=== PATIENT | male | born 1960 | race Caucasian/White ===

== ENCOUNTER → 2019-07-13 09:06 | Outpatient (BNVA) | payer SELFPAY | PROVIDERS: Family Provider Family Medicine; PCP Family Medicine; Visit Provider Family Medicine | DX: E11.9 Type 2 diabetes mellitus without complications (principal); R79.89 Other specified abnormal findings of blood chemistry; E29.1 Testicular hypofunction; F17.219 Nicotine dependence, cigarettes, with unspecified nicotine-induced disorders; I10 Essential (primary) hypertension; K52.9 Noninfective gastroenteritis and colitis, unspecified | CPT/HCPCS: 80053; 83036 ==

== ENCOUNTER → 2020-01-10 08:43 | Outpatient (BNVA) | payer MEDICARE, SELFPAY | PROVIDERS: Family Provider Family Medicine; PCP Family Medicine; Visit Provider Family Medicine | DX: I10 Essential (primary) hypertension (principal); E11.9 Type 2 diabetes mellitus without complications; G47.10 Hypersomnia, unspecified | CPT/HCPCS: 80053; 80061; 82043; 83036; 85025 ==

== ENCOUNTER → 2020-02-01 08:45 | Outpatient (BNVA) | payer MEDICARE, SELFPAY | PROVIDERS: Family Provider Family Medicine; PCP Family Medicine; Visit Provider Family Medicine | DX: N28.9 Disorder of kidney and ureter, unspecified (principal); R79.89 Other specified abnormal findings of blood chemistry; J22 Unspecified acute lower respiratory infection; L30.9 Dermatitis, unspecified | CPT/HCPCS: 80048; 84403 ==

== ENCOUNTER → 2020-03-25 13:40 | Outpatient (BNVA) | payer MEDICARE, SELFPAY | PROVIDERS: Family Provider Family Medicine; PCP Family Medicine; Visit Provider Family Medicine | DX: N28.9 Disorder of kidney and ureter, unspecified (principal) | CPT/HCPCS: 80048 ==

== ENCOUNTER 2020-04-24 08:51 | Outpatient (CLI) | payer MEDICARE, SELFPAY | END 2020-04-24 08:52 | disposition home or self-care (01) | LOC: LAB 02-21 12:34 | PROVIDERS: PCP Family Medicine; Visit Provider Family Medicine | DX: E11.9 Type 2 diabetes mellitus without complications (principal) | CPT/HCPCS: 80053; 83036 ==

== ENCOUNTER 2020-05-05 11:22 | Emergency (ER) | payer MEDICARE, MEDICAID, SELFPAY ==
[2020-05-05 11:29] VITALS: BP 130/88; PULSE 109; RESP 18; TEMP 36.8; O2SAT 96; BMI 40.3
--- NOTE | 2020-05-05 11:43 | XRR_ITS ---
PROCEDURE INFORMATION: Exam: XR Left Ribs with PA Chest, 3 Views Exam date and time: 05/05/2020 1:00 PM Age: 59 years old Clinical indication: Chest wall pain; Left; Additional info: Left rib pain TECHNIQUE: Imaging protocol: XR Left ribs 3 views with PA chest. COMPARISON: CR Chest 2 views* [id number] 07/22/2017 3:30 PM FINDINGS: Lungs: Unremarkable. No consolidation. Pleural space: Unremarkable. No pleural effusion. No pneumothorax. Heart/Mediastinum: Unremarkable. No cardiomegaly. Bones/joints: Negative for acute left rib bone abnormalities. There is a chronic fracture right 8th rib. XR/XR ribs LT mn 3V w CXR1V [id number] IMPRESSION: 1. No acute findings. 2. Chronic fracture right 8th rib. 3. Negative for acute left rib bone abnormality
--- NOTE | 2020-05-05 11:59 | PC.NURSE ---
Read and agree with triage assessment.
--- NOTE | 2020-05-05 12:02 | ED_ITS ---
HPI - General Adult General: Chief complaint: General Medical Stated complaint: L lateral chest wall pain after lifting heavy item Time Seen by Provider: 05/05/20 11:35 Source: patient Mode of arrival: ambulatory Limitations: no limitations History of Present Illness: HPI narrative: 59-year-old male patient presents to the emergency department with complaints of left lower chest wall pain. He reports was lifting a 50 pound computer earlier today, was in the bent position during his lift of the object, coughed and felt an excruciating pain of his left lower chest wall. He reports similar symptoms in the past when he tore a muscle on the right side of his chest during heavy lifting. He reports cough is chronic, has not changed from baseline. He denies shortness of breath, lightheadedness or near syncope episode. States did not take pain medication prior to arrival. Location: chest (left lateral wall) Radiation: non-radiation Severity: moderate Severity scale (1-10): 7 Quality: stabbing, aching and dull Pain Consistency: intermittent Relieving factors: immobilization and rest Exacerbating factors: movement Associated symptoms: Reports no associated symptoms and cough (not changed from baseline); Deny chest pain, diaphoresis, dyspnea, headache(s), nausea, rash, palpitations or vomiting Treatments prior to arrival: none Review of Systems General: Reports: 10 or more systems reviewed and unremarkable except in HPI and below Const: Denies: fever(s), chills or diaphoresis Eyes: Denies: blurry vision or eye redness ENMT: Denies: throat pain, dental pain or disequilibrium Card: Reports: dyspnea on exertion (due to left lateral chest wall pain); Denies: chest pain, palpitations, irregular heart rhythm or swelling of feet/ankles Resp: Denies: dyspnea, productive cough, non-productive cough or wheezing GI: Denies: abdominal pain, nausea or vomiting : Denies: dysuria Musc: Denies: neck pain, back pain, joint swelling, joint warmth or muscle weakness Skin/Breast: Denies: rash or pruritus Neuro: Denies: headache(s), weakness in extremities or behavioral changes Psych: Denies: anxiety or depression Uday/Lymph: Denies: easy bruising PFS ED PFSH: Medical History (Updated 05/05/20 @ 13:54 by DANDY Lux) Benign essential HTN COPD (chronic obstructive pulmonary disease) Depression GERD (gastroesophageal reflux disease) Low testosterone EMMANUEL (obstructive sleep apnea) Type 2 diabetes mellitus, without long-term current use of insulin Surgical History History of cholecystectomy Family History Other Alzheimer disease Cancer Hypertension Social History Smoking and tobacco status: current every day smoker cigarettes Packs smoked per day: 1 Alcohol intake: never Physical Exam Const: COMMON NORMALS: no acute distress, patient oriented x3, healthy appearing, alert and well nourished GENERAL APPEARANCE: cooperative, comfortable and well hydrated; not in distress and not anxious NUTRITIONAL APPEARANCE: obese ORIENTATION/CONSCIOUSNESS: Yes awake, Yes oriented to person, Yes oriented to place and Yes oriented to time HENMT: COMMON NORMALS: normocephalic, atraumatic, Normal external nose present and moist oral mucous membranes HEAD & SCALP: normal to inspection, normocephalic and atraumatic NOSE: Normal external nose present Eye: COMMON NORMALS: Equal, round and reactive pupils present and EOMs intact bilaterally GENERAL EYE: appearance normal, both eyes and all related structures EYELID: eyelids normal PUPIL: Yes Equal, round and reactive pupils present Neck/C-Spine: COMMON NORMALS: full ROM and no lymphadenopathy GENERAL: Yes normal visual inspection, Yes trachea midline and No anterior neck swelling CERVICAL SPINE: Yes cervical ROM normal, No Cervical spine tenderness, No Paracervical muscle tenderness, No Paracervical spasm and No Trapezius muscle tenderness Lymph: LYMPHATIC: no lymphadenopathy noted Chest: COMMONS NORMALS: normal inspection of the chest and normal inspection of the breasts CHEST: Yes localized rib tenderness with anteroposterior compression (left) Location: 9th rib, 10th rib, 11th rib and 12th rib and Yes tenderness pectoral muscle on the left (lower) with point tenderness laterally Breast/axilla inspection: Yes normal inspection of the breasts Resp: COMMON NORMALS: normal respiratory effort and clear to auscultation bilaterally AUSCULTATION: clear to auscultation bilaterally Cardio: COMMON NORMALS: regular rhythm, S1 normal heart sound present, S2 normal heart sound present and Peripheral pulses 2+ throughout RHYTHM: regular rhythm HEART SOUNDS: S1 normal heart sound present and S2 normal heart sound present PERIPHERAL PULSES: Peripheral pulses 2+ throughout GI: COMMON NORMALS: Normal to inspection, nondistended, normoactive bowel s ounds present, Soft to palpation and non-tender INSPECTION: Yes normal to inspection, No abdominal wall ecchymosis, No Abdominal wall edema, No abdominal distension, Yes central obesity and No GI erythema present PALPATION: Yes Soft to palpation : COMMON NORMALS: Yes no CVA tenderness BLADDER/KIDNEY EXAM: Yes no CVA tenderness Back/Pelvis: COMMON NORMALS: no CVA tenderness, thoracic and lumbar spine normal to inspection, no thoracic nor lumbar tenderness, thoraco-lumbar ROM normal and straight leg raise negative bilaterally THORACIC SPINE/UPPER BACK: Yes normal to inspection, Yes thoracic ROM normal, No ROM limited, No pain with ROM, No thoracic spinal tenderness, No paraspinal muscle tenderness and No paraspinal muscle spasm LUMBAR SPINE/LOWER BACK: Yes normal to inspection, Yes lumbar ROM normal, No ROM limited, No lumbar spinal tenderness, No paraspinal muscle tenderness and No paraspinal muscle spasm Extremity: COMMON NORMALS: normal to inspection and capillary refill normal Neuro: COMMON NORMALS: patient oriented x3 and no focal motor deficits SENSORIUM/ORIENTATION: Yes alert, Yes oriented to person, Yes oriented to place and Yes oriented to time Psych: COMMON NORMALS: mental status grossly normal, Normal thought process present and cooperative ACTIVITY/MOTOR BEHAVIOR: Yes appropriate eye contact THOUGHT PROCESS: Normal thought process present Skin: COMMON NORMALS: no rashes or lesions noted and turgor normal GENERAL SKIN EXAM: no rashes or lesions noted and turgor normal Course ED course: 59-year-old male patient presents to the emergency department with left chest wall strain status post lifting 50 pound computer, x-ray results negative for rib fracture, results of testing discussed with the patient. He is requesting Robitussin liquid as cough increases pain in the left chest. Prescription of Robitussin provided, he was advised to follow-up with his primary care physician this week, advised to return to emergency department if concerning symptoms. Advised to refrain from heavy lifting, greater than 10 pounds for 7 days. Prescription of tramadol at home. Advised to continue medication for pain along with Tylenol. Verbalized understanding. Vital Signs: Vital signs: Vital Signs Temperature 98.2 F 05/05/20 11:29 Pulse Rate 84 12/06/20 14:17 Respiratory Rate 16 05/05/20 14:17 Blood Pressure 118/84 05/05/20 14:17 Pulse Oximetry 94 05/05/20 14:17 [facility] - General Adult Imaging Data^: CXR: Radiologist's impression: [facility] [address] [place] [address] XRay Report Signed Patient: Ovi Jeronimo #: [id number] : 1960Acct#:[id number] Age/Sex: 59 / MADM Date: 05/05/20 Loc: ERRoom/Bed: Attending Dr: Ordering Provider/Ordering MD: Jhoana Pierre Date of Service: 05/05/20 Procedure(s): XR ribs LT mn 3V w CXR1V [id number] Accession Number(s): [id number] Report Number: [id number] PROCEDURE INFORMATION: Exam: XR Left Ribs with PA Chest, 3 Views Exam date and time: 05/05/2020 1:00 PM Age: 59 years old Clinical indication: Chest wall pain; Left; Additional info: Left rib pain TECHNIQUE: Imaging protocol: XR Left ribs 3 views with PA chest. COMPARISON: CR Chest 2 views* [id number] 07/22/2017 3:30 PM FINDINGS: Lungs: Unremarkable. No consolidation. Pleural space: Unremarkable. No pleural effusion. No pneumothorax. Heart/Mediastinum: Unremarkable. No cardiomegaly. Bones/joints: Negative for acute left rib bone abnormalities. There is a chronic fracture right 8th rib. XR/XR ribs LT mn 3V w CXR1V [id number] IMPRESSION: 1. No acute findings. 2. Chronic fracture right 8th rib. 3. Negative for acute left rib bone abnormality Dictated By:Patric Mckeon Signed By:Simi Mckeon Date/Time:05/05/201337 DD/ 36 Discharge Plan Discharge Patient Disposition: Home Clinical Impression: Rib pain on left side Chest wall muscle strain Qualifiers: Encounter type: initial encounter Qualified Code(s): S29.011A - Strain of muscle and tendon of front wall of thorax, initial encounter Condition: Stable Prescriptions: No Action benzonatate 200 mg capsule 200 mg PO BID PRN (Reason: cough) Qty: 90 RF: 0 (DME) pen needle, diabetic [Comfort EZ Pen Coolidge] 32 gauge x 1/4 needle See Rx Instructions .ROUTE .MEDSUPPLY Qty: 50 RF: 2 testosterone cypionate 200 mg/mL oil 300 mg IM .EVERY 2 WEEKS Qty: 3 RF: 5 cholestyramine-aspartame [Cholestyramine Light] 4 gram powder See Rx Instructions .ROUTE .COMPLEX Qty: 239.4 RF: 0 albuterol sulfate [ProAir HFA] 90 mcg/actuation HFA aerosol inhaler 2 puff INHALATION Q6H PRN (Reason: shortness of breath or wheezing) Qty: 8.5 RF: 5 citalopram 40 mg tablet 40 mg PO QDAY@0400 RF: 0 tramadol-acetaminophen 37.5-325 mg tablet 1 tab PO QDAY@0400 PRN (Reason: pain) RF: 0 spironolactone 25 mg tablet 25 mg PO QDAY@0400 RF: 0 meloxicam 7.5 mg tablet 7.5 mg PO DAILY@0400 RF: 0 Protonix 40 mg tablet,delayed release (DR/EC) 40 mg PO DAILY@0400 RF: 0 lisinopril 10 mg tablet 10 mg PO DAILY@0400 RF: 0 gabapentin 300 mg capsule 300 mg PO TID@04,11,14 RF: 0 Singulair 10 mg tablet 10 mg PO QDAY@0400 RF: 0 hydrochlorothiazide 25 mg tablet 25 mg PO QAM@0400 RF: 0 Spiriva with HandiHaler 18 mcg capsule, w/inhalation device 1 cap INHALATION QDAY@1400 RF: 0 Abilify 2 mg tablet 2 mg PO DAILY@0400 RF: 0 Symbicort 80-4.5 mcg/actuation HFA aerosol inhaler 2 puff INHALATION BID@14,18 RF: 0 Victoza 2-Peter 0.6 mg/0.1 mL (18 mg/3 mL) pen injector 1.2 mg SUBCUT DAILY@1500 RF: 0 esomeprazole magnesium 40 mg Capsule,Delayed Release(Dr/Ec) 40 mg PO DAILY@0400 RF: 0 Discharge Orders: Discharge ED (Routine); Ordered 05/05/20 Ordered By: Jhoana Pierre Referrals: Trudy Cason DO [Primary Care Provider] - Discharge Diet: Diabetic and Low Fat Discharge Activity: Limit activity as instructed Patient Instructions: Chest Pain - Chest Wall, Muscle Strain (ED) Activity Restrictions/Additional Instructions: Continue tramadol as prescribed for pain May take Tylenol, [id number], as needed for pain Follow-up with up with your primary care provider this week if pain is not improved, return to the emergency department if you develop worsening symptoms such as nausea, abdominal pain, fever or worsening chest pain Warm moist heat alternate with cool compresses to the affected area several times daily to help with pain No heavy lifting, greater than 10 pounds for the next 7 days Take Robitussin as needed for cough Coding Level of Care Code ED Underwear Finisher for Chg Fwd Exam Comprehensive
[2020-05-05] MEDS: HYDROcodone-acetaminophen 5-325 mg Tablet 1 TAB PO (12:23)
[2020-05-05 13:50] VITALS: BP 109/62; PULSE 92; RESP 16
[2020-05-05 14:17] VITALS: BP 118/84; PULSE 84; RESP 16; O2SAT 94
== END 2020-05-05 14:17 | disposition home or self-care (01) ==
PROVIDERS: Emergency Provider Nurse Practitioner Family; PCP Family Medicine
DX: S29.011A Strain of muscle and tendon of front wall of thorax, initial encounter (principal); R07.81 Pleurodynia; I10 Essential (primary) hypertension; J44.9 Chronic obstructive pulmonary disease, unspecified; E11.9 Type 2 diabetes mellitus without complications; F17.210 Nicotine dependence, cigarettes, uncomplicated; X50.0XXA Overexertion from strenuous movement or load, initial encounter
CPT/HCPCS: 12345; 71101; 99281; 99283

== ENCOUNTER → 2020-06-17 11:26 | Outpatient (BNVA) | payer MEDICARE, MEDICAID, SELFPAY | PROVIDERS: PCP Family Medicine; Visit Provider Family Medicine | DX: E11.9 Type 2 diabetes mellitus without complications (principal) | CPT/HCPCS: 80048 ==

== ENCOUNTER → 2020-09-16 09:53 | Outpatient (BNVA) | payer MEDICARE, SELFPAY | PROVIDERS: PCP Family Medicine; Visit Provider Family Medicine | DX: N28.9 Disorder of kidney and ureter, unspecified (principal); I10 Essential (primary) hypertension; E11.9 Type 2 diabetes mellitus without complications | CPT/HCPCS: 80048 ==

== ENCOUNTER → 2020-10-14 08:54 | Outpatient (BNVA) | payer MEDICARE, SELFPAY | PROVIDERS: PCP Family Medicine; Visit Provider Family Medicine | DX: G89.29 Other chronic pain (principal); M54.2 Cervicalgia; R79.89 Other specified abnormal findings of blood chemistry | CPT/HCPCS: 80048; 84403 ==

== ENCOUNTER → 2020-11-19 08:08 | Outpatient (BNVA) | payer MEDICARE, SELFPAY | PROVIDERS: PCP Family Medicine; Visit Provider Family Medicine | DX: E11.9 Type 2 diabetes mellitus without complications (principal); I10 Essential (primary) hypertension; F17.219 Nicotine dependence, cigarettes, with unspecified nicotine-induced disorders | CPT/HCPCS: 80061; 83036; 85025 ==

== ENCOUNTER → 2020-12-02 14:37 | Outpatient (BNVA) | payer MEDICARE, SELFPAY | PROVIDERS: PCP Family Medicine; Visit Provider Nurse Practitioner | DX: E11.42 Type 2 diabetes mellitus with diabetic polyneuropathy (principal) | CPT/HCPCS: 82043 ==

== ENCOUNTER → 2021-01-31 14:48 | Outpatient (BNVA) | payer MEDICARE, SELFPAY | PROVIDERS: PCP Family Medicine; Visit Provider Family Medicine | DX: E11.22 Type 2 diabetes mellitus with diabetic chronic kidney disease (principal); N18.9 Chronic kidney disease, unspecified; E11.42 Type 2 diabetes mellitus with diabetic polyneuropathy | CPT/HCPCS: 80048 ==

== ENCOUNTER → 2021-05-02 08:26 | Outpatient (BNVA) | payer MEDICARE, SELFPAY | PROVIDERS: PCP Family Medicine; Visit Provider Family Medicine | DX: E11.9 Type 2 diabetes mellitus without complications (principal) | CPT/HCPCS: 80053; 83036 ==

== ENCOUNTER → 2021-07-09 09:35 | Outpatient (BNVA) | payer MEDICARE, SELFPAY | PROVIDERS: PCP Family Medicine; Visit Provider Family Medicine | DX: N18.9 Chronic kidney disease, unspecified (principal) | CPT/HCPCS: 80048 ==

== ENCOUNTER → 2021-08-15 13:27 | Outpatient (BNVA) | payer MEDICARE, SELFPAY | PROVIDERS: PCP Family Medicine; Visit Provider Family Medicine | DX: E87.1 Hypo-osmolality and hyponatremia (principal) | CPT/HCPCS: 80048 ==

== ENCOUNTER → 2021-10-31 08:22 | Outpatient (BNVA) | payer MEDICARE, SELFPAY | PROVIDERS: PCP Family Medicine; Visit Provider Family Medicine | DX: I10 Essential (primary) hypertension (principal); E11.9 Type 2 diabetes mellitus without complications; K21.9 Gastro-esophageal reflux disease without esophagitis; Z12.11 Encounter for screening for malignant neoplasm of colon; R60.0 Localized edema; F17.219 Nicotine dependence, cigarettes, with unspecified nicotine-induced disorders | CPT/HCPCS: 80053; 80061; 82043; 83036; 85025 ==

== ENCOUNTER → 2021-11-10 08:52 | Outpatient (BNVA) | payer MEDICARE, MEDICAID, SELFPAY | PROVIDERS: PCP Family Medicine; Visit Provider Surgery | DX: K21.9 Gastro-esophageal reflux disease without esophagitis (principal); Z12.11 Encounter for screening for malignant neoplasm of colon | CPT/HCPCS: 99203 ==

== ENCOUNTER 2022-01-06 08:55 | Inpatient (IN) | payer MEDICARE, MEDICAID, SELFPAY ==
[2022-01-06] VITALS (19 sets, daily range): BP systolic 72–112; BP diastolic 46–90; PULSE 68–90; RESP 18; TEMP 36.4–36.8; O2SAT 93–99; BMI 27.6
--- NOTE | 2022-01-06 09:06 | XRR_ITS ---
PROCEDURE INFORMATION: Exam: XR Chest Exam date and time: 01/06/2022 9:33 AM Age: 61 years old Clinical indication: Cough and dyspnea; Additional info: Dyspnea/cough TECHNIQUE: Imaging protocol: Radiologic exam of the chest. Views: 1 view. Total images: 3 COMPARISON: CR XR ribs LT mn 3V w CXR1V [id number] 05/05/2020 1:00 PM FINDINGS: Lungs: Unremarkable. No consolidation. Pleural spaces: Unremarkable. No pleural effusion. No pneumothorax. Heart/Mediastinum: Unremarkable. No cardiomegaly. Bones/joints: Old right rib fractures are evident. Osseous structures are unchanged from the prior exam. XR/XR chest 1V portable [id number] IMPRESSION: No acute cardiopulmonary process.
--- NOTE | 2022-01-06 09:13 | ECG_ITS ---
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 Measurements Intervals Lyndon Rate: 81 P: 77 WV: 140 QRS: 150 QRSD: 103 T: 48 QT: 414 QTc: 482 Interpretive Statements SINUS RHYTHM POSSIBLE RIGHT VENTRICULAR HYPERTROPHY [SOME/ALL OF: PROMINENT R IN V1, LATE TRANSITION, RAD, JESSI, SSS] MODERATE ST DEPRESSION [0.05+ mV ST DEPRESSION] No previous ECG available for comparison Electronically Signed On 01-06-2022 18:58:05 CDT by Neymar Pollard M.D. [id number]
[2022-01-06 09:27] LABS: ABG PCO2 36.6 mmHg (35-45); ABG PH Result 7.55 (7.35-7.45); Alveolar-Arterial Oxygen Gradi 4.5 mmHg (5-10); Arterial Blood Gas Hematocrit 56.9 % (42-52); Base Excess ABG 9.5 mmol/L (-2.0-2.0); Blood Gas Operator Identificat glc; Blood Gas Sample Site Brachial, right; Blood Gas Sample Type Arterial; Carboxyhemoglobin 8.6 %THgb (0.4-20.1); HCO3 ABG 32.3 mmol/L (22-26); HGB O2 Sat 89.3 % (95-100); Ionized Calcium Level - ABG 1.1 mmol/L (1.1-1.4); Methemoglobin 0.2 % (0.4-1.5); Oxygen Device ROOM AIR; Oxygen Saturation ABG 97.8; PO2 ABG 69.9 mmHg (80.0-100.0); Potassium Level - ABG 2.1 mmol/L (3.5-5.0); Total Hemoglobin 18.6 g/dL (14-18)
--- NOTE | 2022-01-06 09:32 | ED_ITS ---
HPI - Dizziness General: Chief Complaint: Dizziness Stated Complaint: headache, dizzy Time Seen by Provider: 01/06/22 09:04 Source: patient Mode of arrival: ambulatory Limitations: no limitations History of Present Illness: HPI Narrative: 61-year-old male presents emergency room with hypotension. Patient has nearly had a 100 pound weight loss in the last 10 months unintentionally. He denies any fever sweats or chills counterpoint was very weak and now using a cane he frequently has vomiting and early satiety difficulty with swallowing he denies any chest pain or shortness of breath denies any medic easy melena hematemesis coffee-ground emesis no hematuria no dysuria urgency or frequency no recent fever sweats or chills no productive cough. MD elicited complaint: dizziness and lightheadedness Timing: gradual onset Exacerbating factors: other (Eating makes nausea and vomiting worse) Relieving factors: nothing Associated symptoms: Reports malaise, nausea and vomiting; Denies chest pain, chills, nasal congestion or palpitations Associated neuro symptoms: Reports dysphagia; Deny confusion, difficulty speaking, diplopia, extremity weakness, facial numbness, facial weakness, gait changes, numbness in extremities or visual changes Review of Systems Const: Reports: change in appetite, fatigue and malaise; Denies: fever(s), chills or body aches ENMT: Denies: throat pain, ear or mastoid pain, nasal discharge or nasal congestion Card: Denies: chest pain, palpitations, irregular heart rhythm, edema, dyspnea on exertion or orthopnea Resp: Denies: dyspnea, productive cough or non-productive cough GI: Reports: nausea, vomiting, dysphagia, early satiety and other (Unexplained weight loss of nearly 100 pounds in 10 months); Denies: abdominal pain, hematemesis, coffee ground emesis, diarrhea, con stipation, bloating, hematochezia or melena : Denies: flank pain, difficulty urinating, dysuria, urinary frequency or urinary urgency Skin/Breast: Denies: rash or pruritus Neuro: Denies: numbness in extremities or confusion PFS ED PFSH: Medical History Benign essential HTN COPD (chronic obstructive pulmonary disease) Depression GERD (gastroesophageal reflux disease) Low testosterone EMMANUEL (obstructive sleep apnea) Type 2 diabetes mellitus, without long-term current use of insulin Surgical History History of cholecystectomy Family History Other Alzheimer disease Cancer Hypertension Social History Smoking and tobacco status: current every day smoker cigarettes Packs smoked per day: 1 Alcohol intake: never Physical Exam Const: GENERAL APPEARANCE: cooperative and comfortable ORIENTATION/CONSCIOUSNESS: Yes awake, Yes oriented to person, Yes oriented to place and Yes oriented to time HENMT: COMMON NORMALS: normocephalic, atraumatic and hearing grossly normal bilaterally HEAD & SCALP: normocephalic and atraumatic Resp: COMMON NORMALS: normal respiratory effort, No retractions, No use of accessory muscles and clear to auscultation bilaterally AUSCULTATION: clear to auscultation bilaterally Cardio: COMMON NORMALS: regular rate, regular rhythm and No murmurs present (Cardio) RATE: regular rate RHYTHM: regular rhythm GI: COMMON NORMALS: Soft to palpation and No hepatosplenomegaly present AUSCULTATION: Yes normoactive bowel sounds PALPATION: Yes Soft to palpation, No Tenderness to palpation present (GI), No Guarding due to palpation present (GI) and Yes No hepatosplenomegaly present Extremity: COMMON NORMALS: normal to inspection, capillary refill normal, no clubbing, cyanosis or edema, no calf tenderness and no pedal edema Neuro: SENSORIUM/ORIENTATION: Yes oriented to person, Yes oriented to place and Yes oriented to time Skin: COMMON NORMALS: no rashes or lesions noted GENERAL SKIN EXAM: no rashes or lesions noted Course Vital Signs: Vital signs: Vital Signs Temperature 97.6 F 01/06/22 08:58 Pulse Rate 69 01/06/22 13:00 Respiratory Rate 18 01/06/22 08:58 Blood Pressure 99/70 01/06/22 13:00 Pulse Oximetry 94 01/06/22 13:00 Oxygen Delivery Me thod 01/06/22 13:00 MDM - Dizziness Medical Decision Making CT concerning for esophageal cancer especially given his weight loss and his description of dysphagia. Discussed Dr. Carter will admit he is consulted Dr. Frederick. Patient has hypokalemia which we have begun to address he also has acute kidney injury Dr. Carter is aware. Reviewed with patient any he is aware of plan as well. Medical Records I reviewed the patient's medical records. Lab Data I reviewed the patient's lab results. : 01/06/22 09:30 01/06/22 09:30 Radiology Impressions Chest X-Ray 01/06/22 09:06 IMPRESSION: No acute cardiopulmonary process. Chest/Abdomen/Pelvis CT 01/06/22 12:32 IMPRESSION: 1. Distal esophageal wall thickening with extension into the fundus of the st omach. Differential includes esophagitis and neoplasm. Suspect neoplasm as there are several enlarged lymph nodes at the gastrohepatic ligament with the largest measuring 2.4 cm in diameter. 2. Additional lobulated thickening extending into the fundus of the stomach with mild diffuse mucosal thickening of the stomach. 3. Recommend upper endoscopy to evaluate the distal esophagus and the stomach. 4. PET/CT may be helpful to evaluate the abnormal lymph nodes along the gastrohepatic ligament. There are smaller retroperitoneal lymph nodes. 5. Indeterminate bilateral hilar lymph nodes with the largest measuring 12 mm on the LEFT. Laboratory Results WBC 12.3 10^3/uL (4.0-10.0) H 01/06/22 09:30 RBC 5.53 10^6/uL (4.1-5.3) H 01/06/22 09:30 Hgb 17.6 g/dL (11.7-16.6) H 01/06/22 09:30 Hct 48.8 % (42.0-52.0) 01/06/22 09:30 MCV 88.2 fl (80-94) 01/06/22 09:30 MCH 31.8 pg (28.0-34.0) 01/06/22 09:30 MCHC 36.1 g/dL (30.0-36.0) H 01/06/22 09:30 RDW 13.1 % (12.1-15.1) 01/06/22 09:30 Plt Count 320 10^3/cmm (130-400) 01/06/22 09:30 MPV 9.8 fL (7.4-10.4) 01/06/22 09:30 Neut % (Auto) 73.0 % 01/06/22 09:30 Lymph % (Auto) 20.4 % 01/06/22 09:30 [place] % (Auto) 5.1 % 01/06/22 09:30 Eos % (Auto) 0.8 % 01/06/22 09:30 Baso % (Auto) 0.4 % 01/06/22 09:30 Neut # (Auto) 8.95 10^3/uL (1.8-7.7) H 01/06/22 09:30 Lymph # (Auto) 2.5 10^3/uL (0.8-4.8) 01/06/22 09:30 [place] # (Auto) 0.6 10^3/uL (0.2-0.9) 01/06/22 09:30 Eos # (Auto) 0.1 10^3/uL (0.0-0.8) 01/06/22 09:30 Baso # (Auto) 0.1 10^3/uL (0.0-0.1) 01/06/22 09:30 Nucleated RBC % (auto) 0 % 01/06/22 09:30 Nucleated RBCs # 0.0 /100WBC 01/06/22 09:30 Specimen Type Arterial 01/06/22 09:15 Sample Site Brachial, right 01/06/22 09:15 ABG pH 7.55 (7.35-7.45) H 01/06/22 09:15 ABG pCO2 36.6 mmHg (35-45) 01/06/22 09:15 ABG pO2 69.9 mmHg (80.0-100.0) L 01/06/22 09:15 ABG HCO3 32.3 mmol/L (22-26) H 01/06/22 09:15 ABG O2 Saturation 97.8 01/06/22 09:15 ABG Base Excess 9.5 mmol/L (-2.0-2.0) H 01/06/22 09:15 Jamel Test N/a 01/06/22 09:15 A-a O2 Gradient 4.5 mmHg (5-10) L 01/06/22 09:15 Hematocrit 56.9 % (42-52) H 01/06/22 09:15 Hgb O2 Saturation 89.3 % (95-100) L 01/06/22 09:15 Carboxyhemoglobin 8.6 %THgb (0.4-20.1) 01/06/22 09:15 Methemoglobin 0.2 % (0.4-1.5) L 01/06/22 09:15 Total Hemoglobin 18.6 g/dL (14-18) H 01/06/22 09:15 Sodium 126.0 mmol/L (131-143) L 01/06/22 09:15 Potassium 2.1 mmol/L (3.5-5.0) L 01/06/22 09:15 Glucose 82.0 mg/dL (70-115) 01/06/22 09:15 Ionized Calcium 1.1 mmol/L (1.1-1.4) 01/06/22 09:15 O2 Delivery Device Room air 01/06/22 09:15 FiO2 21.0 % 01/06/22 09:15 Torpedo Shooter ID glc 01/06/22 09:15 Sodium 130 mmol/L (136-145) L 01/06/22 09:30 Potassium 2.1 mmol/L (3.5-5.1) L* 01/06/22 09:30 Chloride 84 mmol/L (98-107) L 01/06/22 09:30 Carbon Dioxide 31 mmol/L (22-29) H 01/06/22 09:30 Anion Gap 17.1 (5-19) 01/06/22 09:30 BUN 19 mg/dL (6-20) 01/06/22 09:30 Creatinine 1.8 mg/dL (0.7-1.2) H 01/06/22 09:30 GFR Calculation 38.8 mL/min (90-130) L 01/06/22 09:30 Glucose 82 mg/dL (65-115) 01/06/22 09:30 Calculated Osmolality 271 mOsm/kg (285-295) L 01/06/22 09:30 Lactic Acid 1.3 mmol/L (0.5-2.2) 01/06/22 09:30 Calcium 8.5 mg/dL (8.5-10.5) 01/06/22 09:30 Total Bilirubin 0.6 mg/dL (0.15-1.2) 01/06/22 09:30 AST 14 U/L (0-40) 01/06/22 09:30 ALT 10 U/L (0-41) 01/06/22 09:30 Alkaline Phosphatase 87 IU/L (40-130) 01/06/22 09:30 Troponin T Baseline 22 ng/L (0-15) H 01/06/22 09:30 Troponin T 120 Minute 17.80 ng/L (0-15) H 01/06/22 11:16 Delta Troponin T -4.20 ABS# (0-10) L 01/06/22 11:16 Troponin T Hi Sens 6Hr 17.92 ng/L (0-15) H 01/06/22 15:10 Troponin T Hi Sens 6Hr Delta -4.08 ng/L (0-12) L 01/06/22 15:10 Total Protein 6.5 g/dL (6.6-8.7) L 01/06/22 09:30 Albumin 2.9 g/dL (3.5-5.2) L 01/06/22 09:30 Globulin 3.6 g/dL (1.3-4.6) 01/06/22 09:30 Lipase 14 U/L (13-60) 01/06/22 09:30 Urine Color Yellow (Yellow) 01/06/22 11:27 Urine Appearance Clear (CLEAR) 01/06/22 11:27 Urine pH 5 (5-7) 01/06/22 11:27 Ur Specific [place] 1.015 (1.005-1.030) 01/06/22 11:27 Urine Protein Neg (Negative) 01/06/22 11:27 Urine Glucose (UA) Norm (Normal) 01/06/22 11:27 Urine Ketones Negative (Negative) 01/06/22 11:27 Urine Blood Neg (Negative) 01/06/22 11:27 Urine Nitrate Negative (Negative) 01/06/22 11:27 Urine Bilirubin Neg (Negative) 01/06/22 11:27 Urine Urobilinogen Norm mg/dL (Negative) 01/06/22 11:27 Ur Leukocyte Esterase Negative (Negative) 01/06/22 11:27 Discharge Plan Discharge Patient Disposition: Admitted As Inpatient Clinical Impression: Esophageal mass, Type 2 diabetes mellitus, without long-term current use of insulin, Weight loss, abnormal, Hypokalemia, Acute kidney injury, Benign essential HTN Condition: Stable Prescriptions: No Action Spiriva with HandiHaler 18 mcg capsule, w/inhalation device 1 cap INHALATION QDAY@1400 90 Days Qty: 90 1RF pantoprazole [Protonix] 40 mg tablet,delayed release (DR/EC) 40 mg PO BID 90 Days Qty: 180 0RF (DME) pen needle, diabetic [Comfort EZ Pen [place]] 32 gauge x 1/4 needle See Rx Instructions .ROUTE .MEDSUPPLY Qty: 50 2RF Rx Instructions: As directed for Victoza Singulair 10 mg tablet 10 mg PO DAILY Qty: 90 3RF spironolactone 25 mg tablet 25 mg PO QDAY@0400 Qty: 90 0RF potassium chloride [Klor-Con 10] 10 mEq tablet extended release 10 meq PO DAILY Qty: 90 0RF fluticasone propion-salmeterol [Advair Diskus] 250-50 mcg/dose blister with device 1 inh inhalation BID Qty: 60 5RF citalopram 40 mg tablet 40 mg PO QDAY@0400 Qty: 90 0RF furosemide [Lasix] 20 mg tablet 20 mg PO DAILY 30 Days Qty: 30 1RF lisinopril 10 mg tablet 10 mg PO DAILY@0400 90 Days Qty: 90 0RF albuterol sulfate [ProAir HFA] 90 mcg/actuation HFA aerosol inhaler 2 puff INHALATION Q6H PRN (Reason: shortness of breath or wheezing) Qty: 8.5 5RF tramadol-acetaminophen 37.5-325 mg tablet 1 tab PO QDAY@0400 PRN (Reason: pain) Qty: 30 1RF Rx Instructions: Must last 30 days testosterone cypionate 200 mg/mL oil 300 mg IM .EVERY 2 WEEKS 30 Days Qty: 3 3RF Rx Instructions: three bottles each month total of 3 ML gabapentin 300 mg capsule See Rx Instructions .ROUTE .COMPLEX Qty: 120 0RF Dose Instruction: TAKE 1 CAPSULE BY MOUTH AT 1:00AM, TAKE 1 CAPSULE AT NOON, AND TAKE 1 CAPSULE EVERY DAY AT BEDTIME Rx Instructions: TAKE 1 CAPSULE BY MOUTH AT 1:00AM, TAKE 1 CAPSULE AT NOON, AND TAKE 1 CAPSULE EVERY DAY AT BEDTIME (DME) pen needle, diabetic [BD Ultra-Fine Micro Pen Needle] 32 gauge x 1/4 needle See Rx Instructions .Route Qty: 100 11RF Rx Instructions: USE DIRECTED FOR VICTOZA aripiprazole [Abilify] 2 mg tablet 2 mg PO DAILY Rx Instructions: TAKE 1 TABLET BY MOUTH DAILY AT 4 AM Cholestyramine Light 4 gram powder 4 g PO BID PRN (Reason: Diarrhea) Victoza 2-Peter 0.6 mg/0.1 mL (18 mg/3 mL) pen injector 1.2 mg SUBCUT DAILY Rx Instructions: ADMINISTER 1.2 MG UNDER THE SKIN DAILY AT 3 PM Carafate 1 gram tablet 1 g PO Q6H PRN (Reason: Stomach Upset) Flonase Allergy Relief 50 mcg/actuation spray,suspension 2 spray intranasal DAILY PRN (Reason: Shortness Of Breath) Rx Instructions: administer into each nostril Referrals: Trudy Cason DO [Primary Care Provider] - Coding Level of Care Code ED Vest Front Presser for Colleen Chaidez
[2022-01-06] MEDS: sodium chloride 0.9% 2,558.25 ML 2558.25 ML IV (09:42)
[2022-01-06 09:45] LABS: Basophils # 0.1 10^3/uL (0.0-0.1); Basophils % 0.4 %; Eosinophils # 0.1 10^3/uL (0.0-0.8); Eosinophils % 0.8 %; Hematocrit 48.8 % (42.0-52.0); Hemoglobin 17.6 g/dL (11.7-16.6); Lymphocytes # 2.5 10^3/uL (0.8-4.8); Lymphocytes % 20.4 %; Mean Corpuscular HGB Conc 36.1 g/dL (30.0-36.0); Mean Corpuscular Hemoglobin 31.8 pg (28.0-34.0); Mean Corpuscular Volume 88.2 fl (80-94); Mean Platelet Volume 9.8 fL (7.4-10.4); Monocytes # 0.6 10^3/uL (0.2-0.9); Monocytes % 5.1 %; Neutrophils # 8.95 10^3/uL (1.8-7.7); Nucleated Red Blood Cells % 0 %; Platelet Count 320 10^3/cmm (130-400); Red Blood Count 5.53 10^6/uL (4.1-5.3); Red Cell Distribution Width 13.1 % (12.1-15.1); White Blood Count 12.3 10^3/uL (4.0-10.0)
[2022-01-06 10:09] LABS: Lactic Sepsis W/Reflex 1.3 mmol/L (0.5-2.2)
[2022-01-06 10:11] LABS: Troponin(5th) Baseline 22 ng/L (0-15)
[2022-01-06 10:32] LABS: Alanine Aminotransferase 10 U/L (0-41); Albumin Level 2.9 g/dL (3.5-5.2); Alkaline Phosphatase 87 IU/L (40-130); Aspartate Amino Transferase 14 U/L (0-40); Blood Urea Nitrogen 19 mg/dL (6-20); Calcium 8.5 mg/dL (8.5-10.5); Carbon Dioxide 31 mmol/L (22-29); Chloride 84 mmol/L (98-107); Globulin 3.6 g/dL (1.3-4.6); Glomerular Filtration Rate 38.8 mL/min (90-130); Glucose 82 mg/dL (65-115); Lipase 14 U/L (13-60); Osmolality Calculated 271 mOsm/kg (285-295); Sodium 130 mmol/L (136-145); Total Bilirubin 0.6 mg/dL (0.15-1.2); Total Protein 6.5 g/dL (6.6-8.7)
[2022-01-06 10:37] LABS: Anion Gap 17.1 (5-19)
[2022-01-06 10:38] LABS: Potassium 2.1 mmol/L (3.5-5.1)
--- NOTE | 2022-01-06 11:11 | ECG_ITS ---
[facility] Test Date: 2022-01-06 Pat Name: Ovi Jeronimo Department: Room: Gender: Male Telecommunications Clerk: : 1960 Requested By: Jose Angel Hebert Order Number: [id number] Julita MD: Neymar Pollard M.D. Measurements Intervals [place] Rate: 69 P: 72 ND: 173 QRS: 128 QRSD: 111 T: 50 QT: 367 QTc: 396 Interpretive Statements SINUS RHYTHM POSSIBLE RIGHT VENTRICULAR HYPERTROPHY [SOME/ALL OF: PROMINENT R IN V1, LATE TRANSITION, RAD, JESSI, SSS] NONSPECIFIC T-WAVE ABNORMALITY Compared to ECG 01/06/2022 09:13:00 T-wave abnormality now present ST (T wave) deviation no longer present Electronically Signed On 01-06-2022 19:01:31 CDT by Neymar Pollard M.D. [id number]
[2022-01-06 11:32] LABS: Add Urine Microscopic? NO; Charge for UA Resulting for Rev
[2022-01-06 11:33] LABS: Bilirubin Urine Neg (Negative); Blood Urine Neg (Negative); Glucose Urine UA Norm (Normal); Ketones Urine Negative (Negative); Leukocyte Esterase Urine Negative (Negative); Nitrate Urine Negative (Negative); Protein Urine Neg (Negative); Specific Gravity, Urine 1.015 (1.005-1.030); Urine Appearance Clear (CLEAR); Urine Color Yellow (Yellow); Urobilinogen Urine Norm (Negative); pH Urine 5 (5-7)
--- NOTE | 2022-01-06 12:32 | CT_ITS ---
WS: [id number] CT CHEST, ABDOMEN AND PELVIS WITH CONTRAST. HISTORY: weight loss, dysphagia TECHNIQUE: Contiguous 5 mm axial imaging performed through the chest, abdomen and pelvis with IV cont rast, oral contrast has not been provided. Coronal and sagittal reformats chest. Coronal and sagittal reformats through the abdomen and pelvis. All CT scans at [facility] use at least one of the se dose optimization techniques: automated exposure control; mA and/or kV adjustment per patient size (includes targeted exams where dose is matched to clinical indication); or iterative reconstruction. CONTRAST: Omnipaque 350; 95 mL IV. DLP: 1098.65 mGy.cm COMPARISON: None available. Chest CT: No pulmonary mass, pneumonia or nodules. There is some very minimal distal interstitial thi ckening which is diffuse and can be seen with a mild pneumonitis. No pleural effusion. Heart size is normal. Very mild atherosclerosis in the aorta. Normal size pulmonary artery. Fluid distention of the esophagus beginning at the level of the james extending to the gastroesophag eal junction. There is diffuse wall thickening of the distal esophagus measuring up to 14 mm. Possibl e stricture at the GE junction with increased soft tissue. Small hilar lymph nodes with the largest on the LEFT measuring [address]: Normal size liver. No bile duct dilatation. Prior cholecystectomy. Normal size spleen. No rmal pancreas and adrenal glands. Normal size kidneys. Cortical cyst lower pole LEFT kidney measures 8 mm. Atherosclerosis aorta. No aneurysm. Diffuse wall thickening throughout the stomach. No obstruction from the antrum. Nodular thickening to wards the fundus of the stomach. Enlarged lymph node along the gastrohepatic ligament. There is a lym ph node measuring 2.4 cm in diameter. There is a smaller adjacent 1.0 cm lymph node. There are severa l small subcentimeter retrocrural and retroperitoneal lymph nodes. No significant diverticula throughout the colon. The appendix is not definitely identified. Pelvic CT: Urinary bladder is well distended. No free fluid or adenopathy within the pelvis. No osteoblastic or osteolytic bone disease. Prior healed rib fractures in the posterior RIGHT mid to lower thorax. CT/CT chest abd pel w con* IMPRESSION: 1. Distal esophageal wall thickening with extension into the fundus of the sto mach. Differential includes esophagitis and neoplasm. Suspect neoplasm as there are several enlarged lymph nodes at the gastrohepatic ligament with the larges t measuring 2.4 cm in diameter. 2. Additional lobulated thickening extending into the fundus of the stomach wi th mild diffuse mucosal thickening of the stomach. 3. Recommend upper endoscopy to evaluate the distal esophagus and the stomach. 4. PET/CT may be helpful to evaluate the abnormal lymph nodes along the gastro hepatic ligament. There are smaller retroperitoneal lymph nodes. 5. Indeterminate bilateral hilar lymph nodes with the largest measuring 12 mm on the LEFT.
[2022-01-06] MEDS: iohexol 350 mg/mL 100 mL Btl IV (12:40)
[2022-01-06] MEDS: potassium chloride premix 100 ML 25 MEQ IV ×2 (13:12→16:53)
--- NOTE | 2022-01-06 13:23 | PM.HP ---
Providers/Chief Complaint Admitting Physician: Jhoan Ornelas MD, hospitalist Primary Care Provider: Trudy Cason DO Chief Complaint: headache, dizzy History of Present Illness Ovi Jeronimo is a 61 year old male who presents to the emergency department complaining of dizziness, and significant weight loss. He reports he is having trouble keeping any kind of food down. He has had gradual increase in difficulty swallowing solids, for many months. He believes this became more significant in November. He has had some issues with liquids as well, but not as much. He has an occasional loose stool after 3 to 4 days. Over the last 6 to 10 months he has lost a tremendous amount of weight. He used to weigh approximately 140 kg, in 2019. No fever, cough, rhinorrhea. Does not really complain of headache to me. Denies nauseousness. Points to his upper sternum in regards to where food gets stuck or does not go down and he has to spit back up. He has had no blood in his stool, or black or tarry stools. He has not vomited any blood. In his primary care provider's office he was found to be hypotensive. In the emergency department he was found to be hypotensive and was given fluid boluses. Potassium is currently being supplemented. Review of Systems General: Reports: 10 or more systems reviewed and unremarkable except in HPI and below Const: Reports: change in appetite, change in weight, fatigue and malaise; Denies: fever(s) or chills Eyes: Denies: change in vision ENMT: Denies: throat pain Card: Denies: chest pain Resp: Denies: dyspnea GI: Reports: dysphagia and change in bowel habits : Denies: flank pain Musc: Denies: neck pain Skin/Breast: Denies: rash Neuro: Reports: dizziness; Denies: headache(s) Psych: Denies: anxiety or depression Endo: Denies: polyuria Uday/Lymph: Denies: easy bruising All/Imm: Denies: urticaria Medications/Allergies Home Medications Medication Instructions Recorded Confirmed Last Taken Type pen needle, diabetic 32 gauge x #50 ea 05/21/20 01/06/22 Unknown Rx / (Comfort EZ Pen [place]) montelukast 10 mg tablet 10 mg PO DAILY #90 tabs 12/13/20 01/06/22 01/05/22 Rx (Singulair) spironolactone 25 mg tablet 25 mg PO QDAY@0400 #90 tabs 07/28/21 01/06/22 01/05/22 Rx tiotropium bromide 18 mcg capsule 1 cap inhalation QDAY@1400 90 days 08/15/21 01/06/22 01/05/22 Rx with inhalation device (Spiriva #90 inhalations with HandiHaler) potassium chloride 10 mEq 10 meq PO DAILY #90 tabs 08/19/21 01/06/22 01/05/22 Rx tablet,extended release (Klor-Con) fluticasone 250 mcg-salmeterol 50 1 inh inhalation BID #60 ea 09/01/21 01/06/22 01/05/22 Rx mcg/dose blistr powdr for inhalation (Advair Diskus) citalopram 40 mg tablet 40 mg PO QDAY@0400 #90 tabs 09/10/21 01/06/22 01/06/22 Rx furosemide 20 mg tablet (Lasix) 20 mg PO DAILY 30 days #30 tabs 10/15/21 01/06/22 01/05/22 Rx lisinopril 10 mg tablet 10 mg PO DAILY@0400 90 days #90 10/23/21 01/06/22 01/05/22 Rx tabs albuterol sulfate 90 mcg/actuation 2 puff inhalation Q6H PRN 10/30/21 01/06/22 Unknown Rx aerosol inhaler (ProAir HFA) shortness of breath or wheezing #8.5 grams pantoprazole 40 mg tablet,delayed 40 mg PO BID 90 days #180 tabs 11/10/21 01/06/22 01/05/22 Rx release (Protonix) tramadol 37.5 mg-acetaminophen 325 1 tab PO QDAY@0400 PRN pain #30 11/18/21 01/06/22 01/05/22 Rx mg tablet tabs testosterone cypionate 200 mg/mL 300 mg (1.5 mL) IM .EVERY 2 WEEKS 12/08/21 01/06/22 Unknown Rx intramuscular oil 30 days #3 mL gabapentin 300 mg capsule See Rx Instructions .Route 12/24/21 01/06/22 01/06/22 Rx .COMPLEX #120 caps pen needle, diabetic 32 gauge x #100 ea 12/26/21 01/06/22 Unknown Rx 1/4 (BD Ultra-Fine Micro Pen Needle) aripiprazole 2 mg tablet (Abilify) 2 mg PO DAILY 12/30/21 01/06/22 01/06/22 History cholestyramine-aspartame 4 gram 4 g PO BID PRN Diarrhea 12/30/21 01/06/22 Unknown History oral powder (Cholestyramine Light) liraglutide 0.6 mg/0.1 mL (18 mg/3 1.2 mg SUBCUT DAILY 12/30/21 01/06/22 01/05/22 History mL) subcutaneous pen injector (Victoza 2-Peter) fluticasone propionate 50 2 spray intranasal DAILY PRN 01/06/22 01/06/22 Unknown History mcg/actuation nasal Shortness Of Breath spray,suspension (Flonase Allergy Relief) sucralfate 1 gram tablet (Carafate) 1 g PO Q6H PRN Stomach Upset 01/06/22 01/06/22 Unknown History Allergies Allergy/AdvReac Type Severity Reaction Status Date / Time No Known Allergies Allergy Verified 01/06/22 08:34 PFSH Acute PFSH: Medical History Benign essential HTN COPD (chronic obstructive pulmonary disease) Depression GERD (gastroesophageal reflux disease) Low testosterone EMMANUEL (obstructive sleep apnea) Type 2 diabetes mellitus, without long-term current use of insulin Surgical History History of cholecystectomy Family History Other Alzheimer disease Cancer Hypertension Social History Smoking and tobacco status: current every day smoker cigarettes Packs smoked per day: 1 Alcohol intake: never Vitals/I&O/Wt Last Vital Signs Temp 97.6 F 01/06/22 08:58 Pulse 88 01/06/22 08:58 Resp 18 01/06/22 08:58 BP 74/53 01/06/22 08:58 Pulse Ox 99 01/06/22 08:58 O2 Del Method 01/06/22 08:58 01/05/22 01/06/22 01/06/22 22:59 06:59 14:59 Intake Total 2558.25 / 2558.25 Balance 2558.25 / 2558.25 Weight last 48 hrs Weight 85.275 kg Data : 01/06/22 09:30 01/06/22 09:30 Other Labs: ABG demonstrates a pH of 7.55, PCO2 36, PO2 of 69 1.3 LFTs normal Troponin 22 with repeat of 17 Albumin 2.9 Urinalysis negative Chest x-ray read as negative CT chest abdomen pelvis suspect neoplasm distal esophageal wall secondary to thickening and some enlarged lymph nodes. He demonstrates sinus rhythm, right axis deviation, nonspecific ST-T wave changes A&P Assessment and plan (1) Dysphagia: Patient's history is very concerning for esophageal obstruction, possible malignancy CT scan seems to confirm this Will obtain GI consult, with general surgery Plan for EGD tomorrow Continue hydration currently Discussed in detail with patient Status: Acute (2) Weight loss, abnormal: See above Status: Acute (3) Hyponatremia: Likely secondary to renal dysfunction as well as vomiting Hydration with normal saline Repeat tomorrow Status: Acute (4) Hypokalemia: Supplementation initiated in the emergency department Repeat potassium tomorrow morning Magnesium was checked and normal Additional supplementation as needed Repeat laboratory later tonight. Status: Acute (5) Acute kidney injury: Significant acute kidney injury on presentation No evidence of obstruction on CT scan Avoid renal toxic medication Hydration Urinalysis was checked and normal Repeat renal function tomorrow Status: Acute (6) Type 2 diabetes mellitus, without long-term current use of insulin: Sliding scale insulin Status: Chronic Qualifiers: Diabetes mellitus complication status: without complication Qualified Code(s): E11.9 - Type 2 diabetes mellitus without complications (7) COPD (chronic obstructive pulmonary disease): No evidence of exacerbation DuoNeb every 6 hours as needed Budesonide twice daily Status: Acute Qualifiers: COPD type: emphysema Emphysema type: panlobular Qualified Code(s): J43.1 - Panlobular emphysema Plan Other medical problems as outlined in past medical history Full code Heparin for DVT prophylaxis Attestations Medical Necessity Statement*: Will need greater than 2 midnight stay for evaluation and treatment of dysphagia, acute kidney injury, probable esophageal mass, hypokalemia Coding Level of Care Code Acute Pediatric Oncologist for [facility] Fwd Diagnoses Dysphagia R13.10 Weight loss, abnormal R63.4 Hyponatremia E87.1 Hypokalemia E87.6 Acute kidney injury N17.9 Type 2 diabetes mellitus, without long-term current use of insulin E11.9 Diabetes mellitus complication status: without complication COPD (chronic obstructive pulmonary disease) J43.1 COPD type: emphysema Emphysema type: panlobular
--- NOTE | 2022-01-06 14:41 | PM.CONSULT ---
Providers/Reason For Consult Consulting Physician/Specialty*: lAex Boles MD Reason for Consult*: Concern for esophageal cancer Requesting Physician: Dr. Ornelas Attending Physician: Dr. Ornelas Primary Care Provider: Trudy Cason DO History of Present Illness History of Present Illness Ms. Ovi Jeronimo is a pleasant 61 year old male presented to the emergency department of [facility] with history of dizziness and nonintentional weight loss patient does report history of dysphagia and has been progressive over the past few months to the extent that he started to have food stuck and then vomited thereafter. No other associated symptoms. Patient reports that he smokes and he used to drink before couple of years. Patient undergone a CT of the chest abdomen and pelvis that did show 1.? Distal esophageal wall thickening with extension into the fundus of the stomach. Differential includes esophagitis and neoplasm. Suspect neoplasm as there are several enlarged lymph nodes at the gastrohepatic ligament with the largest measuring 2.4 cm in diameter. 2.? Additional lobulated thickening extending into the fundus of the stomach with mild diffuse mucosal thickening of the stomach. 3.? Recommend upper endoscopy to evaluate the distal esophagus and the stomach. 4.? PET/CT may be helpful to evaluate the abnormal lymph nodes along the gastrohepatic ligament. There are smaller retroperitoneal lymph nodes. 5.? Indeterminate bilateral hilar lymph nodes with the largest measuring 12 mm on the LEFT. General surgery was consulted for potential diagnostic EGD. Patient was seen and evaluated in the emergency department room #6 Review of Systems General: Reports: 10 or more systems reviewed and unremarkable except in HPI and below Medications/Allergies Home Medications Medication Instructions Recorded Confirmed Last Taken Type pen needle, diabetic 32 gauge x #50 ea 05/21/20 01/06/22 Unknown Rx / (Comfort EZ Pen [place]) montelukast 10 mg tablet 10 mg PO DAILY #90 tabs 12/13/20 01/06/22 01/05/22 Rx (Singulair) spironolactone 25 mg tablet 25 mg PO QDAY@0400 #90 tabs 07/28/21 01/06/22 01/05/22 Rx tiotropium bromide 18 mcg capsule 1 cap inhalation QDAY@1400 90 days 08/15/21 01/06/22 01/05/22 Rx with inhalation device (Spiriva #90 inhalations with HandiHaler) potassium chloride 10 mEq 10 meq PO DAILY #90 tabs 08/19/21 01/06/22 01/05/22 Rx tablet,extended release (Klor-Con) fluticasone 250 mcg-salmeterol 50 1 inh inhalation BID #60 ea 09/01/21 01/06/22 01/05/22 Rx mcg/dose blistr powdr for inhalation (Advair Diskus) citalopram 40 mg tablet 40 mg PO QDAY@0400 #90 tabs 09/10/21 01/06/22 01/06/22 Rx furosemide 20 mg tablet (Lasix) 20 mg PO DAILY 30 days #30 tabs 10/15/21 01/06/22 01/05/22 Rx lisinopril 10 mg tablet 10 mg PO DAILY@0400 90 days #90 10/23/21 01/06/22 01/05/22 Rx tabs albuterol sulfate 90 mcg/actuation 2 puff inhalation Q6H PRN 10/30/21 01/06/22 Unknown Rx aerosol inhaler (ProAir HFA) shortness of breath or wheezing #8.5 grams pantoprazole 40 mg tablet,delayed 40 mg PO BID 90 days #180 tabs 11/10/21 01/06/22 01/05/22 Rx release (Protonix) tramadol 37.5 mg-acetaminophen 325 1 tab PO QDAY@0400 PRN pain #30 11/18/21 01/06/22 01/05/22 Rx mg tablet tabs testosterone cypionate 200 mg/mL 300 mg (1.5 mL) IM .EVERY 2 WEEKS 12/08/21 01/06/22 Unknown Rx intramuscular oil 30 days #3 mL gabapentin 300 mg capsule See Rx Instructions .Route 12/24/21 01/06/22 01/06/22 Rx .COMPLEX #120 caps pen needle, diabetic 32 gauge x #100 ea 12/26/21 01/06/22 Unknown Rx 1/4 (BD Ultra-Fine Micro Pen Needle) aripiprazole 2 mg tablet (Abilify) 2 mg PO DAILY 12/30/21 01/06/22 01/06/22 History cholestyramine-aspartame 4 gram 4 g PO BID PRN Diarrhea 12/30/21 01/06/22 Unknown History oral powder (Cholestyramine Light) liraglutide 0.6 mg/0.1 mL (18 mg/3 1.2 mg SUBCUT DAILY 12/30/21 01/06/22 01/05/22 History mL) subcutaneous pen injector ([employer] 2-Peter) fluticasone propionate 50 2 spray intranasal DAILY PRN 01/06/22 01/06/22 Unknown History mcg/actuation nasal Shortness Of Breath spray,suspension (Flonase Allergy Relief) sucralfate 1 gram tablet (Carafate) 1 g PO Q6H PRN Stomach Upset 01/06/22 01/06/22 Unknown History Allergies Allergy/AdvReac Type Severity Reaction Status Date / Time No Known Allergies Allergy Verified 01/06/22 08:34 Current Medications Generic Name Dose Route Start Last Admin Trade Name Freq PRN Reason Stop Dose Admin Potassium Chloride 100 mls @ 25 mls/hr 01/06/22 12:30 01/06/22 13:12 K-Hermes IV 01/06/22 20:29 25 mls/hr Q4H HUSAM Administration PFSH Acute PFSH: Medical History Benign essential HTN COPD (chronic obstructive pulmonary disease) Depression GERD (gastroesophageal reflux disease) Low testosterone EMMANUEL (obstructive sleep apnea) Type 2 diabetes mellitus, without long-term current use of insulin Surgical History History of cholecystectomy Family History Other Alzheimer disease Cancer Hypertension Social History Smoking and tobacco status: current every day smoker cigarettes Packs smoked per day: 1 Alcohol intake: never Vitals/I&O/Wt Last Vital Signs Temp 97.6 F 01/06/22 08:58 Pulse 69 01/06/22 13:00 Resp 18 01/06/22 08:58 BP 99/70 01/06/22 13:00 Pulse Ox 94 01/06/22 13:00 O2 Del Method 01/06/22 13:00 01/05/22 01/06/22 01/06/22 22:59 06:59 14:59 Intake Total 2558.25 / 2558.25 Balance 2558.25 / 2558.25 Weight last 48 hrs Weight 188 lb Physical Exam Const: COMMON NORMALS: no acute distress and patient oriented x3 GENERAL APPEARANCE: cooperative ORIENTATION/CONSCIOUSNESS: Yes awake, Yes oriented to person, Yes oriented to place and Yes oriented to time HENMT: COMMON NORMALS: normocephalic HEAD & SCALP: normocephalic Eye: COMMON NORMALS: Equal, round and reactive pupils present and no scleral icterus PUPIL: Yes Equal, round and reactive pupils present Lymph: LYMPHATIC: no lymphadenopathy noted Chest: COMMONS NORMALS: normal inspection of the chest Resp: COMMON NORMALS: normal respiratory effort and clear to auscultation bilaterally AUSCULTATION: clear to auscultation bilaterally Cardio: COMMON NORMALS: S1 normal heart sound present and S2 normal heart sound present; negative for No murmurs present (Cardio) HEART SOUNDS: S1 normal heart sound present and S2 normal heart sound present GI: COMMON NORMALS: Soft to palpation; negative for No hepatosplenomegaly present INSPECTION: Yes normal to inspection PALPATION: Yes Soft to palpation, No Firmness to palpation present (GI), No Tenderness to palpation present (GI), No Guarding due to palpation present (GI), No Rigid due to palpation and No No hepatosplenomegaly present Neuro: COMMON NORMALS: patient oriented x3 SENSORIUM/ORIENTATION: Yes oriented to person, Yes oriented to place and Yes oriented to time Psych: COMMON NORMALS: mental status grossly normal Skin: COMMON NORMALS: no rashes or lesions noted GENERAL SKIN EXAM: no rashes or lesions noted Data : 01/06/22 09:30 01/06/22 09:30 A&P Assessment and plan (1) Dysphagia: Plan of care; After thorough history and physical examination and reviewing the chart and the CT scan with my personal interpretation, plan to perform a diagnostic esophagogastroduodenoscopy with possible biopsy in the GI lab. Highly concerning for gastro esophageal carcinoma. I discussed with the patient in detail the risk,benefits,alternatives and indications.The risk of aspiration, bleeding, soft tissue injury, perforation of the stomach/esophagus and other potential concomitant complications were explained to the patient in details,aslo the potential need for Thoracic and or Abdominal surgery to repair any complications.The patient understood this well and did agree to proceed. Rationale was carefully and clearly discussed with the patient.Appropriate informed consent have been reviewed and signed All questions have been answered and all concerns have been addressed to patient's satisfaction. IV fluid resuscitation per hospitalist service and will keep n.p.o. after midnight Status: Acute Consult Attestations Medical Necessity Statement: Per admitting service Time Spent in Patient Care: 16 - 35 minutes Coding Level of Care Code Acute Rfp Writer for Chg Fwd Diagnoses Dysphagia R13.10
--- NOTE | 2022-01-06 15:08 | ECG_ITS ---
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 Measurements Intervals [place] Rate: 77 P: 62 TN: 169 QRS: 5 QRSD: 109 T: 60 QT: 409 QTc: 463 Interpretive Statements SINUS RHYTHM Compared to ECG 01/06/2022 11:11:24 T-wave abnormality no longer present Electronically Signed On 01-06-2022 19:00:49 CDT by Neymar Pollard M.D. [email or web address] [email or web address] World ([place]) ITlouis stokes [facility].Thounds/store/OM/[id number]
[2022-01-06] MEDS: heparin 5,000 unit/mL INJ 1 mL 5000 UNIT SUBCUT (15:24)
[2022-01-06] MEDS: pantoprazole 40 mg SDV IVP (15:27)
[2022-01-06] MEDS: sodium chloride 0.9% 1,000 ML 125 ML IV ×2 (15:28→21:58)
[2022-01-06 15:53] LABS: Troponin 5 6HR 17.92 ng/L (0-15)
[2022-01-06 15:55] LABS: Troponin 5 6HR Delta -4.08 ng/L (0-12)
--- NOTE | 2022-01-06 19:02 | PC.NURSE ---
assumed care of patient at this time.
--- NOTE | 2022-01-06 19:14 | PC.NURSE ---
attempted to call report at this time, call was answered and hung up. will reattempt. Francesca BERMEO stated in report that she attempted x 2 during am shift.
--- NOTE | 2022-01-06 19:34 | PC.NURSE ---
attempted report at this time, spoke with Jai, states that nurse taking report, Christi, is in a patient room and will call back.
--- NOTE | 2022-01-06 19:40 | PC.NURSE ---
report called to Christi, accepted to 256-2 med surg.
[2022-01-06 21:51] LABS: Glucose Point of Care 92 mg/dL (70-110)
[2022-01-06] MEDS: nicotine 21 mg Patch 1 PATCH TRANSDERMA (21:57)
[2022-01-06 22:17] LABS: Anion Gap 10.4 (5-19); Blood Urea Nitrogen 12 mg/dL (6-20); Calcium 7.7 mg/dL (8.5-10.5); Carbon Dioxide 31 mmol/L (22-29); Chloride 101 mmol/L (98-107); Glomerular Filtration Rate 68.5 mL/min (90-130); Glucose 71 mg/dL (65-115); Osmolality Calculated 288 mOsm/kg (285-295); Sodium 140 mmol/L (136-145)
[2022-01-06 22:23] LABS: Potassium 2.4 mmol/L (3.5-5.1)
[2022-01-07] VITALS (13 sets, daily range): BP systolic 94–114; BP diastolic 48–72; PULSE 84–93; RESP 11–20; TEMP 36.5–36.8; O2SAT 92–100
[2022-01-07] MEDS: lidocaine 1% 5 ML in potassium chloride premix 100 ML 25 ML IV ×5 (00:23→21:08)
[2022-01-07] MEDS: pantoprazole 40 mg SDV IVP (02:18)
[2022-01-07] MEDS: heparin 5,000 unit/mL INJ 1 mL 5000 UNIT SUBCUT (02:19)
[2022-01-07] MEDS: acetaminophen 325 mg Tablet 650 MG PO (02:22)
[2022-01-07] MEDS: citalopram 20 mg Tablet 40 MG PO (02:25)
[2022-01-07 05:52] LABS: Basophils % 0.4 %; Eosinophils # 0.1 10^3/uL (0.0-0.8); Eosinophils % 1.2 %; Hematocrit 43.1 % (42.0-52.0); Hemoglobin 14.8 g/dL (11.7-16.6); Lymphocytes # 1.9 10^3/uL (0.8-4.8); Lymphocytes % 25.1 %; Mean Corpuscular HGB Conc 34.3 g/dL (30.0-36.0); Mean Corpuscular Hemoglobin 31.5 pg (28.0-34.0); Mean Corpuscular Volume 91.7 fl (80-94); Mean Platelet Volume 10.4 fL (7.4-10.4); Monocytes # 0.5 10^3/uL (0.2-0.9); Monocytes % 6.1 %; Neutrophils # 5.17 10^3/uL (1.8-7.7); Neutrophils % 66.9 %; Nucleated Red Blood Cells % 0 %; Platelet Count 266 10^3/cmm (130-400); Red Cell Distribution Width 13.3 % (12.1-15.1); White Blood Count 7.7 10^3/uL (4.0-10.0)
[2022-01-07 06:13] LABS: Alanine Aminotransferase 8 U/L (0-41); Albumin Level 2.5 g/dL (3.5-5.2); Alkaline Phosphatase 69 IU/L (40-130); Anion Gap 8.5 (5-19); Aspartate Amino Transferase 11 U/L (0-40); Blood Urea Nitrogen 10 mg/dL (6-20); Calcium 7.8 mg/dL (8.5-10.5); Carbon Dioxide 31 mmol/L (22-29); Chloride 102 mmol/L (98-107); Globulin 2.9 g/dL (1.3-4.6); Glomerular Filtration Rate 98.9 mL/min (90-130); Glucose 68 mg/dL (65-115); Magnesium 1.7 mg/dL (1.7-2.3); Osmolality Calculated 285 mOsm/kg (285-295); Sodium 139 mmol/L (136-145); Total Bilirubin 0.7 mg/dL (0.15-1.2); Total Protein 5.4 g/dL (6.6-8.7)
[2022-01-07 06:21] LABS: Glucose Point of Care 71 mg/dL (70-110)
[2022-01-07 06:28] LABS: Potassium 2.5 mmol/L (3.5-5.1)
[2022-01-07 06:31] LABS: Glucose Point of Care 69 mg/dL (70-110); Glucose Point of Care 71 mg/dL (70-110)
[2022-01-07] MEDS: dextrose 50% syringe 50 mL 25 ML IVP (06:44)
[2022-01-07 07:10] LABS: Glucose Point of Care 105 mg/dL (70-110)
[2022-01-07] MEDS: budesonide 0.5 mg/2 mL Neb INHALATION (09:07)
--- NOTE | 2022-01-07 09:23 | P.PN_ITS ---
Subjective Subjective: Ovi reports he is doing okay. He is able to keep a small amount of ice water down. He denies feeling nauseous. He is ready for his EGD. Medications: Reviewed: Yes Vitals/I&O/Wt Last Vital Signs Temp 97.9 F 01/07/22 07:16 Pulse 89 01/07/22 08:00 Resp 18 01/07/22 08:00 BP 94/59 01/07/22 07:16 Pulse Ox 96 01/07/22 08:00 O2 Del Method 01/07/22 08:00 01/06/22 01/07/22 01/07/22 22:59 06:59 14:59 Intake Total 904.583 / 3462.833 105 / 3567.833 Balance 904.583 / 3462.833 105 / 3567.833 Weight last 48 hrs Weight 87.362 kg Weight 85.275 kg Physical Exam Narrative: General exam is no apparent distress Neck is supple no lymphadenopathy thyromegaly Cardiovascular regular rate and rhythm without murmur Lungs clear no wheezing or crackles Abdomen is soft nontender positive bowel sounds Extremities no cyanosis clubbing or edema Skin no rash Data : 01/07/22 05:11 01/07/22 05:11 A&P Assessment and plan (1) Dysphagia: Patient's history is very concerning for esophageal obstruction, possible malignancy CT scan seems to confirm this EGD plan today for Dr. Boles Continue hydration currently Discussed in detail with patient Status: Acute (2) Weight loss, abnormal: See above Status: Acute (3) Hyponatremia: Likely secondary to renal dysfunction as well as vomiting With hydration this is now normal Status: Acute (4) Hypokalemia: Supplementation initiated in the emergency department Potassium is still low and ongoing supplementation occurs Magnesium was checked and normal Repeat laboratory later tonight. Status: Acute (5) Acute kidney injury: Significant acute kidney injury on presentation No evidence of obstruction on CT scan Avoid renal toxic medication With hydration this appears to have resolved Urinalysis was checked and normal Repeat renal function tomorrow Status: Acute (6) Type 2 diabetes mellitus, without long-term current use of insulin: Sliding scale insulin Status: Chronic (7) COPD (chronic obstructive pulmonary disease): No evidence of exacerbation DuoNeb every 6 hours as needed Budesonide twice daily Status: Acute Qualifiers: COPD type: emphysema Emphysema type: panlobular Qualified Code(s): J43.1 - Panlobular emphysema Plan Other medical problems as outlined in past medical history Full code Heparin for DVT prophylaxis Attestations Medical Necessity Statement*: Needs continued hospitalization for evaluation of dysphagia with inability to sustain himself by nutrition and hydration. EGD planned today. Coding Level of Care Code Acute Security Patrol Officer for Chg Fwd Diagnoses Dysphagia R13.10 Weight loss, abnormal R63.4 Hyponatremia E87.1 Hypokalemia E87.6 Acute kidney injury N17.9 Type 2 diabetes mellitus, without long-term current use of insulin E11.9 COPD (chronic obstructive pulmonary disease) J43.1 COPD type: emphysema Emphysema type: panlobular
[2022-01-07 11:03] LABS: Glucose Point of Care 80 mg/dL (70-110)
[2022-01-07 14:38] LABS: Potassium 2.9 mmol/L (3.5-5.1)
--- NOTE | 2022-01-07 15:24 | ANES.PREANE2 ---
Pre-Anesthetic Assessment Height/Weight: Height 1.78 m Weight 87.362 kg Temp Pulse Resp BP Pulse Ox O2 Del Method 98.2 F 92 17 94/59 95 01/07/22 11:15 01/07/22 15:08 01/07/22 11:15 01/07/22 11:15 01/07/22 11:15 01/07/22 11:15 Operation Date: 01/07/22 12:00 Proposed Procedures p EGD(Not Applicable) - Alex Boles MD Familial anesthetic complications: None Was Beta Lyn taken within 24 hours: N/A Was Clonidine taken within 24 hours: N/A Last intake: > 8hrs Social No alcohol and No tobacco Exam alert, oriented x 3, clear to auscultation bilaterally and regular rate & rhythm Airway Mallampati: Class III Dentition: other (multiple missing) Pulmonary Chronic Obstructive Pulmonary Disease CV/HEM Hypertension Chronic Renal Insufficiency GI Gastroesophageal Reflux Disease esophageal mass Metabolic Diabetes Mellitus hypokalemia Anesthetic Plan ASA status: 4 Anesthesia: MAC Risk of > 500 ml blood loss (7ml/kg in children): No Medications/Allergies Home Medications Medication Instructions Recorded Confirmed Last Taken Type pen needle, diabetic 32 gauge x #50 ea 05/21/20 01/06/22 Unknown Rx / (Comfort EZ Pen [place]) montelukast 10 mg tablet 10 mg PO DAILY #90 tabs 12/13/20 01/06/22 01/05/22 Rx (Singulair) spironolactone 25 mg tablet 25 mg PO QDAY@0400 #90 tabs 07/28/21 01/06/22 01/05/22 Rx tiotropium bromide 18 mcg capsule 1 cap inhalation QDAY@1400 90 days 08/15/21 01/06/22 01/05/22 Rx with inhalation device (Spiriva #90 inhalations with HandiHaler) potassium chloride 10 mEq 10 meq PO DAILY #90 tabs 08/19/21 01/06/22 01/05/22 Rx tablet,extended release (Klor-Con) fluticasone 250 mcg-salmeterol 50 1 inh inhalation BID #60 ea 09/01/21 01/06/22 01/05/22 Rx mcg/dose blistr powdr for inhalation (Advair Diskus) citalopram 40 mg tablet 40 mg PO QDAY@0400 #90 tabs 09/10/21 01/06/22 01/06/22 Rx furosemide 20 mg tablet (Lasix) 20 mg PO DAILY 30 days #30 tabs 10/15/21 01/06/22 01/05/22 Rx lisinopril 10 mg tablet 10 mg PO DAILY@0400 90 days #90 10/23/21 01/06/22 01/05/22 Rx tabs albuterol sulfate 90 mcg/actuation 2 puff inhalation Q6H PRN 10/30/21 01/06/22 Unknown Rx aerosol inhaler (ProAir HFA) shortness of breath or wheezing #8.5 grams pantoprazole 40 mg tablet,delayed 40 mg PO BID 90 days #180 tabs 11/10/21 01/06/22 01/05/22 Rx release (Protonix) tramadol 37.5 mg-acetaminophen 325 1 tab PO QDAY@0400 PRN pain #30 11/18/21 01/06/22 01/05/22 Rx mg tablet tabs testosterone cypionate 200 mg/mL 300 mg (1.5 mL) IM .EVERY 2 WEEKS 12/08/21 01/06/22 Unknown Rx intramuscular oil 30 days #3 mL gabapentin 300 mg capsule See Rx Instructions .Route 12/24/21 01/06/22 01/06/22 Rx .COMPLEX #120 caps pen needle, diabetic 32 gauge x #100 ea 12/26/21 01/06/22 Unknown Rx 1/4 (BD Ultra-Fine Micro Pen Needle) aripiprazole 2 mg tablet (Abilify) 2 mg PO DAILY 12/30/21 01/06/22 01/06/22 History cholestyramine-aspartame 4 gram 4 g PO BID PRN Diarrhea 12/30/21 01/06/22 Unknown History oral powder (Cholestyramine Light) liraglutide 0.6 mg/0.1 mL (18 mg/3 1.2 mg SUBCUT DAILY 12/30/21 01/06/22 01/05/22 History mL) subcutaneous pen injector ([employer] 2-Peter) fluticasone propionate 50 2 spray intranasal DAILY PRN 01/06/22 01/06/22 Unknown History mcg/actuation nasal Shortness Of Breath spray,suspension (Flonase Allergy Relief) sucralfate 1 gram tablet (Carafate) 1 g PO Q6H PRN Stomach Upset 01/06/22 01/06/22 Unknown History Allergies Allergy/AdvReac Type Severity Reaction Status Date / Time No Known Allergies Allergy Verified 01/06/22 08:34 Current Medications Generic Name Dose Route Start Last Admin Trade Name Freq PRN Reason Stop Dose Admin Acetaminophen 650 mg 01/06/22 13:34 01/07/22 02:22 Acetaminophen 325 Mg Tablet PO 650 mg Q6H PRN Administration Mild/Mod Pain Or Temp >/= 101 Budesonide 0.5 mg 01/06/22 21:14 01/07/22 09:07 Budesonide 0.5 Mg/2 Ml Neb INHALATION 0.5 mg BID.RESPIRATORY HUSAM Administration Citalopram Hydrobromide 40 mg 01/07/22 04:00 01/07/22 02:25 Citalopram 20 Mg Tablet PO 40 mg DAILY@0400 HUSAM Administration Dextrose 25 ml 01/06/22 21:14 01/07/22 06:44 Dextrose 50% Syringe 50 Ml IVP 25 ml ONCE PRN Administration hypoglycemia protocol Protocol Gabapentin 300 mg 01/07/22 01:00 01/07/22 00:41 Gabapentin 300 Mg Capsule PO Not Given TID@0100,1200,2100 HUSAM Heparin Sodium (Porcine) 5,000 unit 01/06/22 14:30 01/07/22 02:19 Heparin 5,000 Unit/Ml Inj 1 Ml SUBCUT 5,000 unit Q12H HUSAM Administration Sodium Chloride 1,000 mls @ 125 mls/hr 01/06/22 13:45 01/07/22 08:53 Sodium Chloride 0.9% IV Not Given .Q8H HUSAM Insulin Human Lispro 0 unit 01/06/22 21:14 01/07/22 11:20 Insulin Lispro 100 Unit/1 Ml SUBCUT Not Given WM&BEDTIME HUSAM Protocol Nicotine 1 patch 01/06/22 21:14 01/06/22 21:57 Nicotine 21 Mg Patch TRANSDERMA 1 patch Q24H HUSAM Administration Pantoprazole Sodium 40 mg 01/06/22 14:30 01/07/22 02:18 Pantoprazole 40 Mg Sdv IVP 40 mg Q12H HUSAM Administration PFSH Anesthesia Medical History Benign essential HTN COPD (chronic obstructive pulmonary disease) Depression GERD (gastroesophageal reflux disease) Low testosterone EMMANUEL (obstructive sleep apnea) Type 2 diabetes mellitus, without long-term current use of insulin Surgical History History of cholecystectomy Family History Other Alzheimer disease Cancer Hypertension Social History Smoking and tobacco status: current every day smoker cigarettes Packs smoked per day: 1 Alcohol intake: never Data Anesthesia : 01/07/22 05:11 01/07/22 13:00 Short CBC 01/06/22 01/07/22 Range/Units 09:30 05:11 WBC 12.3 H 7.7 (4.0-10.0) 10^3/uL Hgb 17.6 H 14.8 (11.7-16.6) g/dL Hct 48.8 43.1 (42.0-52.0) % MCV 88.2 91.7 (80-94) fl Plt Count 320 266 (130-400) 10^3/cmm Neut % (Auto) 73.0 66.9 % Neut # (Auto) 8.95 H 5.17 (1.8-7.7) 10^3/uL BMP 01/06/22 01/06/22 01/07/22 09:30 21:40 05:11 Sodium 130 L 140 139 Potassium 2.1 L* 2.4 L* 2.5 L* Chloride 84 L 101 102 Carbon Dioxide 31 H 31 H 31 H BUN 19 12 10 Creatinine 1.8 H 1.1 0.8 Glucose 82 71 68 Calcium 8.5 7.7 L 7.8 L 01/07/22 13:00 Sodium Potassium 2.9 L Chloride Carbon Dioxide BUN Creatinine Glucose Calcium Cardiac Enzymes 01/06/22 01/06/22 01/06/22 Range/Units 09:30 11:16 15:10 Troponin T Baseline 22 H (0-15) ng/L Troponin T 120 Minute 17.80 H (0-15) ng/L Delta Troponin T -4.20 L (0-10) ABS# Troponin T Hi Sens 6Hr 17.92 H (0-15) ng/L Troponin T Hi Sens 6Hr Delta -4.08 L (0-12) ng/L Liver Function 01/06/22 01/07/22 Range/Units 09:30 05:11 Total Bilirubin 0.6 0.7 (0.15-1.2) mg/dL AST 14 11 (0-40) U/L ALT 10 8 (0-41) U/L Alkaline Phosphatase 87 69 (40-130) IU/L Albumin 2.9 L 2.5 L (3.5-5.2) g/dL Urine 01/06/22 Range/Units 11:27 Urine Color Yellow (Yellow) Urine Appearance Clear (CLEAR) Urine pH 5 (5-7) Ur Specific [place] 1.015 (1.005-1.030) Urine Protein Neg (Negative) Urine Glucose (UA) Norm (Normal) Urine Ketones Negative (Negative) Urine Nitrate Negative (Negative) Urine Bilirubin Neg (Negative) Ur Leukocyte Esterase Negative (Negative) ABG 01/06/22 09:15 Specimen Type Arterial Sample Site Brachial, right ABG pH 7.55 H ABG pCO2 36.6 ABG pO2 69.9 L ABG HCO3 32.3 H ABG O2 Saturation 97.8 ABG Base Excess 9.5 H A-a O2 Gradient 4.5 L O2 Delivery Device Room air FiO2 21.0 Cardiac Studies: No Data to Display
--- NOTE | 2022-01-07 15:27 | PC.NURSE ---
Spoke to GI laboratory chief. Discussed potassium level. Anesthesia orders to hold 1500 K rider until after procedure. Patient to GI lab with staff.
--- NOTE | 2022-01-07 15:50 | PM.PN ---
Subjective Subjective: The same,corrected delctrolytes Medications: Reviewed: Yes Vitals/I&O/Wt Last Vital Signs Temp 98.2 F 01/07/22 15:38 Pulse 92 01/07/22 15:38 Resp 20 H 01/07/22 15:38 BP 113/72 01/07/22 15:38 Pulse Ox 100 01/07/22 15:38 O2 Del Method 01/07/22 15:38 01/07/22 01/07/22 01/07/22 06:59 14:59 22:59 Intake Total 105 / 3567.833 Balance 105 / 3567.833 Weight last 48 hrs Weight 192 lb 9.6 oz Weight 188 lb Physical Exam Narrative: General exam is no apparent distress Abdomen is soft nontender positive bowel sounds Extremities no cyanosis clubbing or edema Skin no rash Data : 01/07/22 05:11 01/07/22 13:00 A&P Assessment and plan (1) Dysphagia: EGD Status: Acute Plan EGD with possible biopsy Attestations Medical Necessity Statement*: per admitting service Coding Level of Care Code Acute Decal Applier for Chg Fwd Diagnoses Dysphagia R13.10
[2022-01-07 17:09] LABS: Glucose Point of Care 67 mg/dL (70-110)
--- NOTE | 2022-01-07 17:56 | ANE.PACU2 ---
Inpatient post-anesthesia follow up: Airway intact: Yes Vital signs: Temperature 97.7 F Pulse Rate 90 Respiratory Rate 18 Blood Pressure 114/63 Pulse Oximetry 92 Oxygen Delivery Me thod Room Air Oxygen Flow Rate Fraction of Inspir ed Oxygen Hydration adequate: Yes Nausea and vomiting: No Pain level: 1 Mental status: Baseline
[2022-01-07] MEDS: nicotine 21 mg Patch 1 PATCH TRANSDERMA (21:07)
[2022-01-07] MEDS: gabapentin 300 mg Capsule PO (21:07)
[2022-01-07] MEDS: sodium chloride 0.9% 1,000 ML 125 ML IV (21:09)
[2022-01-07 22:52] LABS: Glucose Point of Care 65 mg/dL (70-110)
[2022-01-08] VITALS (9 sets, daily range): BP systolic 98–110; BP diastolic 50–71; PULSE 78–100; RESP 12–18; TEMP 36.4–36.7; O2SAT 94–98
[2022-01-08] MEDS: citalopram 20 mg Tablet 40 MG PO (00:10)
[2022-01-08] MEDS: gabapentin 300 mg Capsule PO ×2 (00:10→12:13)
[2022-01-08] MEDS: pantoprazole 40 mg SDV IVP ×2 (00:11→14:11)
[2022-01-08 00:12] LABS: Glucose Point of Care 63 mg/dL (70-110)
[2022-01-08 02:05] LABS: Anion Gap 13.9 (5-19); Blood Urea Nitrogen 9 mg/dL (6-20); Calcium 7.8 mg/dL (8.5-10.5); Carbon Dioxide 26 mmol/L (22-29); Chloride 108 mmol/L (98-107); Glomerular Filtration Rate 115.4 mL/min (90-130); Glucose 61 mg/dL (65-115); Magnesium 1.7 mg/dL (1.7-2.3); Osmolality Calculated 297 mOsm/kg (285-295); Sodium 145 mmol/L (136-145)
[2022-01-08 02:16] LABS: Potassium 2.9 mmol/L (3.5-5.1)
--- NOTE | 2022-01-08 03:19 | PC.NURSE ---
Dr. Olson notified of patient asking for Tramadol that he takes at home.
[2022-01-08] MEDS: acetaminophen 325 mg Tablet 650 MG PO (03:42)
[2022-01-08] MEDS: TRAMadol 50 mg Tablet 37.5 MG PO (03:59)
[2022-01-08 04:03] LABS: Potassium 3.1 mmol/L (3.5-5.1)
--- NOTE | 2022-01-08 04:37 | PC.NURSE ---
Lab edelmira blood on patient while Krider was still running. Potassium came back at 2.9. Lab asked to come back and re-draw after K-rider was done. Result was 3.1 Dr. Olson notified.
[2022-01-08] MEDS: lidocaine 1% 5 ML in potassium chloride premix 100 ML 25 ML IV (05:41)
[2022-01-08 06:12] LABS: Glucose Point of Care 60 mg/dL (70-110)
[2022-01-08] MEDS: ALPRAZolam 0.5 mg Tablet PO (08:15)
[2022-01-08] MEDS: budesonide 0.5 mg/2 mL Neb INHALATION (08:49)
[2022-01-08] MEDS: montelukast sodium 10 mg Tablet PO (09:24)
[2022-01-08] MEDS: ARIPiprazole 2 mg Tablet PO (09:31)
--- NOTE | 2022-01-08 09:47 | P.PN_ITS ---
Subjective Subjective: Oiv feels better than he did when he came in. No chest discomfort. He has been able to tolerate some liquids without regurgitation. EGD and biopsy was performed yesterday without complication. Medications: Reviewed: Yes Vitals/I&O/Wt Last Vital Signs Temp 98.0 F 01/08/22 08:00 Pulse 100 01/08/22 08:55 Resp 18 01/08/22 08:00 BP 107/63 01/08/22 08:00 Pulse Ox 96 01/08/22 08:00 O2 Del Method 01/08/22 08:00 01/07/22 01/08/22 01/08/22 22:59 06:59 14:59 Intake Total 301.667 / 698.100 0165 / 1511.667 240 / 240 Balance 301.667 / 283.502 4384 / 1511.667 240 / 240 Weight last 48 hrs Weight 87.362 kg Physical Exam Narrative: General exam is no apparent distress Neck is supple no lymphadenopathy thyromegaly Cardiovascular regular rate and rhythm without murmur Lungs clear no wheezing or crackles Abdomen is soft nontender positive bowel sounds Extremities no cyanosis clubbing or edema Skin no rash Data : 01/07/22 05:11 01/08/22 02:32 A&P Assessment and plan (1) Dysphagia: Patient's history is very concerning for esophageal obstruction, possible malignancy CT scan seems to confirm this Yesterday is consistent with this. Awaiting biopsies. Continue hydration May need J-tube. Surgery to discuss with the patient. Status: Acute (2) Weight loss, abnormal: See above Status: Acute (3) Hyponatremia: Likely secondary to renal dysfunction as well as vomiting Resolved with hydration Status: Acute (4) Hypokalemia: Supplementation initiated in the emergency department Repeat potassium tomorrow morning Magnesium was checked and normal And did require IV supplementation Status: Acute (5) Acute kidney injury: Significant acute kidney injury on presentation No evidence of obstruction on CT scan Avoid renal toxic medication Hydration Urinalysis was checked and normal Function has returned to normal Status: Acute (6) Type 2 diabetes mellitus, without long-term current use of insulin: Sliding scale insulin Does not appear that he will need any insulin products when he goes home. Status: Chronic (7) COPD (chronic obstructive pulmonary disease): No evidence of exacerbation DuoNeb every 6 hours as needed Budesonide twice daily Status: Acute Qualifiers: COPD type: emphysema Emphysema type: panlobular Qualified Code(s): J43.1 - Panlobular emphysema Plan Other medical problems as outlined in past medical history Full code Heparin for DVT prophylaxis Attestations Medical Necessity Statement*: Need hospitalization for evaluation for definitive way to give nutrition and hydration prior to discharge. 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
--- NOTE | 2022-01-08 10:48 | ANES.PREANE2 ---
Pre-Anesthetic Assessment Height/Weight: Height 1.78 m Weight 87.362 kg Temp Pulse Resp BP Pulse Ox O2 Del Method 98.0 F 100 18 107/63 96 01/08/22 08:00 01/08/22 08:55 01/08/22 08:00 01/08/22 08:00 01/08/22 08:00 01/08/22 08:00 Preop Diagnosis: Dysphagia Operation Date: 01/07/22 12:00 Proposed Procedures p EGD(Not Applicable) - Alex Boles MD Operation Date: 01/08/22 16:00 Proposed Procedures p Laparoscopic PEG Tube Placement(Not Applicable) - Alex Boles MD Pulmonary Chronic Obstructive Pulmonary Disease and Sleep Apnea CV/HEM Hypertension EKG 01/06/22 Interpretive Statements SINUS RHYTHM Compared to ECG 01/06/2022 11:11:24 T-wave abnormality no longer present Electronically Signed On 01-06-2022 19:00:49 CDT by Neymar Pollard M.D. [id number] Chronic Renal Insufficiency GI Gastroesophageal Reflux Disease Esophageal mass Dysphagia K 3.1 Metabolic Diabetes Mellitus Neuropsych Depression Anesthetic Plan ASA status: 3 Medications/Allergies Home Medications Medication Instructions Recorded Confirmed Last Taken Type pen needle, diabetic 32 gauge x #50 ea 05/21/20 01/06/22 Unknown Rx 06/03 (Comfort EZ Pen [place]) montelukast 10 mg tablet 10 mg PO DAILY #90 tabs 12/13/20 01/06/22 01/05/22 Rx (Singulair) spironolactone 25 mg tablet 25 mg PO QDAY@0400 #90 tabs 07/28/21 01/06/22 01/05/22 Rx tiotropium bromide 18 mcg capsule 1 cap inhalation QDAY@1400 90 days 08/15/21 01/06/22 01/05/22 Rx with inhalation device (Spiriva #90 inhalations with HandiHaler) potassium chloride 10 mEq 10 meq PO DAILY #90 tabs 08/19/21 01/06/22 01/05/22 Rx tablet,extended release (Klor-Con) fluticasone 250 mcg-salmeterol 50 1 inh inhalation BID #60 ea 09/01/21 01/06/22 01/05/22 Rx mcg/dose blistr powdr for inhalation (Advair Diskus) citalopram 40 mg tablet 40 mg PO QDAY@0400 #90 tabs 09/10/21 01/06/22 01/06/22 Rx furosemide 20 mg tablet (Lasix) 20 mg PO DAILY 30 days #30 tabs 10/15/21 01/06/22 01/05/22 Rx lisinopril 10 mg tablet 10 mg PO DAILY@0400 90 days #90 10/23/21 01/06/22 01/05/22 Rx tabs albuterol sulfate 90 mcg/actuation 2 puff inhalation Q6H PRN 10/30/21 01/06/22 Unknown Rx aerosol inhaler (ProAir HFA) shortness of breath or wheezing #8.5 grams pantoprazole 40 mg tablet,delayed 40 mg PO BID 90 days #180 tabs 11/10/21 01/06/22 01/05/22 Rx release (Protonix) tramadol 37.5 mg-acetaminophen 325 1 tab PO QDAY@0400 PRN pain #30 11/18/21 01/06/22 01/05/22 Rx mg tablet tabs testosterone cypionate 200 mg/mL 300 mg (1.5 mL) IM .EVERY 2 WEEKS 12/08/21 01/06/22 Unknown Rx intramuscular oil 30 days #3 mL gabapentin 300 mg capsule See Rx Instructions .Route 12/24/21 01/06/22 01/06/22 Rx .COMPLEX #120 caps pen needle, diabetic 32 gauge x #100 ea 12/26/21 01/06/22 Unknown Rx 1/4 (BD Ultra-Fine Micro Pen Needle) aripiprazole 2 mg tablet (Abilify) 2 mg PO DAILY 12/30/21 01/06/22 01/06/22 History cholestyramine-aspartame 4 gram 4 g PO BID PRN Diarrhea 12/30/21 01/06/22 Unknown History oral powder (Cholestyramine Light) liraglutide 0.6 mg/0.1 mL (18 mg/3 1.2 mg SUBCUT DAILY 12/30/21 01/06/22 01/05/22 History mL) subcutaneous pen injector ([employer] 2-Peter) fluticasone propionate 50 2 spray intranasal DAILY PRN 01/06/22 01/06/22 Unknown History mcg/actuation nasal Shortness Of Breath spray,suspension (Flonase Allergy Relief) sucralfate 1 gram tablet (Carafate) 1 g PO Q6H PRN Stomach Upset 01/06/22 01/06/22 Unknown History Allergies Allergy/AdvReac Type Severity Reaction Status Date / Time No Known Allergies Allergy Verified 01/06/22 08:34 Current Medications Generic Name Dose Route Start Last Admin Trade Name Freq PRN Reason Stop Dose Admin Acetaminophen 650 mg 01/06/22 13:34 01/08/22 03:42 Acetaminophen 325 Mg Tablet PO 650 mg Q6H PRN Administration Mild/Mod Pain Or Temp >/= 101 Aripiprazole 2 mg 01/07/22 09:00 01/08/22 09:31 Aripiprazole 2 Mg Tablet PO 2 mg DAILY HUSAM Administration Budesonide 0.5 mg 01/06/22 21:14 01/08/22 08:49 Budesonide 0.5 Mg/2 Ml Neb INHALATION 0.5 mg BID.RESPIRATORY HUSAM Administration Citalopram Hydrobromide 40 mg 01/07/22 04:00 01/08/22 00:10 Citalopram 20 Mg Tablet PO 40 mg DAILY@0400 HUSAM Administration Dextrose 25 ml 01/06/22 21:14 01/07/22 06:44 Dextrose 50% Syringe 50 Ml IVP 25 ml ONCE PRN Administration hypoglycemia protocol Protocol Gabapentin 300 mg 01/07/22 01:00 01/08/22 00:10 Gabapentin 300 Mg Capsule PO 300 mg TID@0100,1200,2100 HUSAM Administration Sodium Chloride 1,000 mls @ 100 mls/hr 01/06/22 13:45 01/08/22 05:09 Sodium Chloride 0.9% IV Infused .Q10H HUSAM Infusion Insulin Human Lispro 0 unit 01/06/22 21:14 01/08/22 00:20 Insulin Lispro 100 Unit/1 Ml SUBCUT Not Given WM&BEDTIME HUSAM Protocol Montelukast Sodium 10 mg 01/07/22 09:00 01/08/22 09:24 Montelukast Sodium 10 Mg Tablet PO 10 mg DAILY HUSAM Administration Nicotine 1 patch 01/06/22 21:14 01/07/22 21:07 Nicotine 21 Mg Patch TRANSDERMA 1 patch Q24H HUSAM Administration Pantoprazole Sodium 40 mg 01/06/22 14:30 01/08/22 00:11 Pantoprazole 40 Mg Sdv IVP 40 mg Q12H HUSAM Administration Tramadol HCl 37.5 mg 01/08/22 04:00 01/08/22 03:59 Tramadol 50 Mg Tablet PO 37.5 mg DAILY@0400 HUSAM Administration PFSH Anesthesia Medical History Benign essential HTN COPD (chronic obstructive pulmonary disease) Depression GERD (gastroesophageal reflux disease) Low testosterone EMMANUEL (obstructive sleep apnea) Type 2 diabetes mellitus, without long-term current use of insulin Surgical History History of cholecystectomy Family History Other Alzheimer disease Cancer Hypertension Social History Smoking and tobacco status: current every day smoker cigarettes Packs smoked per day: 1 Alcohol intake: never Data Anesthesia : 01/07/22 05:11 01/08/22 02:32 Short CBC 01/07/22 Range/Units 05:11 WBC 7.7 (4.0-10.0) 10^3/uL Hgb 14.8 (11.7-16.6) g/dL Hct 43.1 (42.0-52.0) % MCV 91.7 (80-94) fl Plt Count 266 (130-400) 10^3/cmm Neut % (Auto) 66.9 % Neut # (Auto) 5.17 (1.8-7.7) 10^3/uL BMP 01/06/22 01/07/22 01/07/22 21:40 05:11 13:00 Sodium 140 139 Potassium 2.4 L* 2.5 L* 2.9 L Chloride 101 102 Carbon Dioxide 31 H 31 H BUN 12 10 Creatinine 1.1 0.8 Glucose 71 68 Calcium 7.7 L 7.8 L 01/08/22 01/08/22 01:20 02:32 Sodium 145 Potassium 2.9 L 3.1 L Chloride 108 H Carbon Dioxide 26 BUN 9 Creatinine 0.7 Glucose 61 L Calcium 7.8 L Cardiac Enzymes 01/06/22 01/06/22 Range/Units 11:16 15:10 Troponin T 120 Minute 17.80 H (0-15) ng/L Delta Troponin T -4.20 L (0-10) ABS# Troponin T Hi Sens 6Hr 17.92 H (0-15) ng/L Troponin T Hi Sens 6Hr Delta -4.08 L (0-12) ng/L Liver Function 01/07/22 Range/Units 05:11 Total Bilirubin 0.7 (0.15-1.2) mg/dL AST 11 (0-40) U/L ALT 8 (0-41) U/L Alkaline Phosphatase 69 (40-130) IU/L Albumin 2.5 L (3.5-5.2) g/dL Urine 01/06/22 Range/Units 11:27 Urine Color Yellow (Yellow) Urine Appearance Clear (CLEAR) Urine pH 5 (5-7) Ur Specific [place] 1.015 (1.005-1.030) Urine Protein Neg (Negative) Urine Glucose (UA) Norm (Normal) Urine Ketones Negative (Negative) Urine Nitrate Negative (Negative) Urine Bilirubin Neg (Negative) Ur Leukocyte Esterase Negative (Negative) Cardiac Studies: No Data to Display
[2022-01-08 11:13] LABS: Glucose Point of Care 104 mg/dL (70-110)
--- NOTE | 2022-01-08 11:58 | ANES.PREANE2 ---
Pre-Anesthetic Assessment Height/Weight: Height 1.78 m Weight 87.362 kg Temp Pulse Resp BP Pulse Ox O2 Del Method 98.0 F 82 16 103/67 94 01/08/22 11:54 01/08/22 11:54 01/08/22 11:54 01/08/22 11:54 01/08/22 11:54 01/08/22 11:54 Preop Diagnosis: Dysphagia Operation Date: 01/07/22 12:00 Proposed Procedures p EGD(Not Applicable) - Alex Boles MD Operation Date: 01/08/22 16:00 Proposed Procedures p Laparoscopic PEG Tube Placement(Not Applicable) - Alex Boles MD Familial anesthetic complications: none Was Beta Lyn taken within 24 hours: N/A Was Clonidine taken within 24 hours: N/A Social No alcohol and No tobacco Exam alert, oriented x 3, clear to auscultation bilaterally and regular rate & rhythm Airway Submandibular: within normal limits Cervical ROM: within normal limits Mallampati: Class II Dentition: chipped Comments: Comments: Many missing upper and lower incisors, molars Very poor dentition Pulmonary Chronic Obstructive Pulmonary Disease and Sleep Apnea CV/HEM Hypertension METS > 4 Able to ascend 3 flights of stairs, chop wood w/o CP EKG 01/06/22 Interpretive Statements SINUS RHYTHM Compared to ECG 01/06/2022 11:11:24 T-wave abnormality no longer present Electronically Signed On 01-06-2022 19:00:49 CDT by Neymar Pollard M.D. [id number] Chronic Renal Insufficiency Hepatic None reported GI Gastroesophageal Reflux Disease Esophageal mass Dysphagia K 3.1 Metabolic Diabetes Mellitus [facility] None reported Neuropsych Depression Anesthetic Plan ASA status: 3 Anesthesia: Anesthesia Evaluation and General Other: We discussed risk and benefits of general anesthesia including PONV, sore throat (sometimes severe), corneal abrasion, positioning and peripheral nerve injuries, life threatening allergic reaction, post operative ICU admission requiring prolonged intubation, aspiration, stroke, heart attack, , and rare incidences of recall. Patient consents to proceed with general anesthesia. Plan GETA, RSI Risk of > 500 ml blood loss (7ml/kg in children): No Medications/Allergies Home Medications Medication Instructions Recorded Confirmed Last Taken Type pen needle, diabetic 32 gauge x #50 ea 05/21/20 01/06/22 Unknown Rx 1/4 (Comfort EZ Pen [place]) montelukast 10 mg tablet 10 mg PO DAILY #90 tabs 12/13/20 01/06/22 01/05/22 Rx (Singulair) spironolactone 25 mg tablet 25 mg PO QDAY@0400 #90 tabs 07/28/21 01/06/22 01/05/22 Rx tiotropium bromide 18 mcg capsule 1 cap inhalation QDAY@1400 90 days 08/15/21 01/06/22 01/05/22 Rx with inhalation device (Spiriva #90 inhalations with HandiHaler) potassium chloride 10 mEq 10 meq PO DAILY #90 tabs 08/19/21 01/06/22 01/05/22 Rx tablet,extended release (Klor-Con) fluticasone 250 mcg-salmeterol 50 1 inh inhalation BID #60 ea 09/01/21 01/06/22 01/05/22 Rx mcg/dose blistr powdr for inhalation (Advair Diskus) citalopram 40 mg tablet 40 mg PO QDAY@0400 #90 tabs 09/10/21 01/06/22 01/06/22 Rx furosemide 20 mg tablet (Lasix) 20 mg PO DAILY 30 days #30 tabs 10/15/21 01/06/22 01/05/22 Rx lisinopril 10 mg tablet 10 mg PO DAILY@0400 90 days #90 10/23/21 01/06/22 01/05/22 Rx tabs albuterol sulfate 90 mcg/actuation 2 puff inhalation Q6H PRN 10/30/21 01/06/22 Unknown Rx aerosol inhaler (ProAir HFA) shortness of breath or wheezing #8.5 grams pantoprazole 40 mg tablet,delayed 40 mg PO BID 90 days #180 tabs 11/10/21 01/06/22 01/05/22 Rx release (Protonix) tramadol 37.5 mg-acetaminophen 325 1 tab PO QDAY@0400 PRN pain #30 11/18/21 01/06/22 01/05/22 Rx mg tablet tabs testosterone cypionate 200 mg/mL 300 mg (1.5 mL) IM .EVERY 2 WEEKS 12/08/21 01/06/22 Unknown Rx intramuscular oil 30 days #3 mL gabapentin 300 mg capsule See Rx Instructions .Route 12/24/21 01/06/22 01/06/22 Rx .COMPLEX #120 caps pen needle, diabetic 32 gauge x #100 ea 12/26/21 01/06/22 Unknown Rx 1/4 (BD Ultra-Fine Micro Pen Needle) aripiprazole 2 mg tablet (Abilify) 2 mg PO DAILY 12/30/21 01/06/22 01/06/22 History cholestyramine-aspartame 4 gram 4 g PO BID PRN Diarrhea 12/30/21 01/06/22 Unknown History oral powder (Cholestyramine Light) liraglutide 0.6 mg/0.1 mL (18 mg/3 1.2 mg SUBCUT DAILY 12/30/21 01/06/22 01/05/22 History mL) subcutaneous pen injector ([employer] 2-Peter) fluticasone propionate 50 2 spray intranasal DAILY PRN 01/06/22 01/06/22 Unknown History mcg/actuation nasal Shortness Of Breath spray,suspension (Flonase Allergy Relief) sucralfate 1 gram tablet (Carafate) 1 g PO Q6H PRN Stomach Upset 01/06/22 01/06/22 Unknown History Allergies Allergy/AdvReac Type Severity Reaction Status Date / Time No Known Allergies Allergy Verified 01/06/22 08:34 Current Medications Generic Name Dose Route Start Last Admin Trade Name Freq PRN Reason Stop Dose Admin Acetaminophen 650 mg 01/06/22 13:34 01/08/22 03:42 Acetaminophen 325 Mg Tablet PO 650 mg Q6H PRN Administration Mild/Mod Pain Or Temp >/= 101 Aripiprazole 2 mg 01/07/22 09:00 01/08/22 09:31 Aripiprazole 2 Mg Tablet PO 2 mg DAILY HUSAM Administration Budesonide 0.5 mg 01/06/22 21:14 01/08/22 08:49 Budesonide 0.5 Mg/2 Ml Neb INHALATION 0.5 mg BID.RESPIRATORY HUSAM Administration Citalopram Hydrobromide 40 mg 01/07/22 04:00 01/08/22 00:10 Citalopram 20 Mg Tablet PO 40 mg DAILY@0400 HUSAM Administration Dextrose 25 ml 01/06/22 21:14 01/07/22 06:44 Dextrose 50% Syringe 50 Ml IVP 25 ml ONCE PRN Administration hypoglycemia protocol Protocol Gabapentin 300 mg 01/07/22 01:00 01/08/22 00:10 Gabapentin 300 Mg Capsule PO 300 mg TID@0100,1200,2100 HUSAM Administration Sodium Chloride 1,000 mls @ 100 mls/hr 01/06/22 13:45 01/08/22 05:09 Sodium Chloride 0.9% IV Infused .Q10H HUSAM Infusion Insulin Human Lispro 0 unit 01/06/22 21:14 01/08/22 00:20 Insulin Lispro 100 Unit/1 Ml SUBCUT Not Given WM&BEDTIME HUSAM Protocol Montelukast Sodium 10 mg 01/07/22 09:00 01/08/22 09:24 Montelukast Sodium 10 Mg Tablet PO 10 mg DAILY HUSAM Administration Nicotine 1 patch 01/06/22 21:14 01/07/22 21:07 Nicotine 21 Mg Patch TRANSDERMA 1 patch Q24H HUSAM Administration Pantoprazole Sodium 40 mg 01/06/22 14:30 01/08/22 00:11 Pantoprazole 40 Mg Sdv IVP 40 mg Q12H HUSAM Administration Tramadol HCl 37.5 mg 01/08/22 04:00 01/08/22 03:59 Tramadol 50 Mg Tablet PO 37.5 mg DAILY@0400 HUSAM Administration PFSH Anesthesia Medical History Benign essential HTN COPD (chronic obstructive pulmonary disease) Depression GERD (gastroesophageal reflux disease) Low testosterone EMMANUEL (obstructive sleep apnea) Type 2 diabetes mellitus, without long-term current use of insulin Surgical History History of cholecystectomy Family History Other Alzheimer disease Cancer Hypertension Social History Smoking and tobacco status: current every day smoker cigarettes Packs smoked per day: 1 Alcohol intake: never Data Anesthesia : 01/07/22 05:11 01/08/22 02:32 Short CBC 01/07/22 Range/Units 05:11 WBC 7.7 (4.0-10.0) 10^3/uL Hgb 14.8 (11.7-16.6) g/dL Hct 43.1 (42.0-52.0) % MCV 91.7 (80-94) fl Plt Count 266 (130-400) 10^3/cmm Neut % (Auto) 66.9 % Neut # (Auto) 5.17 (1.8-7.7) 10^3/uL BMP 01/06/22 01/07/22 01/07/22 21:40 05:11 13:00 Sodium 140 139 Potassium 2.4 L* 2.5 L* 2.9 L Chloride 101 102 Carbon Dioxide 31 H 31 H BUN 12 10 Creatinine 1.1 0.8 Glucose 71 68 Calcium 7.7 L 7.8 L 01/08/22 01/08/22 01:20 02:32 Sodium 145 Potassium 2.9 L 3.1 L Chloride 108 H Carbon Dioxide 26 BUN 9 Creatinine 0.7 Glucose 61 L Calcium 7.8 L Cardiac Enzymes 01/06/22 Range/Units 15:10 Troponin T Hi Sens 6Hr 17.92 H (0-15) ng/L Troponin T Hi Sens 6Hr Delta -4.08 L (0-12) ng/L Liver Function 01/07/22 Range/Units 05:11 Total Bilirubin 0.7 (0.15-1.2) mg/dL AST 11 (0-40) U/L ALT 8 (0-41) U/L Alkaline Phosphatase 69 (40-130) IU/L Albumin 2.5 L (3.5-5.2) g/dL Cardiac Studies: No Data to Display
[2022-01-08] MEDS: sodium chloride 0.9% 1,000 ML 100 ML IV (14:11)
[2022-01-08 15:05] LABS: Alanine Aminotransferase 8 U/L (0-41); Albumin Level 2.2 g/dL (3.5-5.2); Alkaline Phosphatase 62 IU/L (40-130); Anion Gap 10.2 (5-19); Aspartate Amino Transferase 17 U/L (0-40); Blood Urea Nitrogen 8 mg/dL (6-20); Calcium 7.8 mg/dL (8.5-10.5); Carbon Dioxide 28 mmol/L (22-29); Chloride 110 mmol/L (98-107); Globulin 2.8 g/dL (1.3-4.6); Glomerular Filtration Rate 115.4 mL/min (90-130); Glucose 79 mg/dL (65-115); Osmolality Calculated 297 mOsm/kg (285-295); Potassium 3.2 mmol/L (3.5-5.1); Sodium 145 mmol/L (136-145); Total Bilirubin 0.5 mg/dL (0.15-1.2)
[2022-01-08] MEDS: acetaminophen 1,000 MG/100 ML PIGGYBACK 400 MG IV (15:29)
[2022-01-08] MEDS: sodium chloride 0.9% 1,000 ML 30 ML IV (15:30)
--- NOTE | 2022-01-08 15:50 | SUR.PREOP ---
1550 Dr Boles in to see pt. Surgery will not be done today. Per Dr Boles orders, nurse spoke with charge nurse Sophia on med surg unit. Nurse explained Dr Boles wants patient to have copies of recommendations made by Kendra in dietary. Nurse explained to Sophia to explain to patient that he needs to drink 3-4 protein shakes daily.
--- NOTE | 2022-01-08 16:01 | PM.PN ---
Subjective Subjective: Patient was seen and evaluated today for potential laparoscopic feeding jejunostomy placement. 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 Winchester and Dr. Ornelas regarding patient's care. Oncology service recommended to have a port placed and a feeding jejunostomy during the same hospitalization. Patient has been tolerating p.o. in the form of clear liquid and protein shakes and was seen and evaluated by the dietitian during this hospitalization. And the plan was to perform a laparoscopic feeding jejunostomy today. Vitals/I&O/Wt Last Vital Signs Temp 97.6 F 01/08/22 15:14 Pulse 78 01/08/22 15:14 Resp 18 01/08/22 15:14 BP 105/71 01/08/22 15:14 Pulse Ox 95 01/08/22 15:14 O2 Del Method 01/08/22 15:14 01/08/22 01/08/22 01/08/22 06:59 14:59 22:59 Intake Total 1105 / 1511.667 550 / 550 Balance 1105 / 1511.667 550 / 550 Weight last 48 hrs Weight 192 lb 9.6 oz Physical Exam Narrative: Patient is conscious alert oriented X3 No apparent distress BMI 27.6 Head and neck examination PERRLA no masses no cervical lymphadenopathy no jaundice Abdomen nontender nondistended soft no organomegaly guarding or rigidity/no signs of peritonitis Extremities no cyanosis no clubbing no edema Data : 01/07/22 05:11 01/08/22 14:15 A&P Assessment and plan (1) Esophageal cancer: After thorough history physical examination and reviewing the chart and images, I did originally counseled the patient for laparoscopic feeding jejunostomy to be placed today yet before the procedure I elected to obtain CMP that revealed a serum albumin of 2.2, and I did have a conversation with the patient that less than 2.5 of serum albumin he would be at higher risk of leak with regard to the feeding jejunostomy and may end up by peritonitis and subsequently exploratory laparotomy. With the potential poor healing of the wound and further complications. I did update Dr. Ornelas with my thoughts that as long as the patient is able to tolerate p.o. intake and can focus on protein shakes, patient can be discharged home today and follow-up with me this coming Wednesday at the office with repeat CMP and we will plan once his nutrition is bit optimized to proceed with laparoscopic feeding jejunostomy and at some point a PowerPort the patient can start his treatment. Patient understands the above and he agreed on the plan of care, dietitian report would be printed out and given to the patient and I did talk in person with Shaista outpatient dietitian that works with home health about the potential need for dietitian's recommendation down the road once the patient receives the feeding jejunostomy. We will continue coordinating care with Dr. Winchester. Assurance and education All questions have been answered and all concerns have been addressed to patient's satisfaction. 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
--- NOTE | 2022-01-08 17:24 | PM.DCS ---
Discharge Providers Date of Admission: 01/06/22 13:34 Date of Discharge: January 08, 2022 Attending Provider at Admission: Jhoan Ornelas MD Attending Provider at Discharge: Jhoan Ornelas MD Primary Care Provider: Trudy Cason DO Diagnoses at Discharge Discharge Diagnosis (1) Esophageal cancer: Status: Acute Reason for Visit Reason for Visit: headache, dizzy Hospital Course Hospital Course Ovi is a 61-year-old white male who presented to the emergency department complaining of inability to tolerate p.o. intake, particularly solids. He reports he could intermittently handle liquids. Problem has been progressive over the last 10 months or more. He reports significant weight loss in this timeframe. He was found to be markedly hypokalemic. CT chest demonstrated distal esophageal mass. EGD was performed January 07, demonstrating esophageal mass and biopsies were taken. While in the hospital he tolerated liquids, without significant emesis/spitting up. There was discussion regarding the jejunostomy tube, but surgery wished to defer this until he had a chance to improve nutrition and increase albumin to reduce risk of poor wound healing, and peritonitis/leak. Albumin had decreased from 2.9 on admission to 2.2. Patient was agreeable to go home, with close follow-up with surgery regarding jejunostomy tube as well as likely port placement. He will also follow-up with oncology and primary care provider. He will have a CMP in 4 days. 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 He was encouraged to stop smoking. Physical Exam Narrative: See exam done earlier today Discharge Data Studies Completed and Pending Completed Studies During Hospitalization Category Date Time Status CT chest abd pel w con* Stat Cat Scan 01/06/22 12:32 Completed XR chest 1V portable [id number] Stat Exams 01/06/22 09:06 Completed Pathology: Surgical [PTH] Routine Pth 01/08/22 06:57 Completed Pending at discharge Category Date Time Status BMP [Basic Metabolic Panel] AM LABS Lab 01/09/22 04:00 Ordered Radiology Impressions Chest X-Ray 01/06/22 09:06 IMPRESSION: No acute cardiopulmonary process. Chest/Abdomen/Pelvis CT 01/06/22 12:32 IMPRESSION: 1. Distal esophageal wall thickening with extension into the fundus of the stomach. Differential includes esophagitis and neoplasm. Suspect neoplasm as there are several enlarged lymph nodes at the gastrohepatic ligament with the largest measuring 2.4 cm in diameter. 2. Additional lobulated thickening extending into the fundus of the stomach with mild diffuse mucosal thickening of the stomach. 3. Recommend upper endoscopy to evaluate the distal esophagus and the stomach. 4. PET/CT may be helpful to evaluate the abnormal lymph nodes along the gastrohepatic ligament. There are smaller retroperitoneal lymph nodes. 5. Indeterminate bilateral hilar lymph nodes with the largest measuring 12 mm on the LEFT. Laboratory Results WBC 7.7 10^3/uL (4.0-10.0) 01/07/22 05:11 RBC 4.70 10^6/uL (4.1-5.3) 01/07/22 05:11 Hgb 14.8 g/dL (11.7-16.6) 01/07/22 05:11 Hct 43.1 % (42.0-52.0) 01/07/22 05:11 MCV 91.7 fl (80-94) 01/07/22 05:11 MCH 31.5 pg (28.0-34.0) 01/07/22 05:11 MCHC 34.3 g/dL (30.0-36.0) 01/07/22 05:11 RDW 13.3 % (12.1-15.1) 01/07/22 05:11 Plt Count 266 10^3/cmm (130-400) 01/07/22 05:11 MPV 10.4 fL (7.4-10.4) 01/07/22 05:11 Neut % (Auto) 66.9 % 01/07/22 05:11 Lymph % (Auto) 25.1 % 01/07/22 05:11 Milam % (Auto) 6.1 % 01/07/22 05:11 Eos % (Auto) 1.2 % 01/07/22 05:11 Baso % (Auto) 0.4 % 01/07/22 05:11 Neut # (Auto) 5.17 10^3/uL (1.8-7.7) 01/07/22 05:11 Lymph # (Auto) 1.9 10^3/uL (0.8-4.8) 01/07/22 05:11 [place] # (Auto) 0.5 10^3/uL (0.2-0.9) 01/07/22 05:11 Eos # (Auto) 0.1 10^3/uL (0.0-0.8) 01/07/22 05:11 Baso # (Auto) 0.0 10^3/uL (0.0-0.1) 01/07/22 05:11 Nucleated RBC % (auto) 0 % 01/07/22 05:11 Nucleated RBCs # 0.0 /100WBC 01/07/22 05:11 Specimen Type Arterial 01/06/22 09:15 Sample Site Brachial, right 01/06/22 09:15 ABG pH 7.55 (7.35-7.45) H 01/06/22 09:15 ABG pCO2 36.6 mmHg (35-45) 01/06/22 09:15 ABG pO2 69.9 mmHg (80.0-100.0) L 01/06/22 09:15 ABG HCO3 32.3 mmol/L (22-26) H 01/06/22 09:15 ABG O2 Saturation 97.8 01/06/22 09:15 ABG Base Excess 9.5 mmol/L (-2.0-2.0) H 01/06/22 09:15 Jamel Test N/a 01/06/22 09:15 A-a O2 Gradient 4.5 mmHg (5-10) L 01/06/22 09:15 Hematocrit 56.9 % (42-52) H 01/06/22 09:15 Hgb O2 Saturation 89.3 % (95-100) L 01/06/22 09:15 Carboxyhemoglobin 8.6 %THgb (0.4-20.1) 01/06/22 09:15 Methemoglobin 0.2 % (0.4-1.5) L 01/06/22 09:15 Total Hemoglobin 18.6 g/dL (14-18) H 01/06/22 09:15 Sodium 126.0 mmol/L (131-143) L 01/06/22 09:15 Potassium 2.1 mmol/L (3.5-5.0) L 01/06/22 09:15 Glucose 82.0 mg/dL (70-115) 01/06/22 09:15 Ionized Calcium 1.1 mmol/L (1.1-1.4) 01/06/22 09:15 O2 Delivery Device Room air 01/06/22 09:15 FiO2 21.0 % 01/06/22 09:15 Bakery Assistant ID glc 01/06/22 09:15 Sodium 145 mmol/L (136-145) 01/08/22 14:15 Potassium 3.2 mmol/L (3.5-5.1) L 01/08/22 14:15 Chloride 110 mmol/L (98-107) H 01/08/22 14:15 Carbon Dioxide 28 mmol/L (22-29) 01/08/22 14:15 Anion Gap 10.2 (5-19) 01/08/22 14:15 BUN 8 mg/dL (6-20) 01/08/22 14:15 Creatinine 0.7 mg/dL (0.7-1.2) 01/08/22 14:15 GFR Calculation 115.4 mL/min (90-130) 01/08/22 14:15 Glucose 79 mg/dL (65-115) 01/08/22 14:15 POC Glucose 104 mg/dL (70-110) 01/08/22 10:56 Calculated Osmolality 297 mOsm/kg (285-295) H 01/08/22 14:15 Lactic Acid 1.3 mmol/L (0.5-2.2) 01/06/22 09:30 Calcium 7.8 mg/dL (8.5-10.5) L 01/08/22 14:15 Magnesium 1.7 mg/dL (1.7-2.3) 01/08/22 01:20 Total Bilirubin 0.5 mg/dL (0.15-1.2) 01/08/22 14:15 AST 17 U/L (0-40) 01/08/22 14:15 ALT 8 U/L (0-41) 01/08/22 14:15 Alkaline Phosphatase 62 IU/L (40-130) 01/08/22 14:15 Troponin T Baseline 22 ng/L (0-15) H 01/06/22 09:30 Troponin T 120 Minute 17.80 ng/L (0-15) H 01/06/22 11:16 Delta Troponin T -4.20 ABS# (0-10) L 01/06/22 11:16 Troponin T Hi Sens 6Hr 17.92 ng/L (0-15) H 01/06/22 15:10 Troponin T Hi Sens 6Hr Delta -4.08 ng/L (0-12) L 01/06/22 15:10 Total Protein 5.0 g/dL (6.6-8.7) L 01/08/22 14:15 Albumin 2.2 g/dL (3.5-5.2) L 01/08/22 14:15 Globulin 2.8 g/dL (1.3-4.6) 01/08/22 14:15 Lipase 14 U/L (13-60) 01/06/22 09:30 Urine Color Yellow (Yellow) 01/06/22 11:27 Urine Appearance Clear (CLEAR) 01/06/22 11:27 Urine pH 5 (5-7) 01/06/22 11:27 Ur Specific [place] 1.015 (1.005-1.030) 01/06/22 11:27 Urine Protein Neg (Negative) 01/06/22 11:27 Urine Glucose (UA) Norm (Normal) 01/06/22 11:27 Urine Ketones Negative (Negative) 01/06/22 11:27 Urine Blood Neg (Negative) 01/06/22 11:27 Urine Nitrate Negative (Negative) 01/06/22 11:27 Urine Bilirubin Neg (Negative) 01/06/22 11:27 Urine Urobilinogen Norm mg/dL (Negative) 01/06/22 11:27 Ur Leukocyte Esterase Negative (Negative) 01/06/22 11:27 Vitals Last Vital Signs Temp 98.1 F 01/08/22 16:00 Pulse 79 01/08/22 16:00 Resp 16 01/08/22 16:00 BP 107/61 01/08/22 16:00 Pulse Ox 97 01/08/22 16:00 O2 Del Method 01/08/22 16:00 Discharge Plan Discharge Patient Disposition: Home Condition: Stable Prescriptions: New potassium chloride 40 mEq/15 mL liquid 40 meq PO DAILY Qty: 473 0RF Continued Spiriva with HandiHaler 18 mcg capsule, w/inhalation device 1 cap INHALATION QDAY@1400 90 Days Qty: 90 1RF pantoprazole [Protonix] 40 mg tablet,delayed release (DR/EC) 40 mg PO BID 90 Days Qty: 180 0RF (DME) pen needle, diabetic [Comfort EZ Pen [place]] 32 gauge x 1/4 needle See Rx Instructions .ROUTE .MEDSUPPLY Qty: 50 2RF Rx Instructions: As directed for Victoza Singulair 10 mg tablet 10 mg PO DAILY Qty: 90 3RF fluticasone propion-salmeterol [Advair Diskus] 250-50 mcg/dose blister with device 1 inh inhalation BID Qty: 60 5RF citalopram 40 mg tablet 40 mg PO QDAY@0400 Qty: 90 0RF albuterol sulfate [ProAir HFA] 90 mcg/actuation HFA aerosol inhaler 2 puff INHALATION Q6H PRN (Reason: shortness of breath or wheezing) Qty: 8.5 5RF tramadol-acetaminophen 37.5-325 mg tablet 1 tab PO QDAY@0400 PRN (Reason: pain) Qty: 30 1RF Rx Instructions: Must last 30 days gabapentin 300 mg capsule See Rx Instructions .ROUTE .COMPLEX Qty: 120 0RF Dose Instruction: TAKE 1 CAPSULE BY MOUTH AT 1:00AM, TAKE 1 CAPSULE AT NOON, AND TAKE 1 CAPSULE EVERY DAY AT BEDTIME Rx Instructions: TAKE 1 CAPSULE BY MOUTH AT 1:00AM, TAKE 1 CAPSULE AT NOON, AND TAKE 1 CAPSULE EVERY DAY AT BEDTIME (DME) pen needle, diabetic [BD Ultra-Fine Micro Pen Needle] 32 gauge x 1/4 needle See Rx Instructions .Route Qty: 100 11RF Rx Instructions: USE DIRECTED FOR VICTOZA aripiprazole [Abilify] 2 mg tablet 2 mg PO DAILY Rx Instructions: TAKE 1 TABLET BY MOUTH DAILY AT 4 AM Flonase Allergy Relief 50 mcg/actuation spray,suspension 2 spray intranasal DAILY PRN (Reason: Shortness Of Breath) Rx Instructions: administer into each nostril Discontinued spironolactone 25 mg tablet 25 mg PO QDAY@0400 Qty: 90 0RF potassium chloride [Klor-Con 10] 10 mEq tablet extended release 10 meq PO DAILY Qty: 90 0RF furosemide [Lasix] 20 mg tablet 20 mg PO DAILY 30 Days Qty: 30 1RF lisinopril 10 mg tablet 10 mg PO DAILY@0400 90 Days Qty: 90 0RF testosterone cypionate 200 mg/mL oil 300 mg IM .EVERY 2 WEEKS 30 Days Qty: 3 3RF Rx Instructions: three bottles each month total of 3 ML Cholestyramine Light 4 gram powder 4 g PO BID PRN (Reason: Diarrhea) Victoza 2-Peter 0.6 mg/0.1 mL (18 mg/3 mL) pen injector 1.2 mg SUBCUT DAILY Rx Instructions: ADMINISTER 1.2 MG UNDER THE SKIN DAILY AT 3 PM Carafate 1 gram tablet 1 g PO Q6H PRN (Reason: Stomach Upset) Discharge Orders: Discharge Order (Routine); Ordered 01/08/22 Ordered By: Jhoan Ornelas Referrals: Alex Boles MD [Physician] - 01/12/22 4:00 pm (See Wednesday CMP to be drawn at that time) Trudy Cason DO [Primary Care Provider] - 4-7 days (Please call Dr. Cason's Office at [phone] tomorrow and schedule a follow up appointment for 4-7 days. Thank you.) Aurora Winchester MD [Staff Physician] - 1 week (Please call Dr. Winchester's Office at [phone] tomorrow to schedule a follow up appointment for 1 week. Thank you.) Discharge Diet: Full LIquid Discharge Activity: Increase activity as tolerated Patient Instructions: Potassium Chloride (By mouth) (K-Dur, K-Libia, K-Tab, Humphrey Mur), GI Discharge Instructions, Opioid Safety Activity Restrictions/Additional Instructions: Drink 4-5 Glucerna 1.5cal. or Ensure Plus daily. If not able to finish meals try to finish the drinks. These are not to substitute meals, but supplement them. Take all medicine as prescribed Return if cannot tolerate p.o. Keep follow-up as directed Discharge Attestations Time Spent in Discharge Care*: greater than 30 min Quality Metrics Clinical Quality Measures [ No reported AMI, CVA or VTE this stay] Coding Level of Care Code Acute g FW [place] note Diagnoses Esophageal cancer C15.9
[2022-01-08 17:27] LABS: Glucose Point of Care 78 mg/dL (70-110)
--- NOTE | 2022-01-08 18:13 | PC.NURSE ---
Discharge Note Patient discharged to home via private vehicle accompanied by self. Discharge instructions reviewed with patient and/or uniforms sales representative. Mobile pharmacy medications and/or prescriptions provided. Belongings/home medications returned.
[2022-01-19 12:36] LABS: HER2 FISH/IHC (Non-Gastric) See Report
[2022-01-21 11:07] LABS: PD-L1 (Clone 22C3) by IHC BBPL See Report
== END 2022-01-08 18:23 | disposition home or self-care (01) | DRG 375 ==
LOC: ER 16:53 → MEDSURG 18:23
PROVIDERS: Anesthesiology; Surgery; Admitting Provider Internal Medicine; Emergency Provider Family Medicine; PCP Family Medicine; Visit Provider Internal Medicine
PROC: 0DJ08ZZ Inspection of Upper Intestinal Tract, Via Natural or Artificial Opening Endoscopic (ICD-10-PCS; CPT 43235; principal; 2022-01-07 12:00)
PROC: (CPT 43246; principal; 2022-01-08 16:00)
DX: C15.5 Malignant neoplasm of lower third of esophagus (principal); E87.1 Hypo-osmolality and hyponatremia; N17.9 Acute kidney failure, unspecified; J43.1 Panlobular emphysema; K21.9 Gastro-esophageal reflux disease without esophagitis; G47.33 Obstructive sleep apnea (adult) (pediatric); E11.9 Type 2 diabetes mellitus without complications; F32.A Depression, unspecified; E87.6 Hypokalemia; I10 Essential (primary) hypertension; R59.0 Localized enlarged lymph nodes; R13.10 Dysphagia, unspecified; F17.210 Nicotine dependence, cigarettes, uncomplicated; R63.4 Abnormal weight loss; Z68.27 Body mass index [BMI] 27.0-27.9, adult; Z90.49 Acquired absence of other specified parts of digestive tract; Z79.4 Long term (current) use of insulin
CPT/HCPCS: 36415; 36416; 36600; 43202; 71045; 71260; 74177; 80048; 80051; 80053; 81003; 82330; 82805; 82962; 83605; 83690; 83735; 84132; 84484; 85025; 88104; 88305; 88341; 88342; 93005; 94640; 96365; 96366; 96372; 99285; C9113; J1644; J2704; J3010; J3480; J3490; J7030; J7626; Q9967

== ENCOUNTER 2022-01-12 10:26 | Outpatient (CLI) | payer MEDICARE, MEDICAID, SELFPAY ==
[2022-01-12 11:08] LABS: Alanine Aminotransferase 10 U/L (0-41); Albumin Level 2.8 g/dL (3.5-5.2); Alkaline Phosphatase 72 U/L (40-130); Anion Gap 12.2 (5-19); Aspartate Amino Transferase 11 U/L (0-40); Blood Urea Nitrogen 10 mg/dL (6-20); Calcium 8.5 mg/dL (8.5-10.5); Carbon Dioxide 29 mmol/L (22-29); Chloride 102 mmol/L (98-107); Globulin 3.2 g/dL (1.3-4.6); Glomerular Filtration Rate 137.9 mL/min (90-130); Glucose 115 mg/dL (65-115); Osmolality Calculated 290 mOsm/kg (285-295); Potassium 3.2 mmol/L (3.5-5.1); Sodium 140 mmol/L (136-145); Total Bilirubin 0.4 mg/dL (0.15-1.2)
== END 2022-01-12 10:27 | disposition home or self-care (01) ==
PROVIDERS: PCP Family Medicine; Visit Provider Surgery
DX: R63.4 Abnormal weight loss (principal)
CPT/HCPCS: 36415; 80053; 99213

== ENCOUNTER 2022-01-14 09:34 | Oncology outpatient (recurring) (ONCR) | payer MEDICARE, MEDICAID, SELFPAY | END 2022-01-28 23:59 | disposition home or self-care (01) | PROVIDERS: PCP Family Medicine; Visit Provider Internal Medicine Medical Oncology | DX: C15.5 Malignant neoplasm of lower third of esophagus (principal); F17.210 Nicotine dependence, cigarettes, uncomplicated; Z79.899 Other long term (current) drug therapy | CPT/HCPCS: 99204; 99205 ==

== ENCOUNTER → 2022-01-16 09:00 | Outpatient (BNVA) | payer MEDICARE, MEDICAID, SELFPAY | PROVIDERS: PCP Family Medicine; Visit Provider Family Medicine | DX: E87.6 Hypokalemia (principal) | CPT/HCPCS: 80053 ==

== ENCOUNTER 2022-01-19 08:20 | Day surgery (SDC) | payer MEDICARE, MEDICAID, SELFPAY ==
[2022-01-16 09:01] VITALS: BMI 28.7
[2022-01-19] VITALS (9 sets, daily range): BP systolic 98–137; BP diastolic 65–96; PULSE 80–107; RESP 16–18; TEMP 36.1–36.3; O2SAT 96–99
--- NOTE | 2022-01-19 10:16 | W.PM.OPSUD ---
Surgery/Procedure H&P Update DATE OF PROCEDURE: January 19, 2022 DATE H&P PERFORMED: 01/12/22 H&P UPDATE INFORMATION: I have reviewed H&P completed within last 30 days, I have examined patient prior to procedure and No changes to prior documentation PREOP DIAGNOSIS: Obstructive esophageal mass PRIMARY INDICATION FOR PROCEDURE: The same PLANNED PROCEDURE: Operation Date: 01/19/22 10:40 Proposed Procedures p power port placement and lap poss open feeding jejunostomy placement [id number],C15.9,K22.89(Not Applicable) - Alex Boles MD s Portacath Placement(Not Applicable) - Alex Boles MD
--- NOTE | 2022-01-19 10:19 | SC_ITS ---
WS: [id number] INTRAOPERATIVE TECHNIQUE: 2 Spot fluoroscopic images for intraoperative purposes. FLUOROSCOPY TIME: 23.0 seconds CLINICAL INFORMATION: PowerPort placement COMPARISON: None. FINDINGS: RIGHT Port-A-Cath with tip in the mid to distal SVC. No visualized pneumothorax. Endotracheal tube. SC/C-arm FL for CVA [id number] IMPRESSION: Images obtained for intraoperative purposes.
--- NOTE | 2022-01-19 10:39 | ANES.PREANE2 ---
Pre-Anesthetic Assessment Height/Weight: Height 1.78 m Weight 90.718 kg Temp Pulse Resp BP Pulse Ox O2 Del Method 97.0 F L 107 H 18 109/72 98 01/19/22 10:38 01/19/22 10:38 01/19/22 10:38 01/19/22 10:38 01/19/22 10:38 01/19/22 10:38 Preop Diagnosis: Esophageal cancer Operation Date: 01/19/22 10:40 Proposed Procedures p power port placement and lap poss open feeding jejunostomy placement [id number],C15.9,K22.89(Not Applicable) - Alex Boles MD s Portacath Placement(Not Applicable) - Alex Boles MD Familial anesthetic complications: none Was Beta Lyn taken within 24 hours: N/A Was Clonidine taken within 24 hours: N/A Social Tobacco and No alcohol Exam alert, oriented x 3, clear to auscultation bilaterally and regular rate & rhythm Airway Submandibular: within normal limits Cervical ROM: within normal limits Mallampati: Class II Dentition: chipped Comments: Comments: Upper front incisors broken Very poor dentition Pulmonary Asthma, Chronic Obstructive Pulmonary Disease and Sleep Apnea (Does not use CPAP/BiPAP) CV/HEM Hypertension Chronic Renal Insufficiency Hepatic None reported GI Gastroesophageal Reflux Disease (Well controlled ) Esophageal cancer Metabolic Diabetes Mellitus Neuropsych Depression Anesthetic Plan ASA status: 3 Anesthesia: Anesthesia Evaluation and General Other: We discussed risk and benefits of general anesthesia including PONV, sore throat (sometimes severe), corneal abrasion, positioning and peripheral nerve injuries, life threatening allergic reaction, post operative ICU admission requiring prolonged intubation, aspiration, stroke, heart attack, , and rare incidences of recall. Patient consents to proceed with general anesthesia. Other Pertinent Information Discussed hyperkalemia. Patient was notified by PCP of high potassium and reduced his dose yesterday to his previous lower dose per his PCP's instructions. Medications/Allergies Home Medications Medication Instructions Recorded Confirmed Last Taken Type pen needle, diabetic 32 gauge x #50 ea 05/21/20 01/14/22 Unknown Rx 1/4 (Comfort EZ Pen [place]) tiotropium bromide 18 mcg capsule 1 cap inhalation QDAY@1400 90 days 08/15/21 01/19/22 01/18/22 Rx with inhalation device (Spiriva #90 inhalations with HandiHaler) fluticasone 250 mcg-salmeterol 50 1 inh inhalation BID #60 ea 09/01/21 01/19/22 01/18/22 Rx mcg/dose blistr powdr for inhalation (Advair Diskus) citalopram 40 mg tablet 40 mg PO QDAY@0400 #90 tabs 09/10/21 01/19/22 01/19/22 Rx albuterol sulfate 90 mcg/actuation 2 puff inhalation Q6H PRN 10/30/21 01/19/22 01/18/22 Rx aerosol inhaler (ProAir HFA) shortness of breath or wheezing #8.5 grams pantoprazole 40 mg tablet,delayed 40 mg PO BID 90 days #180 tabs 11/10/21 01/19/22 01/18/22 Rx release (Protonix) tramadol 37.5 mg-acetaminophen 325 1 tab PO QDAY@0400 PRN pain #30 11/18/21 01/19/22 01/18/22 Rx mg tablet tabs gabapentin 300 mg capsule See Rx Instructions .Route 12/24/21 01/19/22 01/19/22 Rx .COMPLEX #120 caps pen needle, diabetic 32 gauge x #100 ea 12/26/21 01/14/22 Unknown Rx 1/4 (BD Ultra-Fine Micro Pen Needle) aripiprazole 2 mg tablet (Abilify) 2 mg PO DAILY 12/30/21 01/19/22 01/18/22 History fluticasone propionate 50 2 spray intranasal DAILY PRN 01/06/22 01/19/22 01/18/22 History mcg/actuation nasal Shortness Of Breath spray,suspension (Flonase Allergy Relief) potassium chloride 40 mEq/15 mL 40 meq (15 mL) PO DAILY #473 mL 01/08/22 01/19/22 01/18/22 Rx oral liquid Allergies Allergy/AdvReac Type Severity Reaction Status Date / Time No Known Allergies Allergy Verified 01/14/22 10:10 [facility] Anesthesia Medical History Benign essential HTN COPD (chronic obstructive pulmonary disease) Depression Esophageal cancer GERD (gastroesophageal reflux disease) Hypokalemia Low testosterone EMMANUEL (obstructive sleep apnea) Type 2 diabetes mellitus, without long-term current use of insulin Surgical History History of cholecystectomy History of esophagogastroduodenoscopy (EGD) (01/07/22) Family History Father Cancer Lung Hyperlipidemia Brother Lung disease COPD Other Alzheimer disease Hypertension Denies family history of Diabetes CAD (coronary artery disease) Clotting disorder Dementia Psychiatric illness Chronic kidney disease (CKD) Suicide Anesthesia complication Bleeding disorder Stroke Social History Smoking and tobacco status: current every day smoker (1 to 2 PPD) cigarettes Packs smoked per day: 1 Alcohol intake: former Data Anesthesia Cardiac Studies: No Data to Display
[2022-01-19] MEDS: acetaminophen 1,000 MG/100 ML PIGGYBACK 400 MG IV (10:45)
[2022-01-19] MEDS: sodium chloride 0.9% 1,000 ML 30 ML IV (10:46)
[2022-01-19 10:47] LABS: Glucose Point of Care 107 mg/dL (70-110)
[2022-01-19] MEDS: ampicillin-sulbactam 3 GM in sodium chloride 0.9% (plus) 50 ML IV (11:01)
[2022-01-19] MEDS: lidocaine 2% INJ 20 mL INJECTION (11:30)
[2022-01-19] MEDS: heparin, porcine 1,000 unit/mL INJ 10 mL 4000 UNIT XX (11:38)
--- NOTE | 2022-01-19 14:02 | PM.OP ---
Operative Report Date of procedure: January 19, 2022 Pre-op diagnosis: Preop Diagnosis Esophageal cancer Post-op diagnosis: Normal anatomy of right subclavian Normal-looking viscera without evidence of carcinomatosis or ascites or liver involvement Procedure done: 1. Placement of right subclavian vein PowerPort 2. Fluoroscopic guidance and interpretation for placement of catheter 3. Laparoscopic placement of feeding jejunostomy Surgeon: Alex Boles MD Anesthesiology Resident: Surgical techs Jhoana/Leena, Vanna and Bryce Circulating nurses Patricia and Nanda Anesthesia: General ([employer] TRUING INSPECTOR Mary, Johnny and Sofi) Estimated blood loss (mL): 15 Procedure: After identifying the patient in holding area, was taken to the OR placed in supine position, intubated by anesthesia,Time-out was done verifying the patient's name/date of /planned procedure and destination after the procedure, all were in agreement. SCDs confirmed to be functioning, preoperative antibiotics administered per protocol, and beta antonio protocol was confirmed, both arms were tucked and padded to the site, prep and drape of the neck, chest and abdomen were done under the usual sterile technique. A Hare catheter was inserted. Medications were reviewed to assess for anticoagulant usage. Risks and benefits and prevention of central line associated blood stream infection (CLABSI) were discussed with the patient/CPOA, and a consent was obtained. Monitors were in place and monitored throughout the procedure. All necessary supplies were available prior to start. Hand hygiene was completed prior to starting. Maximum barrier technique was utilized including a sterile gown, sterile gloves with a hat and mask. Site was was prepped with [chlorhexidine] and a full body drape was placed. 5 mL of 2% lidocaine was injected into the skin with a 25 gauge needle. Prep& drape was done under the usual sterile technique, lidocaine 2% was injected at the site of the stick, started by right sub-clavian vein stick that retrieved venous blood was obtained from the first stick, a guide wire was then threaded and under the guidance of fluoroscopy position was confirmed to be in the IVC and my interpretation, there were no PVC changes, at that point the guide wire was secured to the drapes with a hemostat and the needle was taken out, attention was then deviated towards creation of a pocket for the port were lidocaine 2% was injected using an 15 blade knife skin incision was created dissection using the Bovie to create a pocket for the Power Port to be accommodated. Hemostasis was secured, after the port being appropriately flushed it was inserted into the pocket and a tunneler was used to accommodate the catheter of the port catheter to be delivered through the incision first created at the site of the stick, at that point under fluoroscopy an estimated length was measured for the catheter and was cut at the designed level, followed by that a dilator with the sheath introduced onto the guide wire the dilator and the wire were retrieved and the catheter of the port was introduced via the sheath where it was peeled off and the catheter maintained to be in the SVC that was confirmed with fluoroscopy, and the fluoroscopy interpretation was done by me throughout the entire procedure. The port was kept in its pocket,3-0 Vicryl deep subdermal interrupted sutures, skin was then closed by 4-0 Monocryl as subcuticular closure.The port was appropriately flushed with heparin and venous blood was withdrawn without difficulty.The stick site was closed by 4-0 Monocryl and Dermabond was used followed by dressing.Count was correct at the end of the procedure.Patient tolerated the procedure well. I was present for the whole entire procedure. Attention now was deviated towards the laparoscopic feeding jejunostomy port were I did scrub out to remove the lead cover and scrubbed back again. Started by longitudinal skin incision infraumbilical using a Garcia trocar technique safe entry to the abdominal cavity was achieved verified by using 10 mm zero degree laparoscopy there were no injuries, switched to a 30? scope under direct visualization, started by low flow gas then high flow additional 11 mm was applied at the right upper quadrant followed by a 5 mm trocar at the right lower quadrant create a triangle with Garcia trocar . At this point I asked anesthesia to place the patient in reverse T Kee, where I lifted the transverse colon. I was able to locate the ligament of Treitz, using laparoscopic bowel graspers. I was able to measure 60 cm distal to ligament of Treitz, at 2-0 Vicryl stitch was used to anchor the antimesenteric border of the jejunum to the abdominal wall, that was placed in the seromuscular layer,. Additional 2-0 silk stitch was applied as a pursestring suture and another 2-0 silk stitch applied left lateral to the pursestring suture at 3:00 for jejuno-pexy ,the stitch was taken anchored the jejunal loop to the abdominal wall. After locating the feeding jejunostomy suture site, that was marked on the skin of the abdominal wall on the left lateral part, local anesthesia was infiltrated and the skin incision was done, fascia was reached and a feeding jejunostomy 18 [place], the balloon was already tested and deemed to be intact, the catheter was then introduced through the skin incision under direct visualization, after creating an enterotomy using a [place] forceps hooked to a cautery,the tube was lubricated ,that was done extracorporeally. The tube was then introduced distally under direct visualization and was placed in good position, a pursestring suture was at the jejunostomy site using 2-0 silk prior to the introduction of the feeding jejunostomy tube, followed by 2-0 silk was used to anchor the antimesenteric border 2 inches distal to the jejunostomy site, and another one at 9:00 o'clock at the site of the enterotomy anchored to the abdominal wall, the balloon was then inflated using 7 mL of sterile water, gas was allowed to escape slowly, where there was an appropriate fixation of the jejunostomy to the abdominal wall, 100 mL of sterile water was infused through the tube showing no leak and no resistance. Suction irrigation was used as there was very mild spillage of enteric contents in the abdominal cavity. There was a small superficial tear of the less than centimeter of the mesentery of the jejunum distal to the feeding tube placement, I elected to place a [id number] 2-0 silk suture. Without jeopardizing the blood supply to the bowel. Final survey under normal pressure was done showing no injuries to the viscera and otherwise normal-looking viscera, no evidence of carcinomatosis or ascites or liver involvement and no evidence of succus. Under direct visualization the Garcia and 11 mm trochars were closed by [id number] #1 PDS sutures. Trocars were taken out under direct visualization, irrigation of incisions followed by application of skin beatrice were used to close all trocar site incisions, followed by Band-Aids and abdominal binder The feeding jejunostomy was anchored to the skin using 2-0 nylon stitches, count of sponges,needles and instruments were completed at the end. Hare catheter was taken out at the end of the procedure I was present for the whole entire procedure, after extubation patient was taken to the recovery in stable condition
--- NOTE | 2022-01-19 14:46 | ANE.PACU2 ---
Inpatient post-anesthesia follow up: Airway intact: Yes Vital signs: Temperature 97.2 F Pulse Rate 84 Respiratory Rate 16 Blood Pressure 107/65 Pulse Oximetry 96 Oxygen Delivery Me thod Room Air Oxygen Flow Rate 6 Fraction of Inspir ed Oxygen Hydration adequate: Yes Nausea and vomiting: No Pain level: 1 Mental status: Baseline
--- NOTE | 2022-01-19 15:29 | PC.NURSE ---
Spoke with Sha[facility] at [facility] per Dr. Boles instructions to update her on tube placement. She is aware that the tube needs to be flushed daily and that patient may start feedings slowly to see how he tolerates them and increase as needed slowly. Power port was tubed over to oncology. Spoke with ELVIE Barreto that patient had port placed and may start treatment.
--- NOTE | 2022-01-20 | SCC_ITS ---
Procedure done: 1. Placement of right subclavian vein PowerPort 2. Fluoroscopic guidance and interpretation for placement of catheter 3. Laparoscopic placement of feeding jejunostomy 23 seconds of fluoroscopic guidance, for a cumulative dose of 3.50 mGy, was provided to Dr. Boles by the radiology department. C-arm images of the chest were saved for the patient's permanent record. [facility]
== END 2022-01-19 15:35 | disposition home or self-care (01) ==
PROVIDERS: PCP Family Medicine; Visit Provider Surgery
PROC: (CPT 43246; principal; 2022-01-19 10:30)
PROC: (CPT 36561; 2022-01-19 10:30)
DX: C15.9 Malignant neoplasm of esophagus, unspecified (principal); J44.9 Chronic obstructive pulmonary disease, unspecified; I10 Essential (primary) hypertension; E11.9 Type 2 diabetes mellitus without complications; K21.9 Gastro-esophageal reflux disease without esophagitis; F32.A Depression, unspecified; G47.33 Obstructive sleep apnea (adult) (pediatric); F17.210 Nicotine dependence, cigarettes, uncomplicated
CPT/HCPCS: 36561; 44186; 36416; 51702; 76000; 77001; 82962; C1788; J0295; J1100; J1170; J1644; J2405; J2704; J2710; J3010; J3490; J7030; P9041

== ENCOUNTER → 2022-01-22 10:00 | Outpatient (BNVA) | payer MEDICARE, MEDICAID, SELFPAY | PROVIDERS: PCP Family Medicine; Visit Provider Family Medicine | DX: E87.6 Hypokalemia (principal); N18.9 Chronic kidney disease, unspecified | CPT/HCPCS: 80048; 99024 ==

== ENCOUNTER 2022-01-25 18:27 | Emergency (ER) | payer MEDICARE, MEDICAID, SELFPAY ==
[2022-01-25 18:34] VITALS: BP 105/72; PULSE 97; RESP 18; TEMP 36.8; O2SAT 95; BMI 27.9
--- NOTE | 2022-01-25 21:38 | ED_ITS ---
HPI - General Adult General: Chief complaint: General Medical Stated complaint: feeding tube leaking Time Seen by Provider: 01/25/22 21:11 Source: patient Mode of arrival: ambulatory Limitations: no limitations History of Present Illness: Patient is a nice 61-year-old male who presents to ED today with a concern that his jejunostomy tube is leaking. Patient thinks he may have rolled over on it in the middle of the night and is worried he possibly dislodged it. Patient states he noticed the leaking this morning. He is having a little bit of abdominal discomfort but states this has been present since the surgery and has not really changed much. He states he was still able to do his feedings today without difficulty. He reports he is having trouble keeping the J-tube site dressed and clean. Tube was placed approximately a week ago by Dr. Boles. Onset (ago): hour(s) Location: abdomen Relieving factors: none Exacerbating factors: none Associated symptoms: Deny chest pain, dyspnea, malaise, nausea or vomiting Treatments prior to arrival: none Review of Systems Const: Denies: fever(s), chills, body aches, fatigue or malaise Card: Denies: chest pain Resp: Denies: dyspnea GI: Reports: abdominal pain (reports mild-present since surgery; no worsening); Denies: nausea, vomiting, hematemesis or change in bowel habits : Denies: flank pain or dysuria Musc: Denies: neck pain, back pain, extremity pain or joint pain Skin/Breast: Reports: other (skin changes around j tube site) [facility] ED PFSH: Medical History Benign essential HTN COPD (chronic obstructive pulmonary disease) Depression Esophageal cancer GERD (gastroesophageal reflux disease) Hypokalemia Low testosterone EMMANUEL (obstructive sleep apnea) Type 2 diabetes mellitus, without long-term current use of insulin Surgical History History of cholecystectomy History of esophagogastroduodenoscopy (EGD) (01/07/22) Family History Father Cancer Lung Hyperlipidemia Brother Lung disease COPD Other Alzheimer disease Hypertension Denies family history of Diabetes CAD (coronary artery disease) Clotting disorder Dementia Psychiatric illness Chronic kidney disease (CKD) Suicide Anesthesia complication Bleeding disorder Stroke Social History Smoking and tobacco status: current every day smoker (1 to 2 PPD) cigarettes Packs smoked per day: 1 Alcohol intake: former Physical Exam Const: COMMON NORMALS: no acute distress, patient oriented x3, no limitations and alert ORIENTATION/CONSCIOUSNESS: Yes awake, Yes oriented to person, Yes oriented to place and Yes oriented to time Resp: COMMON NORMALS: normal respiratory effort and clear to auscultation bilaterally AUSCULTATION: clear to auscultation bilaterally Cardio: COMMON NORMALS: regular rate and regular rhythm RATE: regular rate RHYTHM: regular rhythm GI: COMMON NORMALS: Soft to palpation AUSCULTATION: Yes normoactive bowel sounds PALPATION: Yes Soft to palpation, No Guarding due to palpation present (GI) and No Rigid due to palpation OTHER: pts surgical incisions look clean and infection free; beatrice intact; his jejunostomy site has four intact sutures to button but does have some slight leaking around the site; he has some surrounding redness/skin maceration present : COMMON NORMALS: Yes no CVA tenderness BLADDER/KIDNEY EXAM: Yes no CVA tenderness Back/Pelvis: COMMON NORMALS: no CVA tenderness Extremity: GENERAL: Yes normal exam except as noted Neuro: SANTINO COMA SCALE: document GCS findings [place] coma scale eye opening: Spontaneous [place] coma scale verbal response: Orientated [place] coma scale motor response: Obey commands [place] coma scale total score: 15 COMMON NORMALS: patient oriented x3 SENSORIUM/ORIENTATION: Yes alert, Yes oriented to person, Yes oriented to place and Yes oriented to time Course Vital Signs: Vital signs: Vital Signs Temperature 98.2 F 01/25/22 18:34 Pulse Rate 97 01/25/22 18:34 Respiratory Rate 18 01/25/22 18:34 Blood Pressure 105/72 01/25/22 18:34 Pulse Oximetry 95 01/25/22 18:34 Oxygen Delivery Me thod 01/25/22 18:34 MDM - General Adult Medical Decision Making J-tube aspirates/flushes normally. KUB with gastrografin confirms placement w/o extravasation. He has an appointment to see Dr. Boles in the morning. Will clean/dress site and have him keep this appointment for further evaluation. Lab Data Radiology Impressions KUB X-Ray 01/25/22 21:38 IMPRESSION: Percutaneous gastric tube tip seen in the region of the small bowel with contrast in the small bowel without free extravasation. Discharge Plan Discharge Patient Disposition: Home Clinical Impression: Jejunostomy tube leak Condition: Stable Prescriptions: No Action Spiriva with HandiHaler 18 mcg capsule, w/inhalation device 1 cap INHALATION QDAY@1400 90 Days Qty: 90 1RF pantoprazole [Protonix] 40 mg tablet,delayed release (DR/EC) 40 mg PO BID 90 Days Qty: 180 0RF (DME) pen needle, diabetic [Comfort EZ Pen [place]] 32 gauge x 1/4 needle See Rx Instructions .ROUTE .MEDSUPPLY Qty: 50 2RF Rx Instructions: As directed for Victoza fluticasone propion-salmeterol [Advair Diskus] 250-50 mcg/dose blister with device 1 inh inhalation BID Qty: 60 5RF citalopram 40 mg tablet 40 mg PO QDAY@0400 Qty: 90 0RF albuterol sulfate [ProAir HFA] 90 mcg/actuation HFA aerosol inhaler 2 puff INHALATION Q6H PRN (Reason: shortness of breath or wheezing) Qty: 8.5 5RF gabapentin 300 mg capsule See Rx Instructions .ROUTE .COMPLEX Qty: 120 0RF Dose Instruction: TAKE 1 CAPSULE BY MOUTH AT 1:00AM, TAKE 1 CAPSULE AT NOON, AND TAKE 1 CAPSULE EVERY DAY AT BEDTIME Rx Instructions: TAKE 1 CAPSULE BY MOUTH AT 1:00AM, TAKE 1 CAPSULE AT NOON, AND TAKE 1 CAPSULE EVERY DAY AT BEDTIME (DME) pen needle, diabetic [BD Ultra-Fine Micro Pen Needle] 32 gauge x 1/4 needle See Rx Instructions .Route Qty: 100 11RF Rx Instructions: USE DIRECTED FOR VICTOZA tramadol-acetaminophen 37.5-325 mg tablet 1 tab PO QDAY@0400 PRN (Reason: pain) Qty: 30 1RF Rx Instructions: Must last 30 days aripiprazole [Abilify] 2 mg tablet 2 mg PO DAILY Rx Instructions: TAKE 1 TABLET BY MOUTH DAILY AT 4 AM fluticasone propionate [Flonase Allergy Relief] 50 mcg/actuation sp ray,suspension 2 spray intranasal DAILY PRN (Reason: Shortness Of Breath) Rx Instructions: administer into each nostril potassium chloride 40 mEq/15 mL liquid 40 meq PO DAILY Qty: 473 0RF hydrocodone-acetaminophen 5-325 mg tablet 1 tab PO Q6H PRN (Reason: pain) Qty: 28 0RF Discharge Orders: Discharge ED (Routine); Ordered 01/25/22 Ordered By: Rosenda Grayson Referrals: Trudy Cason DO [Primary Care Provider] - Patient Instructions: Opioid Safety Activity Restrictions/Additional Instructions: Please follow-up with Dr. Boles in the morning at your currently scheduled appointment. Coding Level of Care Code ED Cell Tender Helper for Chg Fwd Exam Detailed
--- NOTE | 2022-01-25 21:38 | XRR_ITS ---
PROCEDURE INFORMATION: Exam: XR Abdomen Exam date and time: 01/25/2022 9:44 PM Age: 61 years old Clinical indication: Other: Peg tube leaking; Prior surgery; Surgery date: 3-7 days post-operative; Surgery type: Peg tube placed on 01/19/2022. Gb; Patient HX: Peg tube has started leaking. ; Additional info: J tube placement, gastrografin TECHNIQUE: Imaging protocol: Radiologic exam of the abdomen. Views: Frontal supine view of the abdomen. 1 View. COMPARISON: CT chest abd pel w con* 01/06/2022 12:34 PM FINDINGS: Tubes, catheters and devices: Percutaneous gastric tube tip seen in the region of the small bowel with contrast in the small bowel without free extravasation. Gastrointestinal tract: Normal. No bowel dilation. Bones/joints: Unremarkable. XR/XR KUB [id number] IMPRESSION: Percutaneous gastric tube tip seen in the region of the small bowel with contrast in the small bowel without free extravasation.
[2022-01-25] MEDS: diatrizoate meglumine 120 mL Sol PO (21:52)
== END 2022-01-25 22:40 | disposition home or self-care (01) ==
PROVIDERS: Emergency Provider Physician Assistant; PCP Family Medicine
DX: K94.19 Other complications of enterostomy (principal); F17.210 Nicotine dependence, cigarettes, uncomplicated; I10 Essential (primary) hypertension; J44.9 Chronic obstructive pulmonary disease, unspecified; Z85.01 Personal history of malignant neoplasm of esophagus; E11.9 Type 2 diabetes mellitus without complications
CPT/HCPCS: 74018; 99283; Q9963

== ENCOUNTER → 2022-01-26 08:54 | Outpatient (BNVA) | payer MEDICARE, SELFPAY | PROVIDERS: PCP Family Medicine; Visit Provider Surgery | DX: Z98.890 Other specified postprocedural states (principal); K94.13 Enterostomy malfunction | CPT/HCPCS: 99024 ==

== ENCOUNTER → 2022-02-04 09:06 | Outpatient (BNVA) | payer MEDICARE, MEDICAID, SELFPAY | PROVIDERS: PCP Family Medicine; Visit Provider Family Medicine | DX: E87.6 Hypokalemia (principal) | CPT/HCPCS: 80048 ==

== ENCOUNTER 2022-02-05 10:11 | Emergency (ER) | payer MEDICARE, MEDICAID, SELFPAY ==
[2022-02-05 10:14] VITALS: BP 110/75; PULSE 103; RESP 18; TEMP 36.4; O2SAT 98
--- NOTE | 2022-02-05 11:18 | ECG_ITS ---
[facility] Date: 2022-02-05 Pat Name: Oiv Jeronimo Department: Room: Gender: Male [employer]ed [employer] Photographer: : 1960 Requested By: Jose Angel Hebert Order Number: [id number] Julita MD: Neymar Pollard M.D. Measurements Intervals [place] Rate: 82 P: 70 ID: [id number] QRS: -46 QRSD: 101 T: 62 QT: 377 QTc: 442 Interpretive Statements SINUS RHYTHM LEFT AXIS DEVIATION [QRS AXIS < -30] Compared to ECG 01/06/2022 15:08:05 Left-axis deviation now present Electronically Signed On 02-06-2022 14:33:12 CDT by Neymar Pollard M.D. [email or web address]
--- NOTE | 2022-02-05 11:18 | W.ED.WEAKNES ---
HPI - Weakness General: Chief complaint: Weakness Stated complaint: weakness Time Seen by Provider: 02/05/22 10:22 Source: patient Mode of arrival: ambulatory History of Present Illness: 61-year-old male was recently diagnosed with esophageal cancer he had distal esophageal obstruction had jejunostomy tube placed. He has had significant nausea. He is not had any vomiting has not had any hematochezia melena hematemesis coffee-ground emesis is a bilious like drainage from his jejunostomy tube he is usually getting enteral nutrition but they recently ran out and he has had changed to a different form. He is extremely nauseous today patient is type I diabetic his blood glucose on presentation is 101. He has generally been very weak he denies any abdominal pain or chest pain. MD Complaint: generalized weakness Onset (ago): week(s) Duration: progressively worsening Location: generalized Migration: none Severity: moderate Relieving factors: none Exacerbating factors: none Context: recent illness (Recently diagnosed esophageal cancer) Associated symptoms: Reports decreased appetite; Denies chest pain, chills, confusion, melena, diaphoresis, dysuria, easy bruising, fever(s), headache(s), myalgias, nausea, rash, short of breath, syncope or vomiting Review of Systems Const: Denies: fever(s), chills or diaphoresis ENMT: Denies: throat pain, ear or mastoid pain, nasal discharge or nasal congestion Card: Denies: chest pain or syncope Resp: Denies: dyspnea, productive cough or non-productive cough GI: Denies: abdominal pain, nausea, vomiting or melena : Denies: dysuria Skin/Breast: Denies: rash or pruritus Neuro: Denies: headache(s) or confusion Uday/Lymph: Denies: easy bruising PFS ED PFSH: Medical History Benign essential HTN COPD (chronic obstructive pulmonary disease) Depression Esophageal cancer GERD (gastroesophageal reflux disease) Hypokalemia Low testosterone EMMANUEL (obstructive sleep apnea) Type 2 diabetes mellitus, without long-term current use of insulin Surgical History History of cholecystectomy History of esophagogastroduodenoscopy (EGD) (01/07/22) Family History Father Cancer Lung Hyperlipidemia Brother Lung disease COPD Other Alzheimer disease Hypertension Denies family history of Diabetes CAD (coronary artery disease) Clotting disorder Dementia Psychiatric illness Chronic kidney disease (CKD) Suicide Anesthesia complication Bleeding disorder Stroke Social History Smoking and tobacco status: current every day smoker cigarettes Packs smoked per day: 1 Alcohol intake: former Physical Exam Const: COMMON NORMALS: no acute distress GENERAL APPEARANCE: cooperative and comfortable ORIENTATION/CONSCIOUSNESS: Yes awake, Yes oriented to person, Yes oriented to place and Yes oriented to time HENMT: COMMON NORMALS: normocephalic, atraumatic and hearing grossly normal bilaterally HEAD & SCALP: normocephalic and atraumatic Resp: COMMON NORMALS: normal respiratory effort, No retractions, No use of accessory muscles and clear to auscultation bilaterally AUSCULTATION: clear to auscultation bilaterally Cardio: COMMON NORMALS: regular rate, regular rhythm and No murmurs present (Cardio) RATE: regular rate RHYTHM: regular rhythm GI: COMMON NORMALS: Soft to palpation and No hepatosplenomegaly present AUSCULTATION: Yes normoactive bowel sounds PALPATION: Yes Soft to palpation, No Tenderness to palpation present (GI), No Guarding due to palpation present (GI) and Yes No hepatosplenomegaly present OTHER: Jejunostomy tube in place no drainage from around the tube there is some bilious like drainage refluxing from the tube no bloody discharge. Extremity: COMMON NORMALS: normal to inspection, capillary refill normal, no clubbing, cyanosis or edema, no calf tenderness and no pedal edema Neuro: SENSORIUM/ORIENTATION: Yes oriented to person, Yes oriented to place and Yes oriented to time Skin: COMMON NORMALS: no rashes or lesions noted GENERAL SKIN EXAM: no rashes or lesions noted Course Vital Signs: Vital signs: Vital Signs Temperature 97.5 F L 02/05/22 10:14 Pulse Rate 96 02/05/22 13:28 Respiratory Rate 20 H 02/05/22 13:28 Blood Pressure 117/78 02/05/22 13:28 Pulse Oximetry 97 02/05/22 13:28 Oxygen Delivery Me thod 02/05/22 13:00 MDM - Weakness Medical Decision Making Improved after fluids and antiemetics. Encourage increased free water in the tube. Follow-up as previously scheduled with surgery and oncology Medical Records I reviewed the patient's medical records. Lab Data I reviewed the patient's lab results. : 02/05/22 11:16 02/05/22 11:16 Laboratory Results WBC 9.3 10^3/uL (4.0-10.0) 02/05/22 11:16 RBC 5.39 10^6/uL (4.1-5.3) H 02/05/22 11:16 Hgb 17.3 g/dL (11.7-16.6) H 02/05/22 11:16 Hct 50.5 % (42.0-52.0) 02/05/22 11:16 MCV 93.7 fl (80-94) 02/05/22 11:16 MCH 32.1 pg (28.0-34.0) 02/05/22 11:16 MCHC 34.3 g/dL (30.0-36.0) 02/05/22 11:16 RDW 14.1 % (12.1-15.1) 02/05/22 11:16 Plt Count 309 10^3/cmm (130-400) 02/05/22 11:16 MPV 9.7 fL (7.4-10.4) 02/05/22 11:16 Neut % (Auto) 70.5 % 02/05/22 11:16 Lymph % (Auto) 23.6 % 02/05/22 11:16 Humphreys % (Auto) 4.5 % 02/05/22 11:16 Eos % (Auto) 0.6 % 02/05/22 11:16 Baso % (Auto) 0.5 % 02/05/22 11:16 Neut # (Auto) 6.55 10^3/uL (1.8-7.7) 02/05/22 11:16 Lymph # (Auto) 2.2 10^3/uL (0.8-4.8) 02/05/22 11:16 Humphreys # (Auto) 0.4 10^3/uL (0.2-0.9) 02/05/22 11:16 Eos # (Auto) 0.1 10^3/uL (0.0-0.8) 02/05/22 11:16 Baso # (Auto) 0.1 10^3/uL (0.0-0.1) 02/05/22 11:16 Nucleated RBC % (auto) 0 % 02/05/22 11:16 Nucleated RBCs # 0.0 /100WBC 02/05/22 11:16 Sodium 131 mmol/L (136-145) L 02/05/22 11:16 Potassium 3.8 mmol/L (3.5-5.1) 02/05/22 11:16 Chloride 96 mmol/L (98-107) L 02/05/22 11:16 Carbon Dioxide 22 mmol/L (22-29) 02/05/22 11:16 Anion Gap 16.8 (5-19) 02/05/22 11:16 BUN 16 mg/dL (6-20) 02/05/22 11:16 Creatinine 0.9 mg/dL (0.7-1.2) 02/05/22 11:16 GFR Calculation 86.4 mL/min (90-130) L 02/05/22 11:16 Glucose 83 mg/dL (65-115) 02/05/22 11:16 POC Glucose 105 mg/dL (70-110) 02/05/22 10:20 Calculated Osmolality 272 mOsm/kg (285-295) L 02/05/22 11:16 Calcium 9.1 mg/dL (8.5-10.5) 02/05/22 11:16 Total Bilirubin 0.5 mg/dL (0.15-1.2) 02/05/22 11:16 AST 12 U/L (0-40) 02/05/22 11:16 ALT 11 U/L (0-41) 02/05/22 11:16 Alkaline Phosphatase 102 U/L (40-130) 02/05/22 11:16 Total Protein 6.9 g/dL (6.6-8.7) 02/05/22 11:16 Albumin 3.4 g/dL (3.5-5.2) L 02/05/22 11:16 Globulin 3.5 g/dL (1.3-4.6) 02/05/22 11:16 Lipase 16 U/L (13-60) 02/05/22 11:16 Urine Color Yellow (Yellow) 02/05/22 12:22 Urine Appearance Clear (CLEAR) 02/05/22 12:22 Urine pH 7 (5-7) 02/05/22 12:22 Ur Specific [place] 1.010 (1.005-1.030) 02/05/22 12:22 Urine Protein Neg (Negative) 02/05/22 12:22 Urine Glucose (UA) Norm (Normal) 02/05/22 12:22 Urine Ketones 1+ (Negative) H 02/05/22 12:22 Urine Blood Neg (Negative) 02/05/22 12:22 Urine Nitrate Negative (Negative) 02/05/22 12:22 Urine Bilirubin Neg (Negative) 02/05/22 12:22 Urine Urobilinogen 1 mg/dL (Negative) H 02/05/22 12:22 Ur Leukocyte Esterase Trace (Negative) H 02/05/22 12:22 Urine RBC 0-4 /hpf (0-2) H 02/05/22 12:22 Urine WBC 0-4 /hpf (0-5) H 02/05/22 12:22 Ur Squamous Epith Cells 0-4 /hpf (0-5) H 02/05/22 12:22 Amorphous Sediment Not Reportable 02/05/22 12:22 Urine Bacteria None /hpf (NONE) 02/05/22 12:22 Hyaline Casts 0-4 /lpf H 02/05/22 12:22 Urine Mucus 1+ /hpf 02/05/22 12:22 Discharge Plan Discharge Patient Disposition: Home Clinical Impression: Dehydration, Esophageal cancer Condition: Stable Prescriptions: No Action Spiriva with HandiHaler 18 mcg capsule, w/inhalation device 1 cap INHALATION QDAY@1400 90 Days Qty: 90 1RF ondansetron 4 mg tablet,disintegrating 4 mg PO Q8H PRN (Reason: nausea and vomiting) 10 Days Qty: 30 5RF hydrocodone-acetaminophen 5-325 mg tablet 1 tab PO BID PRN (Reason: pain) 30 Days Qty: 60 0RF potassium chloride 40 mEq/15 mL liquid 40 meq PO DAILY Qty: 473 0RF pantoprazole [Protonix] 40 mg tablet,delayed release (DR/EC) 40 mg PO BID 90 Days Qty: 180 0RF (DME) pen needle, diabetic [Comfort EZ Pen [place]] 32 gauge x 1/4 needle See Rx Instructions .ROUTE .MEDSUPPLY Qty: 50 2RF Rx Instructions: As directed for Victoza fluticasone propion-salmeterol [Advair Diskus] 250-50 mcg/dose blister with device 1 inh inhalation BID Qty: 60 5RF albuterol sulfate [ProAir HFA] 90 mcg/actuation HFA aerosol inhaler 2 puff INHALATION Q6H PRN (Reason: shortness of breath or wheezing) Qty: 8.5 5RF (DME) pen needle, diabetic [BD Ultra-Fine Micro Pen Needle] 32 gauge x 1/4 needle See Rx Instructions .Route Qty: 100 11RF Rx Instructions: USE DIRECTED FOR VICTOZA aripiprazole [Abilify] 2 mg tablet 2 mg PO DAILY Qty: 90 0RF Rx Instructions: TAKE 1 TABLET BY MOUTH DAILY AT 4 AM gabapentin 300 mg capsule See Rx Instructions .ROUTE .COMPLEX Qty: 120 2RF Dose Instruction: TAKE 1 CAPSULE BY MOUTH AT 1:00AM, TAKE 1 CAPSULE AT NOON, AND TAKE 1 CAPSULE EVERY DAY AT BEDTIME Rx Instructions: TAKE 1 CAPSULE BY MOUTH AT 1:00AM, TAKE 1 CAPSULE AT NOON, AND TAKE 1 CAPSULE EVERY DAY AT BEDTIME citalopram 40 mg tablet 40 mg PO QDAY@0400 Qty: 90 0RF (DME) DuoDERM CGF Border Dressing 2 1/2 X 2 1/2 bandage See Rx Instructions .Route Qty: 5 3RF Rx Instructions: As directed fluticasone propionate [Flonase Allergy Relief] 50 mcg/actuation spray,suspension 2 spray intranasal DAILY PRN (Reason: Shortness Of Breath) Rx Instructions: administer into each nostril Discharge Orders: Discharge ED (Routine); Ordered 02/05/22 Ordered By: Jsoe Angel Myles Referrals: Trudy Cason DO [Primary Care Provider] - Discharge Diet: Usual diet Discharge Activity: Increase activity as tolerated Activity Restrictions/Additional Instructions: Increase free water administered via the jejunal tube. Follow-up with your oncology team within the next week. Coding Level of Care Code ED Aboriginal Liaison Officer for Colleen Chaidez
[2022-02-05 11:26] LABS: Basophils # 0.1 10^3/uL (0.0-0.1); Basophils % 0.5 %; Eosinophils # 0.1 10^3/uL (0.0-0.8); Eosinophils % 0.6 %; Hematocrit 50.5 % (42.0-52.0); Hemoglobin 17.3 g/dL (11.7-16.6); Lymphocytes # 2.2 10^3/uL (0.8-4.8); Lymphocytes % 23.6 %; Mean Corpuscular HGB Conc 34.3 g/dL (30.0-36.0); Mean Corpuscular Hemoglobin 32.1 pg (28.0-34.0); Mean Corpuscular Volume 93.7 fl (80-94); Mean Platelet Volume 9.7 fL (7.4-10.4); Monocytes # 0.4 10^3/uL (0.2-0.9); Monocytes % 4.5 %; Neutrophils # 6.55 10^3/uL (1.8-7.7); Neutrophils % 70.5 %; Nucleated Red Blood Cells % 0 %; Platelet Count 309 10^3/cmm (130-400); Red Blood Count 5.39 10^6/uL (4.1-5.3); Red Cell Distribution Width 14.1 % (12.1-15.1); White Blood Count 9.3 10^3/uL (4.0-10.0)
[2022-02-05] MEDS: ondansetron 2 mg/ML SDV 2 mL 4 MG IVP (11:30)
[2022-02-05] MEDS: sodium chloride 0.9% 1,000 ML 999 ML IV ×2 (11:30→13:03)
[2022-02-05 11:36] VITALS: BP 116/73; PULSE 80; RESP 11; O2SAT 97
[2022-02-05 11:37] LABS: Alanine Aminotransferase 11 U/L (0-41); Albumin Level 3.4 g/dL (3.5-5.2); Alkaline Phosphatase 102 U/L (40-130); Anion Gap 16.8 (5-19); Aspartate Amino Transferase 12 U/L (0-40); Blood Urea Nitrogen 16 mg/dL (6-20); Calcium 9.1 mg/dL (8.5-10.5); Carbon Dioxide 22 mmol/L (22-29); Chloride 96 mmol/L (98-107); Globulin 3.5 g/dL (1.3-4.6); Glomerular Filtration Rate 86.4 mL/min (90-130); Glucose 83 mg/dL (65-115); Lipase 16 U/L (13-60); Osmolality Calculated 272 mOsm/kg (285-295); Potassium 3.8 mmol/L (3.5-5.1); Sodium 131 mmol/L (136-145); Total Bilirubin 0.5 mg/dL (0.15-1.2); Total Protein 6.9 g/dL (6.6-8.7)
[2022-02-05 13:00] VITALS: BP 117/78; PULSE 91; RESP 21; O2SAT 96
[2022-02-05 13:09] LABS: Bilirubin Urine Neg (Negative); Blood Urine Neg (Negative); Glucose Urine UA Norm (Normal); Ketones Urine 1+ (Negative); Nitrate Urine Negative (Negative); Protein Urine Neg (Negative); Urine Appearance Clear (CLEAR); Urine Color Yellow (Yellow); pH Urine 7 (5-7)
[2022-02-05 13:10] LABS: Add Urine Microscopic? YES; Leukocyte Esterase Urine Trace (Negative); Urobilinogen Urine 1 mg/dL (Negative)
[2022-02-05 13:21] LABS: Add Urine Culture? No; Hyaline Casts Urine 0-4 /lpf; Mucus Urine 1+ /hpf; RBC Urine 0-4 /hpf (0-2); Squamous Epithelial Cell Urine 0-4 /hpf (0-5); WBC Urine 0-4 /hpf (0-5)
[2022-02-05 13:28] VITALS: BP 117/78; PULSE 96; RESP 20; O2SAT 97
[2022-02-09 08:05] LABS: Glucose Point of Care 105 mg/dL (70-110)
== END 2022-02-05 13:30 | disposition home or self-care (01) ==
PROVIDERS: Emergency Provider Family Medicine; PCP Family Medicine
DX: E86.0 Dehydration (principal); C15.9 Malignant neoplasm of esophagus, unspecified; F17.210 Nicotine dependence, cigarettes, uncomplicated; I10 Essential (primary) hypertension; J44.9 Chronic obstructive pulmonary disease, unspecified; E11.9 Type 2 diabetes mellitus without complications
CPT/HCPCS: 36416; 80053; 81001; 82962; 83690; 85025; 93005; 96361; 96374; 99284; J2405; J7030

== ENCOUNTER 2022-02-26 07:40 | Oncology outpatient (recurring) (ONCR) | payer MEDICARE, MEDICAID, SELFPAY | END 2022-02-27 23:59 | disposition home or self-care (01) | PROVIDERS: PCP Family Medicine; Visit Provider Internal Medicine Medical Oncology | DX: Z53.9 Procedure and treatment not carried out, unspecified reason (principal) | CPT/HCPCS: 99024 ==

== ENCOUNTER 2022-03-04 17:20 | Observation (INO) | payer MEDICARE, MEDICAID, SELFPAY ==
--- NOTE | 2022-03-04 17:40 | P.HP_ITS ---
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 Patient himself denied of having any complaints other than weakness which he thought was secondary to poor oral intake. Usually he takes only some sips of water by his mouth and most of his nutrition is through the J-tube with protein shakes. He states previously he was having issues with leaking around the J-tube but that has been decreasing as well. He has been dressing around the J tube by himself. Drainage has been minimal for last 2 days but prior to that on Wednesday he changed around 20 bandages for the patient. Denies any abdominal pain, nausea, vomiting. States he has not had a bowel movement. Denies any hematochezia or melena. Review of Systems General: Reports: 10 or more systems reviewed and unremarkable except in HPI and below Const: Denies: fever(s), chills, body aches, change in appetite, change in weight, malaise, night sweats, diaphoresis, change in sleep pattern, daytime sleepiness or snoring Eyes: Denies: change in vision, blurry vision, photophobia, eye discomfort or eye discharge ENMT: Denies: throat pain, enlarged tonsils, hoarseness, mouth pain, oral sores, dry mouth, tinnitus, nasal congestion or post nasal drip Card: Denies: chest pain, palpitations, irregular heart rhythm, edema, swelling of feet/ankles, lightheadedness, syncope, pre-syncope, dyspnea on exertion, orthopnea, leg pain with exertion or acrocyanosis Resp: Denies: dyspnea, productive cough, non-productive cough, wheezing, stridor, pain on inspiration, change in phlegm color, hemoptysis or chest congestion GI: Denies: abdominal pain, nausea, vomiting, hematemesis, coffee ground emesis, dysphagia, heartburn, diarrhea, constipation, bloating, GI cramping, change in bowel habits, pain on defecation, hematochezia or melena : Denies: flank pain, difficulty urinating, dysuria, urinary frequency, urinary urgency, urinary hesitancy, urinary dribbling, difficulty starting urination, change in urine stream, nocturia or hematuria Musc: Denies: neck pain, back pain, extremity pain, joint pain, joint swelling, joint redness, joint stiffness or limited range of motion Neuro: Denies: headache(s), numbness in extremities, weakness in extremities, sensory changes, lack of coordination, difficulty walking, frequent falls, di zziness, vertigo, confusion, Slurred speech present, difficulty communicating thoughts or seizure-like activity Psych: Denies: anxiety, depression, mood swings, panic attacks, hopelessness or irritability Endo: Denies: polyuria, polydipsia, tired all the time, cold intolerance, excessive sweating, flushing or heat intolerance Uday/Lymph: Denies: easy bruising or easy bleeding All/Imm: Denies: tongue swelling, facial swelling or acute wheezing Medications/Allergies Home Medications Medication Instructions Recorded Confirmed Last Taken Type pen needle, diabetic 32 gauge x #50 ea 05/21/20 03/05/22 Unknown Rx 1/4 (Comfort EZ Pen [place]) fluticasone 250 mcg-salmeterol 50 1 inh inhalation BID #60 ea 09/01/21 03/05/22 03/04/22 Rx mcg/dose blistr powdr for inhalation (Advair Diskus) pen needle, diabetic 32 gauge x #100 ea 12/26/21 03/05/22 Unknown Rx 1/4 (BD Ultra-Fine Micro Pen Needle) fluticasone propionate 50 2 spray intranasal DAILY PRN 01/06/22 03/05/22 01/18/22 History mcg/actuation nasal Allergy Symptoms spray,suspension (Flonase Allergy Relief) gabapentin 300 mg capsule See Rx Instructions .Route 01/27/22 03/05/22 Unknown Rx .COMPLEX #120 caps hydrocolloid dressing 2 1/2 X 2 #5 ea 01/30/22 03/05/22 Unknown Rx 1/2 (DuoDERM CGF Adhesive Border Dressing) ondansetron 4 mg disintegrating 4 mg PO Q8H PRN nausea and 02/06/22 03/05/22 Unknown Rx tablet vomiting 10 days #30 tabs albuterol sulfate 90 mcg/actuation 2 puff inhalation Q6H PRN 02/25/22 03/05/22 Unknown Rx aerosol inhaler (ProAir HFA) shortness of breath or wheezing #8.5 grams carbidopa 10 mg-levodopa 100 mg 1 tab PO TID #90 tabs 02/27/22 03/05/22 Unknown Rx tablet (Sinemet) hydrocodone 5 mg-acetaminophen 325 1 tab PO TID PRN pain 30 days #90 02/27/22 03/05/22 Unknown Rx mg tablet tabs testosterone cypionate 200 mg/mL 300 mg (1.5 mL) IM .EVERY 2 WEEKS 02/27/22 03/05/22 02/28/22 Rx intramuscular oil 30 days #3 mL lorazepam 1 mg tablet 0.5 - 1 mg PO Q6H PRN Severe 03/03/22 03/05/22 Unknown Rx Nausea #30 tabs prochlorperazine maleate 10 mg 10 mg PO Q4H PRN Mild Nausea #30 03/03/22 03/05/22 Unknown Rx tablet (Compazine) tabs pen needle, diabetic 32 gauge x 03/04/22 03/05/22 Unknown History (BD Meredith 2nd Gen Pen Needle) aripiprazole 2 mg tablet 2 mg PO DAILY@04 03/05/22 03/05/22 Unknown History cholestyramine-aspartame 4 gram See Rx Instructions .Route .COMPLEX 03/05/22 03/05/22 Unknown History oral powder (Cholestyramine Light) citalopram 40 mg tablet 40 mg PO DAILY@04 03/05/22 03/05/22 Unknown History multivitamin 1 tab PO DAILY 03/05/22 03/05/22 Unknown History pantoprazole 40 mg tablet,delayed 40 mg PO BID 03/05/22 03/05/22 Unknown History release potassium chloride 40 mEq/15 mL 40 meq PO QAM 03/05/22 03/05/22 Unknown History oral liquid sucralfate 1 gram tablet 1 g PO Q6H PRN Acid Reflux 03/05/22 03/05/22 Unknown History tiotropium bromide 18 mcg capsule 1 cap inhalation DAILY@04 03/05/22 03/05/22 Unknown History with inhalation device (Spiriva with HandiHaler) Allergies Allergy/AdvReac Type Severity Reaction Status Date / Time No Known Allergies Allergy Verified 03/05/22 10:08 PFSH Acute PFSH: Medical History Acute eczema of hand Acute kidney injury 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 Benign essential HTN COPD (chronic obstructive pulmonary disease) Depression Esophageal cancer GERD (gastroesophageal reflux disease) History of jejunostomy tube placement Hypokalemia Low testosterone EMMANUEL (obstructive sleep apnea) Type 2 diabetes mellitus, without long-term current use of insulin Surgical History History of cholecystectomy History of esophagogastroduodenoscopy (EGD) (01/07/22) Family History Father Cancer Lung Hyperlipidemia Brother Lung disease COPD Other Alzheimer disease Hypertension Denies family history of Diabetes CAD (coronary artery disease) Clotting disorder Dementia Psychiatric illness Chronic kidney disease (CKD) Suicide Anesthesia complication Bleeding disorder Stroke Social History Smoking and tobacco status: current every day smoker cigarettes Packs smoked per day: 1 Alcohol intake: former Physical Exam Narrative: General: No acute distress, AO x3 HEENT: PERRLA, pupils bilaterally equal and reactive Chest: Normal vesicular breath sounds, no added sounds, equal good air entry bilaterally CVS: S1-S2 regular, no murmurs, no tachycardia, no gallops, no rubs Abdomen: Soft, nontender, no organomegaly, bowel sounds present Neuro: No focal deficits, no facial deformity, AO x3, power 5/5 in all limbs Data : 03/05/22 04:14 03/05/22 04:14 Other Labs: Labs done as an outpatient today. Hemoglobin of 6.7, white count of 10, platelet count of 365, MCV of 98, MCH of 32.8, reticulocyte count of 5.6, haptoglobin of 379, sodium of 132, potassium of 5.1, chloride of 96, BUN of 64, creatinine of 1.7, iron panel showing iron of 40, TIBC of 243, saturation of 16.4, serum iron of 203, AST/ALT of 9/> 5, LDH of 157. Most recent A1c in October 2021 5.1. A&P Assessment and plan (1) Anemia: Baseline hemoglobin around 17. 6.7 as an outpatient. Ordered 2 units of blood transfusion. Reticulocyte count, haptoglobin, iron panel appreciated. Will check vitamin B12 and folate levels. Target hemoglobin over 8. Will transfuse accordingly. Protonix 40 mg IV twice daily, Carafate before meals and at bedtime. N.p.o. except medications for now. (2) GI bleed: High likelihood of GI bleed given partially obstructive esophageal adenocarcinoma. Cannot rule out localized sloughing. Will consult patient's outpatient surgeon for a possible endoscopy though it is going to be difficult given partially obstructing nature of the cancer. On previous endoscopy in December 2021 scope could not be crossed over beyond GE junction. Care discussed in detail with Dr. Boles. As per him patient needs laser fulguration and possible esophageal stent. Most likely need to be transferred to a higher center for further care. (3) Acute kidney injury: Could be secondary dehydration with a possible GI bleed. Medical reconciliation for nephrotoxic drugs. Baseline creatinine less than 1. Does have history of JUAN F in the past with creatinine worsening up to 1.8. Check urinalysis, urine lites, urine creatinine. Normal saline at 75 cc/h after blood transfusion. Monitor BMP daily. 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 Follows up with Dr. Thurman as an outpatient. (5) History of jejunostomy tube placement: Follows up with Dr. Boles as an outpatient. History of leak around the jejunostomy tube. (6) Benign essential HTN: Goal pressure less than 140/90 MNG. Will restart medication as per goal. (7) COPD (chronic obstructive pulmonary disease): Not in exacerbation. Continue with home inhalers. DuoNebs as needed. Ox supplementation keeping saturation over 88%. Qualifiers: COPD type: emphysema Emphysema type: panlobular Qualified Code(s): J43.1 - Panlobular emphysema (8) Type 2 diabetes mellitus, without long-term current use of insulin: Recent A1c in October was 5.1. Hypoglycemia protocol. We will hold off on starting on insulin sliding scale. Plan Analgesia: Continue home dose of [place] Glycemic control: Not needed Nutrition: N.p.o. except medications CODE STATUS: PUD prophylaxis: Protonix 40 mg twice daily DVT prophylaxis: SCDs. No medical prophylaxis given possible GI bleed Discharge planning: Home once medically cleared [facility] with telemetry. This documentation was created by [employer] boat camp operator software. Every effort was made to ensure accuracy of boat camp operator. Any obvious errors or omissions should be clarified with the author of the document. Attestations Medical Necessity Statement*: Requires admission for more than 2 midnights for further evaluation and management of anemia in setting of malignant partially obstructing adenocarcinoma of last third of esophagus while GI bleed is ruled out. 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
[2022-03-04 18:28] LABS: Vitamin B12 467 pg/mL (232-1245)
[2022-03-04 18:56] LABS: Folate Level 6.9 ng/mL (4.5-32.2)
[2022-03-04] MEDS: sucralfate 1 gm/10 mL Oral Liq UDC PO ×2 (18:56→21:03)
[2022-03-04] MEDS: pantoprazole 40 mg SDV IVP (18:56)
[2022-03-04 19:42] VITALS: BP 91/53; PULSE 87; RESP 18; TEMP 36.7; O2SAT 98
[2022-03-04 20:15] VITALS: PULSE 86; RESP 16; O2SAT 98
[2022-03-04 20:40] LABS: Add Urine Microscopic? NO; Charge for UA Resulting for Rev
[2022-03-04 20:49] LABS: Bilirubin Urine Neg (Negative); Blood Urine Neg (Negative); Glucose Urine UA Norm (Normal); Ketones Urine Negative (Negative); Leukocyte Esterase Urine Negative (Negative); Nitrate Urine Negative (Negative); Protein Urine Neg (Negative); Urine Appearance Clear (CLEAR); Urine Color Yellow (Yellow); Urobilinogen Urine Norm (Negative); pH Urine 5 (5-7)
[2022-03-04 21:02] LABS: Potassium, Radom Urine 46 mmol/L; Urine Creatinine 90 mg/dL (39-259); Urine Random Chloride 36 mmol/L
[2022-03-04 21:15] LABS: Urine Random Sodium 11 mmol/L
[2022-03-04 23:13] VITALS: BP 90/43; PULSE 93; RESP 18; TEMP 37.2; O2SAT 98
[2022-03-04] MEDS: sodium chloride 0.9% (100 ml) 100 ML 25 ML (23:21)
[2022-03-04] MEDS: gabapentin 300 mg Capsule PO (23:21)
[2022-03-04] MEDS: HYDROcodone-acetaminophen 5-325 mg Tablet 1 TAB PO (23:23)
[2022-03-04 23:30] VITALS: BP 93/52; PULSE 91; RESP 16; TEMP 36.7
[2022-03-04 23:45] VITALS: BP 89/52; PULSE 92; RESP 16; TEMP 36.7; O2SAT 97
[2022-03-05] VITALS (12 sets, daily range): BP systolic 83–100; BP diastolic 46–63; PULSE 77–98; RESP 16–20; TEMP 36.4–37.4; O2SAT 94–99
[2022-03-05 04:40] LABS: Basophils % 0.4 %; Eosinophils % 0.3 %; Hematocrit 22.6 % (42.0-52.0); Hemoglobin 7.3 g/dL (11.7-16.6); Lymphocytes # 1.9 10^3/uL (0.8-4.8); Lymphocytes % 24.4 %; Mean Corpuscular HGB Conc 32.3 g/dL (30.0-36.0); Mean Corpuscular Hemoglobin 31.5 pg (28.0-34.0); Mean Corpuscular Volume 97.4 fl (80-94); Mean Platelet Volume 9.9 fL (7.4-10.4); Monocytes # 0.5 10^3/uL (0.2-0.9); Neutrophils # 5.11 10^3/uL (1.8-7.7); Neutrophils % 67.5 %; Nucleated Red Blood Cells % 0 %; Platelet Count 311 10^3/cmm (130-400); Red Blood Count 2.32 10^6/uL (4.1-5.3); Red Cell Distribution Width 15.7 % (12.1-15.1); White Blood Count 7.6 10^3/uL (4.0-10.0)
[2022-03-05 05:04] LABS: Alanine Aminotransferase < 5 U/L (0-41); Albumin Level 2.9 g/dL (3.5-5.2); Alkaline Phosphatase 57 U/L (40-130); Anion Gap 16.2 (5-19); Aspartate Amino Transferase 9 U/L (0-40); Blood Urea Nitrogen 40 mg/dL (6-20); Calcium 8.5 mg/dL (8.5-10.5); Carbon Dioxide 24 mmol/L (22-29); Chloride 99 mmol/L (98-107); Globulin 2.7 g/dL (1.3-4.6); Glucose 72 mg/dL (65-115); Magnesium 2.1 mg/dL (1.7-2.3); Osmolality Calculated 288 mOsm/kg (285-295); Phosphorus 3.2 mg/dL (2.5-4.5); Potassium 4.2 mmol/L (3.5-5.1); Sodium 135 mmol/L (136-145); Total Bilirubin 0.6 mg/dL (0.15-1.2); Total Protein 5.6 g/dL (6.6-8.7)
--- NOTE | 2022-03-05 06:15 | P.CONIM_ITS ---
Providers/Reason For Consult Consulting Physician/Specialty*: Alex Boles MD Reason for Consult*: Severe anemia Requesting Physician: Dr. Bañuelos Attending Physician: Nicolas Jaquez MD Primary Care Provider: Trudy Cason DO History of Present Illness History of Present Illness HPI 01/06/2022 Ms. Ovi Jeronimo is a pleasant 61 year old male presented to the emergency department of [facility] with history of dizziness and nonintentional weight loss patient does report history of dysphagia and has been progressive over the past few months to the extent that he started to have food stuck and then vomited thereafter.? No other associated symptoms.? Patient reports that he smokes and he used to drink before couple of years. Patient undergone a CT of the chest abdomen and pelvis that did show 1.? Distal esophageal wall thickening with extension into the fundus of the stomach. Differential includes esophagitis and neoplasm. Suspect neoplasm as there are several enlarged lymph nodes at the gastrohepatic ligament with the largest measuring 2.4 cm in diameter. 2.? Additional lobulated thickening extending into the fundus of the stomach with mild diffuse mucosal thickening of the stomach. 3.? Recommend upper endoscopy to evaluate the distal esophagus and the stomach. 4.? PET/CT may be helpful to evaluate the abnormal lymph nodes along the gastrohepatic ligament. There are smaller retroperitoneal lymph nodes. 5.? Indeterminate bilateral hilar lymph nodes with the largest measuring 12 mm on the LEFT. General surgery was consulted for potential diagnostic EGD.? Patient was seen and evaluated in the emergency department room #6 01/12/2022 Patient comes today after recent hospitalization for obstructive distal esophageal cancer to visit with me at the office as planned with repeat blood work that did show a serum albumin of 2.8, patient seems to be taking up to 7 cans of protein shakes daily per his description without issues, he feels better and he looks better.? The original plan was to perform a laparoscopic feeding jejunostomy and a port placement.? The patient can start neoadjuvant chemoradiation planned esophagectomy yet pending PET CT scan. patient denies any nausea or vomiting. 01/22/2022 Mr. Jeronimo comes today for follow-up status post; 1.? Placement of right subclavian vein PowerPort 2.? Fluoroscopic guidance and interpretation for placement of catheter 3.? Laparoscopic placement of feeding jejunostomy Patient had started his tube feeds and no issues with that, did have some concerns about the cleanliness of the incisions and taking care of his wounds which has been addressed during this clinical encounter. Interim history 01/26/2022 Patient comes today status post placement of feeding jejunostomy and he has been encountering leak for the past day or so which required him to go to the ER for further evaluation.? Patient reports he slept onto his left side and then started leaking.? Further work-up was done in the ER in the form of KUB with contrast via the feeding jejunostomy that did show no evidence of leak. Apparently after further history patient reports that he has been wiping around the feeding jejunostomy using get hand without gloves.? Also the skin has been excoriated particularly at the 3 to 9 o'clock position.? It does not seem that the environment that the patient does have at his trailer is appropriate enough for appropriate postsurgical care for the feeding jejunostomy.? Otherwise patient has been tolerating tube feeds. 01/29/2022 Patient comes today and continues to show some leak yet less than last time around the feeding jejunostomy.? Certainly the zinc oxide helped a lot with minimizing skin excoriation.? Apparently the patient whenever he ingests protein shakes p.o. likely there is some sort of backed up when it comes to the proximal segment of the jejunum to the balloon that backs pressure around the feeding jejunostomy.? Otherwise when the patient is receiving feeding tube through the feeding jejunostomy does not encounter drainage.? Patient denies any nausea vomiting fevers or chills.? Currently he did not start his chemoradiation yet Interim history 02/19/2022 Patient comes today with concern of minimal drainage around the J-tube.? He seems to be losing weight and has been having issues with dehydration recently.? Unfortunately he did not receive the prescription that I sent for DuoDERM to protect the skin surrounding the jejunostomy feeding tube and I was not aware of that.? He continues to put some zinc oxide cream but not on regular basis.? Continues to smoke unfortunately.? Does not seem that he started his treatment yet for esophageal cancer. 03/05/2022 in hospital consultation Patient was seen and evaluated by medical oncology yesterday and was found to have severe anemia, patient denies any hematemesis or hematochezia or bleeding from the feeding jejunostomy or around. Likely associated anemia with the tumor sloughing and associated with the patient's illness. Patient has been receiving most of his nutrition through the feeding jejunostomy and he is barely drinking water as likely his dysphagia is getting worse. Patient was admitted to the hospitalist service and general surgery was consulted for further evaluation. Patient describes that he did not start his chemotherapy or radiation yet. There was evidence for paraesophageal, mediastinal, retroperitoneal, and right supraclavicular lymph node involvement, and there are also 2 definite liver lesions which were felt to be consistent with metastases. Review of Systems General: Reports: 10 or more systems reviewed and unremarkable except in HPI and below Medications/Allergies Home Medications Medication Instructions Recorded Confirmed Last Taken Type pen needle, diabetic 32 gauge x #50 ea 05/21/20 03/05/22 Unknown Rx 1/4 (Comfort EZ Pen [place]) fluticasone 250 mcg-salmeterol 50 1 inh inhalation BID #60 ea 09/01/21 03/04/22 03/04/22 Rx mcg/dose blistr powdr for inhalation (Advair Diskus) pen needle, diabetic 32 gauge x #100 ea 12/26/21 03/05/22 Unknown Rx 1/4 (BD Ultra-Fine Micro Pen Needle) fluticasone propionate 50 2 spray intranasal DAILY PRN 01/06/22 03/05/22 0 01/18/22 History mcg/actuation nasal Allergy Symptoms spray,suspension (Flonase Allergy Relief) gabapentin 300 mg capsule See Rx Instructions .Route 01/27/22 03/05/22 Unknown Rx .COMPLEX #120 caps hydrocolloid dressing 2 1/2 X 2 #5 ea 01/30/22 03/05/22 Unknown Rx 1/2 (DuoDERM CGF Adhesive Border Dressing) ondansetron 4 mg disintegrating 4 mg PO Q8H PRN nausea and 02/06/22 03/04/22 Unknown Rx tablet vomiting 10 days #30 tabs albuterol sulfate 90 mcg/actuation 2 puff inhalation Q6H PRN 02/25/22 03/05/22 Unknown Rx aerosol inhaler (ProAir HFA) shortness of breath or wheezing #8.5 grams carbidopa 10 mg-levodopa 100 mg 1 tab PO TID #90 tabs 02/27/22 03/05/22 Unknown Rx tablet (Sinemet) hydrocodone 5 mg-acetaminophen 325 1 tab PO TID PRN pain 30 days #90 02/27/22 03/05/22 Unknown Rx mg tablet tabs testosterone cypionate 200 mg/mL 300 mg (1.5 mL) IM .EVERY 2 WEEKS 02/27/22 03/04/22 02/28/22 Rx intramuscular oil 30 days #3 mL lorazepam 1 mg tablet 0.5 - 1 mg PO Q6H PRN Severe 03/03/22 03/04/22 Unknown Rx Nausea #30 tabs prochlorperazine maleate 10 mg 10 mg PO Q4H PRN Mild Nausea #30 03/03/22 2 Unknown Rx tablet (Compazine) tabs pen needle, diabetic 32 gauge x 03/04/22 03/04/22 Unknown History (BD Meredith 2nd Gen Pen Needle) aripiprazole 2 mg tablet 2 mg PO DAILY@04 03/05/22 03/05/22 Unknown History cholestyramine-aspartame 4 gram See Rx Instructions .Route .COMPLEX 03/05/22 03/05/22 Unknown History oral powder (Cholestyramine Light) citalopram 40 mg tablet 40 mg PO DAILY@04 03/05/22 03/05/22 Unknown History multivitamin 1 tab PO DAILY 03/05/22 03/05/22 Unknown History pantoprazole 40 mg tablet,delayed 40 mg PO BID 03/05/22 03/05/22 Unknown History release potassium chloride 40 mEq/15 mL 40 meq PO QAM 03/05/22 03/05/22 Unknown History oral liquid sucralfate 1 gram tablet 1 g PO Q6H PRN Acid Reflux 03/05/22 03/05/22 Unknown History tiotropium bromide 18 mcg capsule 1 cap inhalation DAILY@04 03/05/22 03/05/22 Unknown History with inhalation device (Spiriva with HandiHaler) Allergies Allergy/AdvReac Type Severity Reaction Status Date / Time No Known Allergies Allergy Verified 03/05/22 09:19 Current Medications Generic Name Dose Route Start Last Admin Trade Name Freq PRN Reason Stop Dose Admin Hydrocodone Bitart/Acetaminophen 1 tab 03/04/22 21:46 03/04/22 23:23 Hydrocodone-Acetaminophen 5-325 Mg Tablet PO 1 tab Q8H PRN Administration MODERATE PAIN Gabapentin 300 mg 03/04/22 21:45 03/04/22 23:21 Gabapentin 300 Mg Capsule PO 300 mg TID@0100,1200,2100 HUSAM Administration Pantoprazole Sodium 40 mg 03/04/22 18:00 03/04/22 18:56 Pantoprazole 40 Mg Sdv IVP 40 mg Q12H HUSAM Administration Sucralfate 1 gm 03/04/22 17:55 03/04/22 21:03 Sucralfate 1 Gm/10 Ml Oral Liq Udc PO 1 gm AC&BEDTIME HUSAM Administration PFSH Acute PFSH: Medical History Acute eczema of hand Acute kidney injury 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 Benign essential HTN COPD (chronic obstructive pulmonary disease) Depression Esophageal cancer GERD (gastroesophageal reflux disease) History of jejunostomy tube placement Hypokalemia Low testosterone EMMANUEL (obstructive sleep apnea) Type 2 diabetes mellitus, without long-term current use of insulin Surgical History History of cholecystectomy History of esophagogastroduodenoscopy (EGD) (01/07/22) Family History Father Cancer Lung Hyperlipidemia Brother Lung disease COPD Other Alzheimer disease Hypertension Denies family history of Diabetes CAD (coronary artery disease) Clotting disorder Dementia Psychiatric illness Chronic kidney disease (CKD) Suicide Anesthesia complication Bleeding disorder Stroke Social History Smoking and tobacco status: current every day smoker cigarettes Packs smoked per day: 1 Alcohol intake: former Vitals/I&O/Wt Last Vital Signs Temp 99.3 F 03/05/22 04:00 Pulse 87 03/05/22 04:00 Resp 20 H 03/05/22 04:00 BP 93/48 03/05/22 04:00 Pulse Ox 96 03/05/22 04:00 O2 Del Method 03/04/22 20:15 03/04/22 03/04/22 03/05/22 14:59 22:59 06:59 Intake Total 100 / 100 Balance 100 / 100 Weight last 48 hrs Weight 158 lb 6.4 oz Physical Exam Const: COMMON NORMALS: no acute distress and patient oriented x3; negative for healthy appearing (Cachectic) and negative for well nourished GENERAL APPEARANCE: cooperative ORIENTATION/CONSCIOUSNESS: Yes awake, Yes oriented to person, Yes oriented to place and Yes oriented to time HENMT: COMMON NORMALS: normocephalic HEAD & SCALP: normocephalic Eye: COMMON NORMALS: Equal, round and reactive pupils present and no scleral icterus PUPIL: Yes Equal, round and reactive pupils present Lymph: LYMPHATIC: no lymphadenopathy noted Chest: COMMONS NORMALS: normal inspection of the chest Resp: COMMON NORMALS: normal respiratory effort and clear to auscultation bilaterally AUSCULTATION: clear to auscultation bilaterally Cardio: COMMON NORMALS: S1 normal heart sound present and S2 normal heart sound present; negative for No murmurs present (Cardio) HEART SOUNDS: S1 normal heart sound present and S2 normal heart sound present GI: COMMON NORMALS: Soft to palpation; negative for No hepatosplenomegaly present INSPECTION: Yes normal to inspection PALPATION: Yes Soft to palpation, No Firmness to palpation present (GI), No Tenderness to palpation present (GI), No Guarding due to palpation present (GI), No Rigid due to palpation, No No hepatosplenomegaly present and Yes Other GI palpation findings present (Feeding jejunostomy in place) Neuro: COMMON NORMALS: patient oriented x3 SENSORIUM/ORIENTATION: Yes oriented to person, Yes oriented to place and Yes oriented to time Psych: COMMON NORMALS: mental status grossly normal Skin: COMMON NORMALS: no rashes or lesions noted GENERAL SKIN EXAM: no rashes or lesions noted Data : 03/05/22 04:14 03/05/22 04:14 A&P Assessment and plan (1) GI bleed: After thorough history physical examination and reviewing the chart. PET CT scan was done on 02/23/2022 showing extensive lower esophageal malignancy o bserved involving the GE junction possibly lesser curvature of the stomach. In addition to paraesophageal mediastinal, right lower neck and retroperitoneal lymph nodes demonstrate metastatic involvement. 2 definite liver lesions are observed consistent metastases. From general surgery standpoint of view the patient will require esophageal stent placement. To add quality of life and perhaps address any bleeding points the tumor may represent. Which unfortunately we do not carry those equipments in our facility and thus he will require to have the service at a higher level of care Last attempted EGD was done on 01/07/2022 and the patient had a partially obstructive distal esophageal malignancy, yet I was not able to pass the endoscopy pass the tumor. And I would imagine at this point it would be the same problem or even worse. Likely a pediatric endoscopy would be a better option to pass the tumor yet I still think that the patient will benefit from laser fulguration and stent placement at the same setting. 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 I do not believe he is an appropriate candidate for any surgical intervention at this point Appropriate education was given to the patient regarding feeding jejunostomy care Thank you for consulting general surgery to participate taking care Mr. 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
[2022-03-05] MEDS: pantoprazole 40 mg SDV IVP ×2 (06:16→17:06)
[2022-03-05] MEDS: sucralfate 1 gm/10 mL Oral Liq UDC PO ×4 (06:16→20:32)
[2022-03-05] MEDS: ipratropium-albuterol 3 mL Neb INHALATION (07:41)
--- NOTE | 2022-03-05 08:12 | PC.PHAR ---
pt states he takes care of his own medications-pt states he takes the medications entered-notes are made in the pharmacy comments
[2022-03-05] MEDS: ARIPiprazole 2 mg Tablet PO (08:32)
[2022-03-05] MEDS: gabapentin 300 mg Capsule PO ×3 (08:32→20:32)
--- NOTE | 2022-03-05 10:56 | PC.CHAP ---
Pastoral Care Encounter/Spiritual Assessment Type of Contact [] Declined jawbone breaker visit [] Patient/Family/Request visit [] Outpatient visit [x] Follow-up visit [] Physician referral [] Code/Alert [x] Routine visit [] Staff referral [] Actively dying [] Patient sleeping [] Family support [] [] Out of room [] Palliative care [] [x] Receiving care in room [] Pre-surgical visit [] Trauma [] Long length of stay [] ICU visit [] Other: Relational/Emotional Strength [] Patient feels connected with others/family/visitors/staff [] Distress [] Loneliness/isolation [] Abandonment Spirituality of Patient [] Person of Jyoti [] Attends Catholic of their Jyoti [] Believes in Prayer [] Reads Bible or Protestant materials [] There are Spiritual issues to be addressed Child Care Attendant Interventions [] Prayer [] Active listening [] Non-anxious presence [] Spiritual/emotional support [] Crisis/trauma care [] Spiritual counseling [] Bereavement support [] Provided bereavement packet [] Provided Bible/devotional materials [] Provided toy/stuffed animal, coloring book to patient or family member [] Provided Communion [] Anointing/[place] [] Salvation [] Completed spiritual assessment [] Other: Impact on Illness or Injury [] Angry [] Fearful [] Anxious [] Often cries [] Exhaustion [] Unable to work [] Unable to attend orthodox [] Unable to walk/stand [] Unable to read [] Unable to drive [] Unable to eat/drink [] Unable to sleep [] Unable to be with family [] Patient intubated [] Other: Summary Follow-up visit Time spent with patient 5 mins
[2022-03-05] MEDS: nicotine 14 mg Patch 1 PATCH TRANSDERMA (17:06)
[2022-03-05 19:15] LABS: Hemoglobin 9.2 g/dL (11.7-16.6)
--- NOTE | 2022-03-05 20:04 | PC.NURSE ---
Report called to Eva BERMEO at [facility] in . Updated family and patient on status. Questions answered.
[2022-03-05] MEDS: HYDROcodone-acetaminophen 5-325 mg Tablet 1 TAB PO (20:32)
--- NOTE | 2022-03-05 22:11 | PC.NURSE ---
Patient discharged in stable condition to EMS for transfer to [facility].
--- NOTE | 2022-03-05 23:09 | P.TS_ITS ---
Transfer Summary Providers Date of Admission: 03/04/22 17:20 Date of Discharge/Transfer: 03/05/22 Attending Provider at Admission: Nicolas Jaquez MD Attending Provider at Transfer: Nicolas Jaquez MD Consults: Surgery: Dr. Boles Primary Care Provider: Trudy Cason DO Transfer Plans: Anticipated date of transfer: 03/05/22 . 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: Status: Acute (5) History of jejunostomy tube placement: Status: Acute (6) Benign essential HTN: Status: Chronic (7) COPD (chronic obstructive pulmonary disease): Status: Acute Qualifiers: COPD type: emphysema Emphysema type: panlobular Qualified Code(s): J43.1 - Panlobular emphysema (8) Type 2 diabetes mellitus, without long-term current use of insulin: Status: Chronic Reason for Visit Reason for Visit JUAN F Hospital Course Hospital Course Amy Jeronimo is a 61 year old male with past medical history of COPD, depression, 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 Patient himself denied of having any complaints other than weakness which he thought was secondary to poor oral intake.? Usually he takes only some sips of water by his mouth and most of his nutrition is through the J-tube with protein shakes.? He states previously he was having issues with leaking around the J-tube but that has been decreasing as well.? He has been dressing around the J tube by himself.? Drainage has been minimal for last 2 days but prior to that on Wednesday he changed around 20 bandages for the patient.? Denies any abdominal pain, nausea, vomiting.? States he has not had a bowel movement.? Denies any hematochezia or melena. Patient was brought to the hospital for further evaluation and management. Overall he received 4 unit of blood transfusion. Patient was seen by his outpatient surgeon who recommended laser fulguration along with possible stent placement by retaining jejunostomy tube for proper nutrition. He also recommended patient to have EGD through pediatric scope. Unfortunately above services are not available at [facility] hence transfer was sought to higher center for further evaluation and management. On admission patient was also found to have mild acute kidney injury most likely secondary dehydration. He was continue with gentle IV hydration. Renal function remained stable. Multiple attempts were made to different hospitals but transfer was difficult due to bed constraints. Finally patient was accepted at [facility] by Dr. Rolon. He has been discharged in hemodynamically stable condition. His hospitalization was otherwise unremarkable. Physical Exam Narrative: General: No acute distress, AO x3 pallor present, cachectic, temporal wasting HEENT: PERRLA, pupils bilaterally equal and reactive Chest: Normal vesicular breath sounds, no added sounds, equal good air entry bilaterally CVS: S1-S2 regular, no murmurs, no tachycardia, no gallops, no rubs Abdomen: Soft, nontender, no organomegaly, bowel sounds present, jejunostomy tube present with clean dressing around it without crusting Neuro: No focal deficits, no facial deformity, AO x3, power 5/5 in all limbs TS Data Studies Completed and Pending Pending at discharge Category Date Time Status Occult Blood Stool [Immunochemical Fecal OCB] Routine Lab 03/04/22 17:53 Uncollected Labs from last 24 hours 03/05/22 03/05/22 03/05/22 18:50 04:14 04:14 WBC 7.6 RBC 2.32 L Hgb 9.2 L 7.3 L Hct 27.0 L 22.6 L MCV 97.4 H MCH 31.5 MCHC 32.3 RDW 15.7 H Plt Count 311 MPV 9.9 Neut % (Auto) 67.5 Lymph % (Auto) 24.4 [place] % (Auto) 7.0 Eos % (Auto) 0.3 Baso % (Auto) 0.4 Neut # (Auto) 5.11 Lymph # (Auto) 1.9 [place] # (Auto) 0.5 Eos # (Auto) 0.0 Baso # (Auto) 0.0 Nucleated RBC % (auto) 0 Nucleated RBCs # 0.0 Sodium 135 L Potassium 4.2 Chloride 99 Carbon Dioxide 24 Anion Gap 16.2 BUN 40 H Creatinine 1.2 GFR Calculation 62.0 L Glucose 72 Calculated Osmolality 288 Calcium 8.5 Phosphorus 3.2 Magnesium 2.1 Total Bilirubin 0.6 AST 9 ALT < 5 Alkaline Phosphatase 57 Total Protein 5.6 L Albumin 2.9 L Globulin 2.7 Crossmatch 03/04/22 18:37 WBC RBC Hgb Hct MCV MCH MCHC RDW Plt Count MPV Neut % (Auto) Lymph % (Auto) [place] % (Auto) Eos % (Auto) Baso % (Auto) Neut # (Auto) Lymph # (Auto) [place] # (Auto) Eos # (Auto) Baso # (Auto) Nucleated RBC % (auto) Nucleated RBCs # Sodium Potassium Chloride Carbon Dioxide Anion Gap BUN Creatinine GFR Calculation Glucose Calculated Osmolality Calcium Phosphorus Magnesium Total Bilirubin AST ALT Alkaline Phosphatase Total Protein Albumin Globulin Crossmatch See Detail Laboratory Last Values WBC 7.6 10^3/uL (4.0-10.0) 03/05/22 04:14 RBC 2.32 10^6/uL (4.1-5.3) L 03/05/22 04:14 Hgb 9.2 g/dL (11.7-16.6) L 03/05/22 18:50 Hct 27.0 % (42.0-52.0) L 03/05/22 18:50 MCV 97.4 fl (80-94) H 03/05/22 04:14 MCH 31.5 pg (28.0-34.0) 03/05/22 04:14 MCHC 32.3 g/dL (30.0-36.0) 03/05/22 04:14 RDW 15.7 % (12.1-15.1) H 03/05/22 04:14 Plt Count 311 10^3/cmm (130-400) 03/05/22 04:14 MPV 9.9 fL (7.4-10.4) 03/05/22 04:14 Neut % (Auto) 67.5 % 03/05/22 04:14 Lymph % (Auto) 24.4 % 03/05/22 04:14 [place] % (Auto) 7.0 % 03/05/22 04:14 Eos % (Auto) 0.3 % 03/05/22 04:14 Baso % (Auto) 0.4 % 03/05/22 04:14 Neut # (Auto) 5.11 10^3/uL (1.8-7.7) 03/05/22 04:14 Lymph # (Auto) 1.9 10^3/uL (0.8-4.8) 03/05/22 04:14 [place] # (Auto) 0.5 10^3/uL (0.2-0.9) 03/05/22 04:14 Eos # (Auto) 0.0 10^3/uL (0.0-0.8) 03/05/22 04:14 Baso # (Auto) 0.0 10^3/uL (0.0-0.1) 03/05/22 04:14 Nucleated RBC % (auto) 0 % 03/05/22 04:14 Nucleated RBCs # 0.0 /100WBC 03/05/22 04:14 Sodium 135 mmol/L (136-145) L 03/05/22 04:14 Potassium 4.2 mmol/L (3.5-5.1) 03/05/22 04:14 Chloride 99 mmol/L (98-107) 03/05/22 04:14 Carbon Dioxide 24 mmol/L (22-29) 03/05/22 04:14 Anion Gap 16.2 (5-19) 03/05/22 04:14 BUN 40 mg/dL (6-20) H 03/05/22 04:14 Creatinine 1.2 mg/dL (0.7-1.2) 03/05/22 04:14 GFR Calculation 62.0 mL/min (90-130) L 03/05/22 04:14 Glucose 72 mg/dL (65-115) 03/05/22 04:14 Calculated Osmolality 288 mOsm/kg (285-295) 03/05/22 04:14 Calcium 8.5 mg/dL (8.5-10.5) 03/05/22 04:14 Phosphorus 3.2 mg/dL (2.5-4.5) 03/05/22 04:14 Magnesium 2.1 mg/dL (1.7-2.3) 03/05/22 04:14 Total Bilirubin 0.6 mg/dL (0.15-1.2) 03/05/22 04:14 AST 9 U/L (0-40) 03/05/22 04:14 ALT < 5 U/L (0-41) 03/05/22 04:14 Alkaline Phosphatase 57 U/L (40-130) 03/05/22 04:14 Total Protein 5.6 g/dL (6.6-8.7) L 03/05/22 04:14 Albumin 2.9 g/dL (3.5-5.2) L 03/05/22 04:14 Globulin 2.7 g/dL (1.3-4.6) 03/05/22 04:14 Vitamin B12 467 pg/mL (232-1245) 03/04/22 08:15 Folate 6.9 ng/mL (4.5-32.2) 03/04/22 08:15 Urine Color Yellow (Yellow) 03/04/22 20:15 Urine Appearance Clear (CLEAR) 03/04/22 20:15 Urine pH 5 (5-7) 03/04/22 20:15 Ur Specific [place] 1.010 (1.005-1.030) 03/04/22 20:15 Urine Protein Neg (Negative) 03/04/22 20:15 Urine Glucose (UA) Norm (Normal) 03/04/22 20:15 Urine Ketones Negative (Negative) 03/04/22 20:15 Urine Blood Neg (Negative) 03/04/22 20:15 Urine Nitrate Negative (Negative) 03/04/22 20:15 Urine Bilirubin Neg (Negative) 03/04/22 20:15 Urine Urobilinogen Norm mg/dL (Negative) 03/04/22 20:15 Ur Leukocyte Esterase Negative (Negative) 03/04/22 20:15 Ur Random Sodium 11 mmol/L 03/04/22 20:15 Ur Random Potassium 46 mmol/L 03/04/22 20:15 Ur Random Chloride 36 mmol/L 03/04/22 20:15 Urine Creatinine 90 mg/dL (39-259) 03/04/22 20:15 Crossmatch See Detail 03/04/22 18:37 Recent Clincial Data Last Vital Signs Temp 98.2 F 03/05/22 19:59 Pulse 77 03/05/22 19:59 Resp 16 03/05/22 19:59 BP 94/52 03/05/22 19:59 Pulse Ox 94 03/05/22 19:59 O2 Del Method 03/05/22 19:59 Vital Signs Temp Pulse Resp BP Pulse Ox O2 Del Method 03/05/22 19:59 98.2 F 77 16 94/52 94 Room Air 03/05/22 19:38 79 18 98 Room Air 03/05/22 15:47 98.6 F 81 16 83/57 97 Room Air 03/05/22 13:45 97.6 F 98 18 100/63 03/05/22 12:00 88 17 92/50 96 Room Air Intake & Output/Weight 03/03/22 03/04/22 03/05/22 03/06/22 06:59 06:59 06:59 06:59 Intake Total 100 / 100 820 / 820 Balance 100 / 100 820 / 820 Weight 71.849 kg Vitals Last Vital Signs Temp 98.2 F 03/05/22 19:59 Pulse 77 03/05/22 19:59 Resp 16 03/05/22 19:59 BP 94/52 03/05/22 19:59 Pulse Ox 94 03/05/22 19:59 O2 Del Method 03/05/22 19:59 TS Medications Medications Hydrocodone Bitart/Acetaminophen (Hydrocodone-Acetaminophen 5-325 Mg Tablet) 1 tab PO Q8H PRN PRN Reason: MODERATE PAIN Last Admin: 03/05/22 20:32 Dose: 1 tab Albuterol/Ipratropium (Ipratropium-Albuterol 3 Ml Neb) 3 ml INHALATION Q6H.RESP PRN PRN Reason: Shortness of breath Last Admin: 03/05/22 07:41 Dose: 3 ml Aripiprazole (Aripiprazole 2 Mg Tablet) 2 mg PO DAILY [facility] Last Admin: 03/05/22 08:32 Dose: 2 mg Carbidopa/Levodopa (Carbidopa-Levodopa 10-100 Mg Tablet) 1 each PO TID [facility] Last Admin: 03/05/22 20:32 Dose: 1 each Gabapentin (Gabapentin 300 Mg Capsule) 300 mg PO TID@0100,1200,2100 [facility] Last Admin: 03/05/22 20:32 Dose: 300 mg Lorazepam (Lorazepam 1 Mg Tablet) 0.5 mg PO Q6H PRN PRN Reason: Severe Nausea Morphine Sulfate (Morphine 4 Mg/Ml Sdv 1 Ml) 1 mg IVP Q4H PRN PRN Reason: SEVERE PAIN Nicotine (Nicotine 14 Mg Patch) 1 patch TRANSDERMA DAILY [facility] Last Admin: 03/05/22 17:06 Dose: 1 patch Ondansetron HCl (Ondansetron 2 Mg/Ml Sdv 2 Ml) 4 mg IVP Q8H PRN PRN Reason: vomiting, or N/V if npo Pantoprazole Sodium (Pantoprazole 40 Mg Sdv) 40 mg IVP Q12H HUSAM Last Admin: 03/05/22 17:06 Dose: 40 mg Fluticasone/Salmeterol (Fluticasone-Salmeterol 250-50 Diskus) 1 puff INHALATION BID.RESPIRATORY HUSAM Last Admin: 03/05/22 19:37 Dose: 1 inhalation Sucralfate (Sucralfate 1 Gm/10 Ml Oral Liq Udc) 1 gm PO AC&BEDTIME HUSAM Last Admin: 03/05/22 20:32 Dose: 1 gm Tiotropium [place] (Tiotropium 18 Mcg Mdi) 18 mcg INHALATION DAILY.RESPIRATORY HUSAM Last Admin: 03/05/22 08:09 Dose: 1 inhalation Discontinued Medications Hydrocodone Bitart/Acetaminophen (Hydrocodone-Acetaminophen 5-325 Mg Tablet) 1 tab PO Q4H PRN PRN Reason: MODERATE PAIN Albuterol/Ipratropium (Ipratropium-Albuterol 3 Ml Neb) 3 ml INHALATION Q6H.RESP HUSAM Sodium Chloride (Sodium Chloride 0.9% (100 Ml)) Confirm Administered Dose 100 mls @ as directed .ROUTE .STK-MED ONE Stop: 03/04/22 19:42 Last Infusion: 03/05/22 03:21 Dose: Infused Sodium Chloride (Sodium Chloride 0.9% (100 Ml)) Confirm Administered Dose 100 mls @ as directed .ROUTE .STK-MED ONE Stop: 03/05/22 10:26 Last Admin: 03/05/22 19:23 Dose: Not Given Morphine Sulfate (Morphine 4 Mg/Ml Sdv 1 Ml) 2 mg IVP Q4H PRN PRN Reason: SEVERE PAIN Tiotropium [place] (Tiotropium 18 Mcg Mdi) 18 mcg INHALATION DAILY@1400 [facility] Allergies No Known Allergies Allergy (Verified 03/05/22 10:08) Home Medications pen needle, diabetic 32 gauge x 1/4 (Comfort EZ Pen S [place]) #50 ea 05/21/20 [Rx Confirmed 03/05/22] fluticasone 250 mcg-salmeterol 50 mcg/dose blistr powdr for inhalation (Advair Diskus) 1 inh inhalation BID #60 ea 09/01/21 [Rx Confirmed 03/05/22] pen needle, diabetic 32 gauge x 1/4 (BD Ultra-Fine Micro Pen Needle) #100 ea 12/26/21 [Rx Confirmed 03/05/22] fluticasone propionate 50 mcg/actuation nasal spray,suspension (Flonase Allergy Relief) 2 spray intranasal DAILY PRN Allergy Symptoms 01/06/22 [History Confirmed 03/05/22] gabapentin 300 mg capsule See Rx Instructions .Route .COMPLEX #120 caps 01/27/22 [Rx Confirmed 03/05/22] hydrocolloid dressing 2 1/2 X 2 1/2 (DuoDERM CGF Adhesive Border Dressing) #5 ea 01/30/22 [Rx Confirmed 03/05/22] ondansetron 4 mg disintegrating tablet 4 mg PO Q8H PRN nausea and vomiting 10 days #30 tabs 02/06/22 [Rx Confirmed 03/05/22] albuterol sulfate 90 mcg/actuation aerosol inhaler (ProAir HFA) 2 puff inhalation Q6H PRN shortness of breath or wheezing #8.5 grams 02/25/22 [Rx Confirmed 03/05/22] hydrocodone 5 mg-acetaminophen 325 mg tablet 1 tab PO TID PRN pain 30 days #90 tabs 02/27/22 [Rx Confirmed 03/05/22] testosterone cypionate 200 mg/mL intramuscular oil 300 mg (1.5 mL) IM .EVERY 2 WEEKS 30 days #3 mL 02/27/22 [Rx Confirmed 03/05/22] lorazepam 1 mg tablet 0.5 - 1 mg PO Q6H PRN Severe Nausea #30 tabs 03/03/22 [Rx Confirmed 03/05/22] prochlorperazine maleate 10 mg tablet (Compazine) 10 mg PO Q4H PRN Mild Nausea #30 tabs 03/03/22 [Rx Confirmed 03/05/22] pen needle, diabetic 32 gauge x 5/32 (BD Meredith 2nd Gen Pen Needle) 03/04/22 [History Confirmed 03/05/22] aripiprazole 2 mg tablet 2 mg PO DAILY@04 03/05/22 [History Confirmed 03/05/22] carbidopa 10 mg-levodopa 100 mg tablet (Sinemet) 1 tab PO TID #270 tabs 03/05/22 [Rx] cholestyramine-aspartame 4 gram oral powder (Cholestyramine Light) See Rx Instructions .Route .COMPLEX 03/05/22 [History Confirmed 03/05/22] citalopram 40 mg tablet 40 mg PO DAILY@04 03/05/22 [History Confirmed 03/05/22] multivitamin 1 tab PO DAILY 03/05/22 [History Confirmed 03/05/22] pantoprazole 40 mg tablet,delayed release 40 mg PO BID 03/05/22 [History Confirmed 03/05/22] potassium chloride 40 mEq/15 mL oral liquid 40 meq PO QAM 03/05/22 [History Confirmed 03/05/22] sucralfate 1 gram tablet 1 g PO Q6H PRN Acid Reflux 03/05/22 [History Confirmed 03/05/22] tiotropium bromide 18 mcg capsule with inhalation device (Spiriva with HandiHaler) 1 cap inhalation DAILY@04 03/05/22 [History Confirmed 03/05/22] Discharge Plan Discharge Patient Disposition: Xfer Intermediate Care Fac Prescriptions: No Action ondansetron 4 mg tablet,disintegrating 4 mg PO Q8H PRN (Reason: nausea and vomiting) 10 Days Qty: 30 5RF hydrocodone-acetaminophen 5-325 mg tablet 1 tab PO TID PRN (Reason: pain) 30 Days Qty: 90 0RF testosterone cypionate 200 mg/mL oil 300 mg IM .EVERY 2 WEEKS 30 Days Qty: 3 5RF Rx Instructions: three bottles each month total of 3 ML (DME) pen needle, diabetic [Comfort EZ Pen S [place]] 32 gauge x 1/4 needle See Rx Instructions .ROUTE .MEDSUPPLY Qty: 50 2RF Rx Instructions: As directed for Victoza fluticasone propion-salmeterol [Advair Diskus] 250-50 mcg/dose blister with device 1 inh inhalation BID Qty: 60 5RF (DME) pen needle, diabetic [BD Ultra-Fine Micro Pen Needle] 32 gauge x 1/4 needle See Rx Instructions .Route Qty: 100 11RF Rx Instructions: USE DIRECTED FOR VICTOZA gabapentin 300 mg capsule See Rx Instructions .ROUTE .COMPLEX Qty: 120 2RF Dose Instruction: TAKE 1 CAPSULE BY MOUTH AT 1:00AM, TAKE 1 CAPSULE AT NOON, AND TAKE 1 CAPSULE EVERY DAY AT BEDTIME Rx Instructions: TAKE 1 CAPSULE BY MOUTH AT 1:00AM, TAKE 1 CAPSULE AT NOON, AND TAKE 1 CAPSULE EVERY DAY AT BEDTIME (DME) DuoDERM CGF Border Dressing 2 1/2 X 2 1/2 bandage See Rx Instructions .Route Qty: 5 3RF Rx Instructions: As directed albuterol sulfate [ProAir HFA] 90 mcg/actuation HFA aerosol inhaler 2 puff INHALATION Q6H PRN (Reason: shortness of breath or wheezing) Qty: 8.5 5RF carbidopa-levodopa [Sinemet] 10-100 mg tablet 1 tab PO TID Qty: 270 0RF fluticasone propionate [Flonase Allergy Relief] 50 mcg/actuation spray,suspension 2 spray intranasal DAILY PRN (Reason: Allergy Symptoms) Rx Instructions: administer into each nostril (DME) BD Meredith 2nd Gen Pen Needle 32 gauge x 5/32 needle MISCELLANEOUS multivitamin Tablet 1 tab PO DAILY citalopram 40 mg tablet 40 mg PO DAILY@04 sucralfate 1 gram tablet 1 g PO Q6H PRN (Reason: Acid Reflux) pantoprazole 40 mg tablet,delayed release (DR/EC) 40 mg PO BID Spiriva with HandiHaler 18 mcg capsule, w/inhalation device 1 cap INHALATION DAILY@04 aripiprazole 2 mg tablet 2 mg PO DAILY@04 Cholestyramine Light 4 gram powder See Rx Instructions .ROUTE .COMPLEX Rx Instructions: 4g po bid prn potassium chloride 40 mEq/15 mL liquid 40 meq PO QAM prochlorperazine maleate [Compazine] 10 mg tablet 10 mg PO Q4H PRN (Reason: Mild Nausea) Qty: 30 3RF lorazepam 1 mg tablet 0.5 - 1 mg PO Q6H PRN (Reason: Severe Nausea) Qty: 30 3RF Discharge Orders: Discharge Order (Routine); Ordered 03/05/22 Ordered By: Nicolas Jaquez Transfer Out of Facility (Order); Ordered 03/05/22 Ordered By: Nicolas Jaquez Discharge Diet: Clear Liquid Discharge Activity: Resume usual activity and Increase activity as tolerated Transfer Attestations Time Spent in Transfer Care: greater than 30 min Quality Metrics Clinical Quality Measures [ No reported AMI, CVA or VTE this stay] Coding Level of Care Code Acute Lube Attendant for Chg Fwd Diagnoses Anemia D64.9 GI bleed K92.2 Acute kidney injury N17.9 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
== END 2022-03-05 22:30 | disposition intermediate care facility (04) ==
PROVIDERS: Admitting Provider Student in an Organized Health Care Education/Training Program; PCP Family Medicine; Visit Provider Student in an Organized Health Care Education/Training Program
DX: D64.9 Anemia, unspecified (principal); K92.2 Gastrointestinal hemorrhage, unspecified; N17.9 Acute kidney failure, unspecified; C15.9 Malignant neoplasm of esophagus, unspecified; C78.7 Secondary malignant neoplasm of liver and intrahepatic bile duct; I10 Essential (primary) hypertension; J43.1 Panlobular emphysema; E11.9 Type 2 diabetes mellitus without complications; F32.A Depression, unspecified; G47.33 Obstructive sleep apnea (adult) (pediatric); E86.0 Dehydration; F17.210 Nicotine dependence, cigarettes, uncomplicated
CPT/HCPCS: 36415; 36430; 80053; 81003; 82436; 82570; 82607; 82746; 83735; 84100; 84133; 84300; 85014; 85018; 85025; 86920; 94640; C9113; G0378; G0379; P9016

== ENCOUNTER → 2022-03-18 08:14 | Outpatient (BNVA) | payer MEDICARE, MEDICAID, SELFPAY | PROVIDERS: PCP Family Medicine; Visit Provider Nurse Practitioner | DX: Z51.0 Encounter for antineoplastic radiation therapy (principal); C15.5 Malignant neoplasm of lower third of esophagus | CPT/HCPCS: 77014; 77387; 77412; 77427; 99214 ==

== ENCOUNTER 2022-03-25 02:32 | Emergency (ER) | payer MEDICARE, MEDICAID, SELFPAY ==
[2022-03-25 02:36] VITALS: BP 99/70; PULSE 98; RESP 19; TEMP 36.6; O2SAT 98; BMI 24.0
--- NOTE | 2022-03-25 02:59 | W.ED.GENADLT ---
HPI - General Adult General: Chief complaint: General Medical Stated complaint: Pain From Tube In stomack Time Seen by Provider: 03/25/22 02:44 Source: patient Mode of arrival: ambulatory Limitations: no limitations History of Present Illness: 61-year-old male who states he has noticed an abscess to the anterior abdominal wall he had a history of a PEG tube he does keep the dressing over the PEG tube site when he shaves his abdomen where the dressing is he does have an abscess on his abdomen that he states is formed over the last 2 days that he noticed. He does state that he notes when he does squeeze that he has some slight purulent drainage from the PEG tube tract denies any fever has slight pain he rates a 2 out of 10 denies any vomiting or diarrhea Associated symptoms: Deny chest pain, dyspnea, headache(s), nausea, rash or vomiting Review of Systems Const: Denies: fever(s), chills, body aches or change in appetite Eyes: Denies: blurry vision or eye discomfort ENMT: Denies: throat pain or dental pain Card: Denies: chest pain Resp: Denies: dyspnea GI: Denies: abdominal pain, nausea, vomiting or diarrhea : Denies: dysuria Musc: Denies: neck pain or back pain Skin/Breast: Denies: rash Neuro: Denies: headache(s) Psych: Denies: depression Uday/Lymph: Denies: easy bruising All/Imm: Denies: urticaria PFSH ED PFSH: Medical History (Updated 03/25/22 @ 03:00 by Sukh Sales MD) Acute eczema of hand Acute kidney injury 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 Benign essential HTN COPD (chronic obstructive pulmonary disease) Depression Esophageal cancer GERD (gastroesophageal reflux disease) History of jejunostomy tube placement Hypokalemia Low testosterone EMMANUEL (obstructive sleep apnea) Presence of other vascular implants and grafts Right subclavian Power Port inserted 12/[address] Boles/KARUNA Type 2 diabetes mellitus, without long-term current use of insulin Surgical History History of cholecystectomy History of esophagogastroduodenoscopy (EGD) (01/07/22) Family History Father Cancer Lung Hyperlipidemia Brother Lung disease COPD Other Alzheimer disease Hypertension Denies family history of Diabetes CAD (coronary artery disease) Clotting disorder Dementia Psychiatric illness Chronic kidney disease (CKD) Suicide Anesthesia complication Bleeding disorder Stroke Social History Smoking and tobacco status: current every day smoker cigarettes Packs smoked per day: 1 Alcohol intake: former Physical Exam Const: COMMON NORMALS: no acute distress, patient oriented x3 and healthy appearing HENMT: COMMON NORMALS: normocephalic and atraumatic HEAD & SCALP: normocephalic and atraumatic Eye: COMMON NORMALS: Equal, round and reactive pupils present and EOMs intact bilaterally PUPIL: Yes Equal, round and reactive pupils present Neck/C-Spine: COMMON NORMALS: full ROM and supple Chest: COMMONS NORMALS: normal inspection of the chest and normal palpation of entire chest wall Resp: COMMON NORMALS: normal respiratory effort, No retractions, No use of accessory muscles and clear to auscultation bilaterally AUSCULTATION: clear to auscultation bilaterally Cardio: COMMON NORMALS: regular rate, regular rhythm and No murmurs present (Cardio) RATE: regular rate RHYTHM: regular rhythm GI: COMMON NORMALS: Soft to palpation, non-tender and no masses PALPATION: Yes Soft to palpation Extremity: COMMON NORMALS: normal to inspection and full ROM Neuro: COMMON NORMALS: patient oriented x3, moves all extremities and no focal motor deficits Psych: COMMON NORMALS: mental status grossly normal, Normal thought process present and cooperative THOUGHT PROCESS: Normal thought process present Skin: COMMON NORMALS: no rashes or lesions noted and no wounds NARRATIVE SKIN EXAM: Anterior wall abscess roughly 2 cm from his PEG tube tract abscess is roughly 1 to 2 cm in diameter minimal erythema GENERAL SKIN EXAM: no rashes or lesions noted Procedures Abscess I/D Site: abdomen Local Anesthetic: lidocaine 1% Amount of anesthesia used (mL): 6 Technique: incised with #11 blade Irrigation: No Packing used?: iodoform Course Vital Signs: Vital signs: Vital Signs Temperature 97.9 F 03/25/22 02:36 Pulse Rate 98 03/25/22 02:36 Respiratory Rate 19 H 03/25/22 02:36 Blood Pressure 99/70 03/25/22 02:36 Pulse Oximetry 98 03/25/22 02:36 Oxygen Delivery Me thod 03/25/22 02:36 [facility] - General Adult Medical Decision Making Patient presents here with an anterior wall abscess likely from shaving his abdomen with abscesses roughly 2 cm from his PEG tube site appears to have tract to his PEG tube as he has had some drainage from the ear but the abscess is not part of the PEG tube tract. His PEG tube tract looks well he has no signs of infection there. Did drain the abscess and incised it did pack it with iodoform we will place him on antibiotics I spoke to Dr. Boles who knows the patient very well and he is to follow him up at this time. He is to return if worsening Discharge Plan Discharge Patient Disposition: Home Clinical Impression: Abscess Condition: Stable Prescriptions: New Bactrim DS 800-160 mg tablet 1 tab PO BID 10 Days Qty: 20 0RF No Action testosterone cypionate 200 mg/mL oil 300 mg IM .EVERY 2 WEEKS 30 Days Qty: 3 5RF Rx Instructions: three bottles each month total of 3 ML hydrocodone-acetaminophen 7.5-325 mg tablet 1 tab PO Q8H PRN (Reason: pain) 30 Days Qty: 90 0RF Rx Instructions: Do not fill until 03/28/2022 (DME) pen needle, diabetic [Comfort EZ Pen [place]] 32 gauge x 1/4 needle See Rx Instructions .ROUTE .MEDSUPPLY Qty: 50 2RF Rx Instructions: As directed for Victoza (DME) pen needle, diabetic [BD Ultra-Fine Micro Pen Needle] 32 gauge x 1/4 needle See Rx Instructions .Route Qty: 100 11RF Rx Instructions: USE DIRECTED FOR VICTOZA gabapentin 300 mg capsule See Rx Instructions .ROUTE .COMPLEX Qty: 120 2RF Dose Instruction: TAKE 1 CAPSULE BY MOUTH AT 1:00AM, TAKE 1 CAPSULE AT NOON, AND TAKE 1 CAPSULE EVERY DAY AT BEDTIME Rx Instructions: TAKE 1 CAPSULE BY MOUTH AT 1:00AM, TAKE 1 CAPSULE AT NOON, AND TAKE 1 CAPSULE EVERY DAY AT BEDTIME (DME) DuoDERM CGF Border Dressing 2 1/2 X 2 1/2 bandage See Rx Instructions .Route Qty: 5 3RF Rx Instructions: As directed albuterol sulfate [ProAir HFA] 90 mcg/actuation HFA aerosol inhaler 2 puff INHALATION Q6H PRN (Reason: shortness of breath or wheezing) Qty: 8.5 5RF carbidopa-levodopa [Sinemet] 10-100 mg tablet 1 tab PO TID Qty: 270 0RF Cholestyramine Light 4 gram powder See Rx Instructions .ROUTE .COMPLEX Qty: 201.6 2RF Rx Instructions: 4g po bid prn citalopram 40 mg tablet 40 mg PO DAILY@04 Qty: 90 0RF fluticasone propion-salmeterol [Advair Diskus] 250-50 mcg/dose blister with device 1 inh inhalation BID Qty: 60 5RF fluticasone propionate [Flonase Allergy Relief] 50 mcg/actuation spray,suspension 2 spray intranasal DAILY PRN (Reason: Allergy Symptoms) Qty: 16 0RF Rx Instructions: administer into each nostril pantoprazole 40 mg tablet,delayed release (DR/EC) 40 mg PO BID Qty: 90 0RF potassium chloride 40 mEq/15 mL liquid 40 meq PO QAM Qty: 473 0RF sucralfate 1 gram tablet 1 g PO Q6H PRN (Reason: Acid Reflux) Qty: 90 0RF Glucerna 1.5 Joshua 0.08-1.5 gram-kcal/mL liquid See Rx Instructions PO .per hour Qty: 237 0RF Rx Instructions: 70mls orally PER HOUR; Spiriva with HandiHaler 18 mcg capsule, w/inhalation device See Rx Instructions .ROUTE .COMPLEX Qty: 90 0RF Dose Instruction: INHALE THE CONTENTS OF 1 CAPSULE VIA INHALATION DEVICE EVERY DAY AT 2 PM Rx Instructions: INHALE THE CONTENTS OF 1 CAPSULE VIA INHALATION DEVICE EVERY DAY AT 2 PM ondansetron 4 mg tablet,disintegrating See Rx Instructions .ROUTE .COMPLEX Qty: 30 0RF Dose Instruction: DISSOLVE 1 TABLET ON THE TONGUE EVERY 8 HOURS FOR 10 DAYS NEEDED FOR NAUSEA OR VOMITING Rx Instructions: DISSOLVE 1 TABLET ON THE TONGUE EVERY 8 HOURS FOR 10 DAYS NEEDED FOR NAUSEA OR VOMITING (DME) BD Meredith 2nd Gen Pen Needle 32 gauge x 5/32 needle MISCELLANEOUS multivitamin Tablet 1 tab PO DAILY aripiprazole 2 mg tablet 2 mg PO DAILY@04 prochlorperazine maleate [Compazine] 10 mg tablet 10 mg PO Q4H PRN (Reason: Mild Nausea) Qty: 30 3RF lorazepam 1 mg tablet 0.5 - 1 mg PO Q6H PRN (Reason: Severe Nausea) Qty: 30 3RF Discharge Orders: Discharge ED (Routine); Ordered 03/25/22 Ordered By: Sukh Sales Referrals: Alex Boles MD [Physician] - 1-3 days Trudy Cason DO [Primary Care Provider] - 1-3 days Discharge Diet: Advance as tolerated Discharge Activity: Resume usual activity Patient Instructions: Abscess (ED) Coding Level of Care Code ED Pump Stitcher for Colleen Chaidez
[2022-03-25] MEDS: HYDROcodone-acetaminophen 5-325 mg Tablet 2 TAB PO (03:15)
--- NOTE | 2022-03-25 03:22 | PC.NURSE ---
I/D was performed by Dr Sales. Moderate amount of purulent drainage expelled. packed with 1 packing and dressed with 4x4's.
--- NOTE | 2022-03-25 13:19 | DCPLANNER ---
Addendum entered by Radha Corona 04/22/22 15:17: Patient had an appointment scheduled with general surgery for 03.25.22 - patient did attend appointment. Original Note: manager golf had message to schedule a follow up appointment for patient with general surgery. manager golf sent patients information to the front office staff at general surgery. Patients information will be printed and reviewed. Clinic will call patient with appointment information.
== END 2022-03-25 03:15 | disposition home or self-care (01) ==
PROVIDERS: Emergency Provider Emergency Medicine; PCP Family Medicine
DX: L02.211 Cutaneous abscess of abdominal wall (principal); F17.210 Nicotine dependence, cigarettes, uncomplicated; J44.9 Chronic obstructive pulmonary disease, unspecified; Z85.01 Personal history of malignant neoplasm of esophagus; Z85.05 Personal history of malignant neoplasm of liver; E11.9 Type 2 diabetes mellitus without complications
CPT/HCPCS: 10060; 87070; 87077; 87186; 99283

== ENCOUNTER 2022-03-25 13:37 | Oncology outpatient (recurring) (ONCR) | payer MEDICARE, MEDICAID, SELFPAY ==
[2022-03-04 08:38] LABS: Basophils % 0.4 %; Eosinophils % 0.2 %; Hematocrit 21.5 % (42.0-52.0); Hemoglobin 7.1 g/dL (11.7-16.6); Lymphocytes # 1.3 10^3/uL (0.8-4.8); Lymphocytes % 11.7 %; Mean Corpuscular Hemoglobin 33.2 pg (28.0-34.0); Mean Corpuscular Volume 100.5 fl (80-94); Mean Platelet Volume 10.4 fL (7.4-10.4); Monocytes # 0.5 10^3/uL (0.2-0.9); Monocytes % 4.6 %; Neutrophils # 9.25 10^3/uL (1.8-7.7); Neutrophils % 82.8 %; Nucleated Red Blood Cells % 0 %; Platelet Count 397 10^3/cmm (130-400); Red Blood Count 2.14 10^6/uL (4.1-5.3); Red Cell Distribution Width 14.7 % (12.1-15.1); White Blood Count 11.2 10^3/uL (4.0-10.0)
[2022-03-04 08:57] LABS: Alanine Aminotransferase < 5 U/L (0-41); Albumin Level 3.3 g/dL (3.5-5.2); Alkaline Phosphatase 64 U/L (40-130); Anion Gap 15.1 (5-19); Aspartate Amino Transferase 9 U/L (0-40); Blood Urea Nitrogen 64 mg/dL (6-20); Calcium 9.2 mg/dL (8.5-10.5); Carbon Dioxide 26 mmol/L (22-29); Chloride 96 mmol/L (98-107); Globulin 3.2 g/dL (1.3-4.6); Glomerular Filtration Rate 41.5 mL/min (90-130); Glucose 96 mg/dL (65-115); Osmolality Calculated 292 mOsm/kg (285-295); Potassium 5.1 mmol/L (3.5-5.1); Sodium 132 mmol/L (136-145); Total Bilirubin 0.2 mg/dL (0.15-1.2); Total Protein 6.5 g/dL (6.6-8.7)
[2022-03-04 09:25] LABS: Basophils % 0.2 %; Eosinophils % 0.2 %; Hemoglobin 6.7 g/dL (11.7-16.6); Lymphocytes # 1.1 10^3/uL (0.8-4.8); Lymphocytes % 11.4 %; Mean Corpuscular HGB Conc 33.5 g/dL (30.0-36.0); Mean Corpuscular Hemoglobin 32.8 pg (28.0-34.0); Mean Platelet Volume 10.5 fL (7.4-10.4); Monocytes # 0.5 10^3/uL (0.2-0.9); Monocytes % 4.6 %; Neutrophils # 8.29 10^3/uL (1.8-7.7); Neutrophils % 83.1 %; Nucleated Red Blood Cells % 0 %; Platelet Count 365 10^3/cmm (130-400); Red Blood Count 2.04 10^6/uL (4.1-5.3); Red Cell Distribution Width 14.6 % (12.1-15.1)
[2022-03-04 09:26] LABS: Reticulocyte % 5.6 % (0.5-2.0)
[2022-03-04 10:00] LABS: Iron 40 ug/dL (59-158); Lactate Dehydrogenase 157 U/L (135-225); Percent Saturation 16.4 % (20-50); Total Iron Binding Capacity 243 mcg/dl; Unsaturated Iron Binding 203 ug/dL (112-347)
[2022-03-04] MEDS: sodium chloride 0.9% 1,000 ML 100 ML IV (10:04)
[2022-03-04] MEDS: acetaminophen 325 mg Tablet 650 MG PO (15:29)
[2022-03-04] MEDS: diphenhydrAMINE 25 mg Capsule PO (15:32)
[2022-03-04 15:40] VITALS: BP 88/55; PULSE 88; RESP 18; TEMP 36.9; O2SAT 100
[2022-03-04 15:55] VITALS: BP 86/52; PULSE 86; RESP 18; TEMP 36.9; O2SAT 100
[2022-03-04] MEDS: nicotine 14 mg Patch 1 PATCH TRANSDERMA (16:00)
--- NOTE | 2022-03-04 16:27 | PC.NURSE ---
Patient transferred to inpatient room 270 with report given to Kendra BERMEO for the transfusion of first unit of prbc.Patient made comfortable with call cast in place and bed down with his TV on. Patient instructed to sj nurse if anything needed.nika
--- NOTE | 2022-03-16 13:06 | N.ONRAD NP_ITS ---
Radiation Oncology Consultation Patient Name: Ovi Jeronimo Date of : 1960 Date of Service: 03/16/2022 Attending Physician: Kenneth Mckeon M.D. Ovi Jeronimo was seen in consultation this afternoon at the request of Isidro Thurman M.D. for consideration of esophageal radiotherapy in the management of a recently diagnosed distal esophageal carcinoma. He initially was evaluated at the [facility] Emergency Department in December for dysphagia, early satiety, and weight loss (100 lbs). A thoracoabdominopelvic CT scan described diffuse wall thickening of the distal esophagus, small hilar lymphadenopathy, a 2.4 cm gastrohepatic ligament lymph node, subcentimeter retrocrural lymph nodes, and retroperitoneal lymphadenopathy. During his admission, an upper endoscopy was performed by Alex Hi M.D. on January 07, 2022. Intraoperative findings reported a partially obstructing, large mass with bleeding noted in the lower third of the esophagus. Biopsies diagnosed a moderately to poorly differentiated adenocarcinoma (HER2 negative and PD-L1 > 1%). A laparoscopically placed feeding jejunostomy and right subclavian vein PowerPort were placed on January 19, 2022. A PET scan (independently reviewed in [facility]) ordered on February 23, 2022 demonstrated metabolic activity within the esophagus extending from the james to the gastric cardia (SUV 15.2), right periesophageal lymph node measuring 1.1 cm (SUV 4.9), bilateral retrocrural lymphadenopathy, retroperitoneal lymphadenopathy (6.5), FDG activity within the right para-colic region (SUV 4.5), and increase activity within the anterior right lobe and inferior left lobe of the liver. He was admitted on March 04, 2022 for anemia (Hg 6.7 g/dL). He was transfused 4 units of packed red blood cells and transferred to [facility] in [place], [place]. The patient was referred for palliative esophageal radiotherapy. Following a discussion concerning Mr. Jeronimo???s symptoms, specifically, bleeding resulting in significant anemia. An attempt at palliative radiotherapy is warranted. I would recommend a one-week course of hypo-fractionated radiotherapy Prior to beginning treatment, a computed tomographic radiotherapy planning scan in the treatment position will be acquired to identify the gross tumor volume. Potential toxicities of radiation treatment have been reviewed. The patient has verbalized understanding would like to proceed as recommended. The patient???s medical treatment plan was discussed with Isidro Thurman M.D. Signed by: Dr. Kenneth Mckeon 03/16/2022 1:05:25 PM
--- NOTE | 2022-03-17 | CT_ITS ---
Radiation Therapy Planning CT images; total exam DLP: 445.83 mGy-cm MTDD
[2022-03-18 08:45] LABS: Basophils # 0.1 10^3/uL (0.0-0.1); Basophils % 0.6 %; Eosinophils # 0.2 10^3/uL (0.0-0.8); Eosinophils % 1.9 %; Hematocrit 34.5 % (42.0-52.0); Hemoglobin 11.1 g/dL (11.7-16.6); Lymphocytes # 1.9 10^3/uL (0.8-4.8); Lymphocytes % 23.4 %; Mean Corpuscular HGB Conc 32.2 g/dL (30.0-36.0); Mean Corpuscular Hemoglobin 31.2 pg (28.0-34.0); Mean Corpuscular Volume 96.9 fl (80-94); Mean Platelet Volume 9.8 fL (7.4-10.4); Monocytes # 0.5 10^3/uL (0.2-0.9); Monocytes % 5.7 %; Neutrophils # 5.46 10^3/uL (1.8-7.7); Nucleated Red Blood Cells % 0 %; Platelet Count 303 10^3/cmm (130-400); Red Blood Count 3.56 10^6/uL (4.1-5.3); Red Cell Distribution Width 16.7 % (12.1-15.1)
[2022-03-18 09:08] LABS: Alkaline Phosphatase 123 U/L (40-130); Aspartate Amino Transferase 10 U/L (0-40); Blood Urea Nitrogen 12 mg/dL (6-20); Carbon Dioxide 29 mmol/L (22-29); Chloride 100 mmol/L (98-107); Globulin 3.6 g/dL (1.3-4.6); Glucose 104 mg/dL (65-115); Sodium 137 mmol/L (136-145); Total Bilirubin 0.3 mg/dL (0.15-1.2)
[2022-03-18 09:20] LABS: Alanine Aminotransferase < 5 U/L (0-41)
[2022-03-18 09:24] LABS: Albumin Level 2.7 g/dL (3.5-5.2); Calcium 8.2 mg/dL (8.5-10.5); Glomerular Filtration Rate 137.9 mL/min (90-130); Total Protein 6.3 g/dL (6.6-8.7)
--- NOTE | 2022-03-24 14:34 | ONCRAD TMN_ITS ---
Radiation Oncology Treatment Management Note Patient Name: Ovi Jeronimo Date of : 1960 Date of Service: 03/24/2022 Attending Physician: Kenneth Mckeon M.D. Ovi Jeronimo is a 61 year-old white male diagnosed with diagnosed with metastatic esophageal carcinoma. He initially was evaluated at the [facility]'s Emergency Department in December for dysphagia, early satiety, and weight loss (100 lbs). A thoracoabdominopelvic CT scan described diffuse wall thickening of the distal esophagus, small hilar lymphadenopathy, a 2.4 cm gastrohepatic ligament lymph node, subcentimeter retrocrural lymph nodes, and retroperitoneal lymphadenopathy. During his admission, an upper endoscopy was performed by Alex Hi M.D. on January 07, 2022. Intraoperative findings reported a partially obstructing, large mass with bleeding noted in the lower third of the esophagus. Biopsies diagnosed a moderately to poorly differentiated adenocarcinoma (HER2 negative and PD-L1 > 1%). A laparoscopically placed feeding jejunostomy and right subclavian vein PowerPort were placed on January 19, 2022. A PET scan ordered on February 23, 2022 demonstrated metabolic activity within the esophagus extending from the james to the gastric cardia (SUV 15.2), right periesophageal lymph node measuring 1.1 cm (SUV 4.9), bilateral retrocrural lymphadenopathy, retroperitoneal lymphadenopathy (6.5), FDG activity within the right para-colic region (SUV 4.5), and increase activity within the anterior right lobe and inferior left lobe of the liver. He was admitted on March 04, 2022 for anemia (Hg 6.7 g/dL). He was transfused 4 units of packed red blood cells and transferred to [facility] in [place], [place]. The patient has received 16 Gy of a prescribed 20 Gy to the esophagus with a 3-dimensional conformal radiotherapy plan utilizing AP, LPO, and RPO ports. Upon review of systems, he denied hematemesis. On physical examination, the patient weighed 167 lbs. His temperature was 97.1 ???F and the blood pressure was 92/63 mmHg. The pulse was 89 bpm and his respiratory rate was 16. There was no erythema present within the skin. Continue palliative radiotherapy as prescribed. Signed by: Dr. Kenneth Mckeon 03/24/2022 2:33:56 PM
== END 2022-03-30 23:59 | disposition home or self-care (01) ==
PROVIDERS: Internal Medicine Medical Oncology; Nurse Practitioner; PCP Family Medicine; Visit Provider Radiology Radiation Oncology
DX: C15.5 Malignant neoplasm of lower third of esophagus; R63.4 Abnormal weight loss; C77.8 Secondary and unspecified malignant neoplasm of lymph nodes of multiple regions; Z68.24 Body mass index [BMI] 24.0-24.9, adult; Z79.899 Other long term (current) drug therapy
CPT/HCPCS: 36430; 36591; 77290; 77295; 77300; 77334; 77336; 77387; 77412; 80053; 83010; 83540; 83550; 83615; 85025; 85045; 86850; 86900; 86920; 99024; 99205; 99214; 99215; J7030; P9016

== ENCOUNTER 2022-03-27 | Outpatient (CLI) | payer MEDICARE, MEDICAID, SELFPAY | END 2022-03-27 23:00 | disposition home or self-care (01) | LOC: RAD 04-06 22:01 | PROVIDERS: PCP Family Medicine; Visit Provider Surgery | DX: L02.91 Cutaneous abscess, unspecified (principal); Z98.890 Other specified postprocedural states; R59.0 Localized enlarged lymph nodes | CPT/HCPCS: 74177; 99024 ==

== ENCOUNTER 2022-03-30 10:09 | Day surgery (SDC) | payer MEDICARE, MEDICAID, SELFPAY ==
[2022-03-27 15:42] VITALS: BMI 23.8
[2022-03-30] VITALS (9 sets, daily range): BP systolic 94–112; BP diastolic 63–73; PULSE 87–101; RESP 18–20; TEMP 36.2–36.9; O2SAT 96–99
[2022-03-30] MEDS: sodium chloride 0.9% 1,000 ML 30 ML IV (11:12)
[2022-03-30] MEDS: acetaminophen 1,000 MG/100 ML PIGGYBACK 400 MG IV (11:13)
--- NOTE | 2022-03-30 12:05 | W.PM.OPSUD ---
Surgery/Procedure H&P Update DATE OF PROCEDURE: March 30, 2022 DATE H&P PERFORMED: 03/25/22 H&P UPDATE INFORMATION: I have reviewed H&P completed within last 30 days, I have examined patient prior to procedure and No changes to prior documentation PREOP DIAGNOSIS: Abdominal wall abscess PRIMARY INDICATION FOR PROCEDURE: The same PLANNED PROCEDURE: Operation Date: 03/30/22 12:05 Proposed Procedures p incsion and drainage of abd wall abscess 04939,L02.91(Not Applicable) - Alex Boles MD
--- NOTE | 2022-03-30 12:27 | ANES.PREANE2 ---
Pre-Anesthetic Assessment Height/Weight: Height 1.78 m Weight 75.296 kg Temp Pulse Resp BP Pulse Ox O2 Del Method 98.0 F 101 H 18 112/73 98 03/30/22 10:54 03/30/22 10:54 03/30/22 10:54 03/30/22 10:54 03/30/22 10:54 03/30/22 10:54 Preop Diagnosis: Abdominal wall abscess Operation Date: 03/30/22 12:05 Proposed Procedures p incsion and drainage of abd wall abscess 65222,L02.91(Not Applicable) - Alex Boles MD Was Beta Lyn taken within 24 hours: N/A Was Clonidine taken within 24 hours: N/A Last intake: Intake Last Liquid Date 03/29/22 Last Liquid Time 23:59 Last Solid Date 03/28/22 Last Solid Time 18:00 Social Tobacco 2 pack(s) per day Exam alert, oriented x 3, clear to auscultation bilaterally and regular rate & rhythm Airway Submandibular: within normal limits Cervical ROM: within normal limits Mallampati: Class II Comments: Comments: a few scattered teeth. Nothing loose History/ROS No significant history except as noted and No significant complaints Pulmonary Asthma CV/HEM None reported None reported Hepatic liver Mets GI Esophageal CA. PEG tube Metabolic None reported Musc/skel None reported Neuropsych None reported Anesthetic Plan ASA status: 3 Anesthesia: Anesthesia Evaluation and MAC Risk of > 500 ml blood loss (7ml/kg in children): No Medications/Allergies Home Medications Medication Instructions Recorded Confirmed Last Taken Type pen needle, diabetic 32 gauge x #50 ea 05/21/20 03/28/22 Unknown Rx 1/4 (Comfort EZ Pen [place]) pen needle, diabetic 32 gauge x #100 ea 12/26/21 03/28/22 Unknown Rx 1/4 (BD Ultra-Fine Micro Pen Needle) gabapentin 300 mg capsule See Rx Instructions .Route 01/27/22 03/30/22 03/29/22 Rx .COMPLEX #120 caps hydrocolloid dressing 2 1/2 X 2 #5 ea 01/30/22 03/28/22 Unknown Rx 1/2 (DuoDERM CGF Adhesive Border Dressing) testosterone cypionate 200 mg/mL 300 mg (1.5 mL) IM .EVERY 2 WEEKS 02/27/22 03/28/22 02/28/22 Rx intramuscular oil 30 days #3 mL lorazepam 1 mg tablet 0.5 - 1 mg PO Q6H PRN Severe 03/03/22 03/28/22 Unknown Rx Nausea #30 tabs prochlorperazine maleate 10 mg 10 mg PO Q4H PRN Mild Nausea #30 03/03/22 03/28/22 Unknown Rx tablet (Compazine) tabs pen needle, diabetic 32 gauge x 03/04/22 03/28/22 Unknown History (BD Meredith 2nd Gen Pen Needle) aripiprazole 2 mg tablet 2 mg PO DAILY@04 03/05/22 03/30/22 03/29/22 History multivitamin 1 tab PO DAILY 03/05/22 03/30/22 03/30/22 History albuterol sulfate 90 mcg/actuation 2 puff inhalation Q6H PRN 03/13/22 03/30/22 03/30/22 Rx aerosol inhaler (ProAir HFA) shortness of breath or wheezing #8.5 grams carbidopa 10 mg-levodopa 100 mg 1 tab PO TID #270 tabs 03/13/22 03/30/22 03/30/22 Rx tablet (Sinemet) cholestyramine-aspartame 4 gram See Rx Instructions .Route 03/13/22 03/30/22 03/29/22 Rx oral powder (Cholestyramine Light) .COMPLEX #201.6 grams citalopram 40 mg tablet 40 mg PO DAILY@04 #90 tabs 03/13/22 03/30/22 03/29/22 Rx fluticasone 250 mcg-salmeterol 50 1 inh inhalation BID #60 ea 03/13/22 03/30/22 03/29/22 Rx mcg/dose blistr powdr for inhalation (Advair Diskus) fluticasone propionate 50 2 spray intranasal DAILY PRN 03/13/22 03/28/22 Unknown Rx mcg/actuation nasal Allergy Symptoms #16 grams spray,suspension (Flonase Allergy Relief) pantoprazole 40 mg tablet,delayed 40 mg PO BID #90 tabs 03/13/22 03/30/22 03/29/22 Rx release potassium chloride 40 mEq/15 mL 40 meq (15 mL) PO QAM #473 mL 03/13/22 03/30/22 03/29/22 Rx oral liquid sucralfate 1 gram tablet 1 g PO Q6H PRN Acid Reflux #90 tabs 03/13/22 03/30/22 03/29/22 Rx nutrition tx glu See Rx Instructions PO .per hour 03/18/22 03/28/22 Unknown Rx intol,lac-free,soy-fiber 0.08 #237 mL gram-1.5 kcal/mL liquid (Glucerna 1.5 Joshua) hydrocodone 7.5 mg-acetaminophen 1 tab PO Q8H PRN pain 30 days #90 03/19/22 03/30/22 03/30/22 Rx 325 mg tablet tabs tiotropium bromide 18 mcg capsule See Rx Instructions .Route 03/19/22 03/30/22 03/29/22 Rx with inhalation device (Spiriva .COMPLEX #90 caps with HandiHaler) ondansetron 4 mg disintegrating See Rx Instructions .Route 03/23/22 03/28/22 Unknown Rx tablet .COMPLEX #30 tabs sulfamethoxazole 800 1 tab PO BID 10 days #20 tabs 03/25/22 03/30/22 03/30/22 Rx mg-trimethoprim 160 mg tablet (Bactrim DS) Allergies Allergy/AdvReac Type Severity Reaction Status Date / Time lactose Allergy Unknown ADR-Gastrointestinal Verified 03/28/22 09:13 Upset Current Medications Generic Name Dose Route Start Last Admin Trade Name Freq PRN Reason Stop Dose Admin Sodium Chloride 1,000 mls @ 30 mls/hr 03/30/22 10:45 03/30/22 11:12 Sodium Chloride 0.9% IV 03/31/22 10:44 30 mls/hr .Q24H HUSAM Administration PFS Anesthesia Medical History Acute eczema of hand Acute kidney injury 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 Benign essential HTN COPD (chronic obstructive pulmonary disease) Depression Esophageal cancer GERD (gastroesophageal reflux disease) History of jejunostomy tube placement Hypokalemia Low testosterone EMMANUEL (obstructive sleep apnea) Presence of other vascular implants and grafts Right subclavian Power Port inserted 12/[address] Boles/KARUNA Type 2 diabetes mellitus, without long-term current use of insulin Surgical History History of cholecystectomy History of esophagogastroduodenoscopy (EGD) (01/07/22) Family History Father Cancer Lung Hyperlipidemia Brother Lung disease COPD Other Alzheimer disease Hypertension Denies family history of Diabetes CAD (coronary artery disease) Clotting disorder Dementia Psychiatric illness Chronic kidney disease (CKD) Suicide Anesthesia complication Bleeding disorder Stroke Social History Smoking and tobacco status: current every day smoker cigarettes Packs smoked per day: 1 Alcohol intake: former Data Anesthesia Cardiac Studies: No Data to Display
[2022-03-30] MEDS: ceFAZolin 2,000 MG in sodium chloride 0.9% (plus) 50 ML 100 MG IV (12:38)
[2022-03-30] MEDS: lidocaine 1% INJ 50 mL 30 ML XX (13:20)
--- NOTE | 2022-03-30 13:21 | P.OP_ITS ---
Operative Report Date of procedure: March 30, 2022 Pre-op diagnosis: Preop Diagnosis Abdominal wall abscess Post-op diagnosis: The same Procedure done: 1-Incision and drainage of abdominal wall abscess 2-Sharp debridement of abscess cavity Implants: Quarter inch [place] drain Specimens removed/disposition: Swabs for cultures and sensitivities Surgeon: Alex Boles MD Online Marketing Coordinator: deployment technician Lacey Circulating nurses Patricia and Niesha Anesthesia: MAC (manager corporate communications Patricio) Estimated blood loss (mL): 10 Procedure: After identifying the patient holding area,patient was then taken to the operative suite, was placed in supine position, IV propofol was given by anesthesia, prophylactic IV antibiotics were given per protocol, both arms were tucked and all pressure points were padded, prep and drape of the anterior abdominal wall and around the feeding jejunostomy site was done under the usual sterile technique. Time-out was done verifying the patient's name/date of /planned procedure and destination after the procedure, all were in agreement After palpation of the indurated area at the previous incision and drainage site, hemostat was thrusted and more pus was revealed, swabs were obtained for cultures and sensitivities. I elected to extend the incision more laterally and medially and all the loculations were broken down by the examining finger. Noticed that there was some drainage around the feeding jejunostomy but there was no violation of the integrity of the tube site. Copious and thorough irrigation was achieved. sharp debridement was achieved of the abscess wall cavity using curette. And Bovie cauterization.following that I elected to create a counterincision for lateral and a [place] quarter-inch drain was passed and tied down using 2-0 silk for future flossing. Predebridement measurements 1 x 0.5 cm and a depth of [address] to the subcutaneous layer Postdebridement measurements 3 x 2 x [address] to the subcutaneous layer Approximation of skin edges by 2-0 nylon,Packing the wound with mini Kerlix wet-to-dry.DuoDERM fashioning around the feeding jejunostomy and skin protection. Noticed skin excoriation around the feeding jejunostomy and that was covered by DuoDERM. Dry ABDs were then applied and secured by tape to the abdominal wall. Patient tolerated the procedure well, count of instruments, needle and sponges were completed at the end of the procedure. And then patient was taken to the recovery area in stable condition. I Was present for the whole entire procedure
--- NOTE | 2022-03-30 13:49 | ANE.PACU2 ---
Inpatient post-anesthesia follow up: Airway intact: Yes Vital signs: Temperature 98.0 F Pulse Rate 101 Respiratory Rate 18 Blood Pressure 112/73 Pulse Oximetry 98 Oxygen Delivery Me thod Room Air Oxygen Flow Rate Fraction of Inspir ed Oxygen Hydration adequate: Yes Nausea and vomiting: No Pain level: 1 Mental status: Baseline
[2022-03-30] MEDS: HYDROcodone-acetaminophen 5-325 mg Tablet 1 TAB PO (14:30)
== END 2022-03-30 14:53 | disposition home or self-care (01) ==
PROVIDERS: PCP Family Medicine; Visit Provider Surgery
PROC: (CPT 11042; principal; 2022-03-30 11:55)
DX: L02.211 Cutaneous abscess of abdominal wall (principal); C15.9 Malignant neoplasm of esophagus, unspecified; I10 Essential (primary) hypertension; J44.9 Chronic obstructive pulmonary disease, unspecified; G47.33 Obstructive sleep apnea (adult) (pediatric); E11.9 Type 2 diabetes mellitus without complications; F17.210 Nicotine dependence, cigarettes, uncomplicated
CPT/HCPCS: 11042; 87070; 87075; 87077; 87205; J0131; J0690; J2250; J2704; J3010; J7030

== ENCOUNTER → 2022-04-02 13:18 | Outpatient (BNVA) | payer MEDICARE, MEDICAID, SELFPAY | PROVIDERS: PCP Family Medicine; Visit Provider Surgery | DX: Z09 Encounter for follow-up examination after completed treatment for conditions other than malignant neoplasm (principal) | CPT/HCPCS: 99024 ==

== ENCOUNTER 2022-04-06 08:27 | Oncology outpatient (recurring) (ONCR) | payer MEDICARE, MEDICAID, SELFPAY | END 2022-04-29 23:59 | disposition home or self-care (01) | PROVIDERS: PCP Family Medicine; Visit Provider Radiology Radiation Oncology | DX: C15.5 Malignant neoplasm of lower third of esophagus (principal); C77.0 Secondary and unspecified malignant neoplasm of lymph nodes of head, face and neck; C78.7 Secondary malignant neoplasm of liver and intrahepatic bile duct; F17.210 Nicotine dependence, cigarettes, uncomplicated; R11.0 Nausea; G89.3 Neoplasm related pain (acute) (chronic); Z79.891 Long term (current) use of opiate analgesic; Z79.899 Other long term (current) drug therapy | CPT/HCPCS: 99215 ==

== ENCOUNTER → 2022-04-09 13:27 | Outpatient (BNVA) | payer MEDICARE, MEDICAID, SELFPAY | PROVIDERS: PCP Family Medicine; Visit Provider Surgery | DX: Z98.890 Other specified postprocedural states (principal) | CPT/HCPCS: 99024 ==

== ENCOUNTER → 2022-05-04 13:39 | Outpatient (BNVA) | payer MEDICARE, MEDICAID, SELFPAY | PROVIDERS: PCP Family Medicine; Visit Provider Surgery | DX: Z98.890 Other specified postprocedural states (principal); Z51.5 Encounter for palliative care | CPT/HCPCS: 99024 ==

== ENCOUNTER 2022-06-08 11:41 | Outpatient (CLI) | payer MEDICARE, MEDICAID, SELFPAY ==
[2022-06-08 13:55] LABS: SARS Covid-2 Antigen negative (Negative)
== END 2022-06-08 11:42 | disposition home or self-care (01) ==
LOC: LAB 11:44
PROVIDERS: PCP Family Medicine; Visit Provider Internal Medicine
DX: R06.02 Shortness of breath (principal)
CPT/HCPCS: 87426